=== PATIENT | female | born 1940 | race Caucasian/White ===

== ENCOUNTER 2017-12-05 19:12 | Inpatient (IN) | payer OTHER, BC ==
--- NOTE | 2017-12-05 19:47 | CPEKG ---
Heart Rate: 80 RR Interval: 750 P-R Interval: 220 QRSD Interval: 86 QT Interval: 344 QTC Interval: 397 P [place]: 31 QRS [place]: 1 T Wave [place]: 20 EKG Severity - ABNORMAL ECG - EKG Impression: SINUS RHYTHM EKG Impression: FIRST DEGREE AV BLOCK EKG Impression: BORDERLINE T ABNORMALITIES, ANTERIOR LEADS Electronically Signed By: Tim Tucker 05-Dec-2017 21:10:25
[2017-12-05 19:51] LABS: PLATELET COUNT 242 10^3/uL (150-400)
--- NOTE | 2017-12-05 19:52 | EDPHY ---
H & P Time Seen by Provider: 12/05/17 19:17 HPI/ROS: HPI Shortness of breath, not feeling well. 77-year-old female by private vehicle with her daughter. This patient is from [place]. She has been visiting her daughter looking at housing out here for relocation. She reports that yesterday with their out about looking at apartment she started feeling more fatigued than usual and had some mild shortness of breath. She was supposed to fly home this morning to [place] but did not feel up for this and her daughter changed her flight. She slept most of the day and woke at about 3:24 p.m.. She then started complaining of feeling more short of breath this evening. This is worse when she is laying flat. She reports having an intermittent dry hacky cough and had a temperature of 101 degrees at home this evening. No urinary complaints. Denies myalgias and arthralgias. No chest pain. ROS: Constitutional: As above. Eyes: No discharge. No changes in vision. ENT: No sore throat. No nasal congestion or rhinorrhea. Respiratory: No cough. As above. Cardiac: No chest pain, no palpitations. Gastrointestinal: No abdominal pain, no vomiting, no diarrhea. Genitourinary: No hematuria. No dysuria or increased frequency with urination. Musculoskeletal: No back pain. No neck pain. No myalgias or arthralgias. Skin: No rashes. Neurological: No headache. No focal weakness or altered sensation. Past medical history: Rheumatoid arthritis. She is on Remicade for this. Atrial fibrillation, type 2 diabetes, hypertension, hyperlipidemia, diverticulitis. Social history: As above. Nonsmoker. No alcohol. Physical Exam: General Appearance: Alert, no distress. This patient is responding to questions appropriately and in full sentences. This patient appears well- hydrated and well-nourished. Eyes: Pupils equal and round no pallor or injection. No lid edema, erythema or injection. Respiratory: There are no retractions, lungs are clear to auscultation with good air movement bilaterally. Cardiovascular: Regular rate and rhythm. No murmur. Gastrointestinal: Abdomen is soft and nontender, no masses, bowel sounds normal. No focal tenderness at McBurney's point. No Yañez sign. Neurological: Motor sensory function is grossly intact. Cranial nerves are normal. Gait is normal. Skin: Warm and dry, no rashes. Musculoskeletal: Neck is supple and nontender. Extremities are symmetrical. All joints range without pain or impingement. Psychiatric: No agitation. No depression. Database: EKG: EKG time is 7:45 p.m.; EKG shows a narrow complex normal sinus rhythm with a ventricular rate of 80. Intermittent PACs. 1st degree AV block. The QRS, QT intervals are within normal limits. There are no ST-T wave changes indicative of ischemic or injury pattern. No evidence of right heart strain. Interpreted by me. Imaging: Chest x-ray AP portable; the cardiac mediastinal silhouette is unremarkable. Cardiomegaly. No evidence of infiltrate or pneumothorax. No acute cardiopulmonary disease process noted. Interpreted by me. CT angiogram of chest; no pulmonary embolism. Please see radiologists report for further details. Procedures: Emergency department course: IV placed. Patient was placed on a die caster. Vital signs reviewed. Moderately hypertensive. Room air oxygen 89%. EKG obtained and reviewed by myself. 8:30 p.m., discussed emergency department workup results with patient and daughter. She is on 2 L of oxygen currently with a pulse oximetry of 91-92%. She states that she feels better as long as she is not exerting herself. I discussed an elevated D-dimer. She and her daughter consent to CT imaging to evaluate for pulmonary embolus. 9:00 p.m., we got the patient up and walked around the emergency department briefly. On room air pulse oximetry, drops to 83-84%. I discussed admission. The daughter would feel much more comfortable if she stayed in the hospital tonight. Hospitalist paged. 9:05 p.m., discussed case in detail with hospitalist. Patient accepted for admission Dr. Stone. Her remaining emergency department course under my care has been uneventful she was admitted in stable condition. Differential Diagnosis: The differential diagnosis on this patient includes but is not limited to viral syndrome/influenza, pneumonia, CHF, acute mountain sickness, acute coronary syndrome. This represents a partial list of diagnoses considered. These considerations are based on history, physical exam, past history, reassessment and diagnostic testing. Smoking Status: Former smoker Constitutional: Initial Vital Signs Temperature (C) 37.2 C 12/05/17 19:21 Heart Rate 84 12/05/17 19:21 Respiratory Rate 18 12/05/17 19:21 Blood Pressure 160/69 H 12/05/17 19:21 O2 Sat (%) 89 L 12/05/17 19:21 O2 Delivery Mode Nasal Cannula O2 (L/minute) 2 Allergies/Adverse Reactions: cephalexin [From Keflex] Allergy (Verified 12/05/17 19:30) ciprofloxacin Allergy (Verified 12/05/17 19:30) Home Medications: Medication Instructions Recorded Apixaban [Eliquis] 5 mg PO BID 12/05/17 Cetirizine [ZyrTEC 10 mg (*)] 10 mg PO HS 12/05/17 Cholecalciferol Vit D3 [Vitamin D3 2,000 units PO HS 12/05/17 2000 units tab (OTC)] DULoxetine [Cymbalta 60 MG (*)] 60 mg PO HS 12/05/17 Fluticasone Nasal [Flonase Nasal 2 sprays NASAL DAILY PRN 12/05/17 [place] (RX)] Losartan Potassium [Cozaar 50 mg 50 mg PO HS 12/05/17 (*)] Ranitidine HCl [Zantac] 150 mg PO BID 12/05/17 Remicade Infusion 0 mg IV .Q8WK 12/05/17 Simvastatin [Zocor] 20 mg PO HS 12/05/17 Verapamil ER [[place] SR/ER 240MG 240 mg PO HS 12/05/17 (*)] Mesalamine [Delzicol] 1,200 mg PO BID 12/06/17 metFORMIN HCL [Glucophage 500 mg 500 mg PO BIDMEAL 12/06/17 (*)] Medical Decision Making - Data Points Laboratory Results: Laboratory Results 12/05/17 19:45 12/05/17 19:45 Microbiology Results: MICROBIOLOGY 12/05/17 20:06 Nasal, Sinus - [place] Viral Transport Respiratory Panel ( PCR) - Final No Organism Detected Medications Given: Acetaminophen (Tylenol) 650 mg PO Q4HRS PRN PRN Reason: Pain, Mild/Fever, Can Take PO Stop: 06/03/18 21:11 Last Admin: 12/06/17 09:05 Dose: 650 mg Famotidine (Pepcid) 20 mg PO BID MITESH Stop: 06/03/18 21:59 Last Admin: 12/06/17 09:05 Dose: 20 mg Mesalamine (Delzicol) 1,200 mg PO BID MITESH Stop: 06/04/18 10:44 Last Admin: 12/06/17 12:29 Dose: 1,200 mg Throat Lozenges (Cepacol Lozenge) 1 ea PO PRN PRN PRN Reason: Sore Throat Stop: 06/04/18 08:33 Last Admin: 12/06/17 09:05 Dose: 1 ea Trazodone HCl (Trazodone) 50 mg PO HS [facility] Stop: 06/03/18 21:59 Last Admin: 12/05/17 23:29 Dose: 50 mg Discontinued Medications Apixaban (Eliquis) 5 mg PO BID MITESH Stop: 06/03/18 21:59 Last Admin: 12/06/17 09:05 Dose: 5 mg Departure - Departure Disposition: [facility] Acute Clinical Impression: Dyspnea, Hypoxia, Leukocytosis
[2017-12-05 20:01] LABS: CREATINE KINASE 26 IU/L (0-156)
[2017-12-05 20:08] LABS: INR 1.33 (0.83-1.16); PROTIME(PATIENT) 16.7 SEC (12.0-15.0)
[2017-12-05] MEDS ORDERED: IOPAMIDOL (ISOVUE 370) 100 ML BTL IV ONE (20:36)
[2017-12-05] MEDS ORDERED: ONDANSETRON DISINTEGRATING 4 MG TAB PO PRN (21:12)
[2017-12-05] MEDS ORDERED: ONDANSETRON 4 MG/2 ML VIAL IVP PRN (21:12)
[2017-12-05] MEDS ORDERED: NS 1,000 ML IV SCH (21:15)
[2017-12-05] MEDS ORDERED: guaiFENesin 600 MG TAB.ER PO PRN (21:50)
[2017-12-05] MEDS ORDERED: BENZONATATE 100 MG CAP PO PRN (21:50)
[2017-12-05] MEDS ORDERED: guaiFENesin/CODEINE PHOS 10 ML UDCUP PO PRN (21:50)
--- NOTE | 2017-12-05 21:58 | PDGENHP ---
History and Physical - Chief Complaint Acute shortness of breath - History of Present Illness Primary care provider: In [place] HPI: 77-year-old female presenting with acute shortness of breath characterized as dyspnea on exertion with associated generalized fatigue, nonproductive cough, sore throat and sinus congestion, and increased thirst. She reports that onset of symptoms were on the day prior to presentation and duration has been persistent worsening thereafter. She reports that overnight, she awakened numerous times feeling short of breath, or the symptom was not particularly alleviated by sitting upright or by changing position. She reports that she has chronic nocturia, but denies any overt dysuria, diarrhea, vomiting, chest pain. She reports that the shortness of breath is exacerbated by exertion, and somewhat alleviated by rest. She has been sleeping more than she normally would over the past 2 days, and between 5-6:00 p.m. On the date of arrival, she reports that the shortness of breath became quite severe and was associated with a fever to 101 degrees F. She is originally from [place] and prior to traveling to [facility], she had not been experiencing any exertional shortness of breath. Upon arrival to [place] 3 weeks ago, she did note some increased thirst and shortness of breath , but it would be alleviated by taking deep breaths and by resting. She has since traveled to visit her son in [place], and she reports no pulmonary or infectious symptoms during that time. Over the past several days she has had increased physical activity with her daughter, as she is looking for places to potentially move here in the [place] area. With the increase physical activity came increased shortness of breath symptoms. History Information - Allergies/Home Medication List Allergies/Adverse Reactions: cephalexin [From Keflex] Allergy (Verified 12/05/17 19:30) ciprofloxacin Allergy (Verified 12/05/17 19:30) Home Medications: Apixaban [Eliquis] 5 mg PO BID 12/05/17 [Last Taken 12/05/17 09:00] Cetirizine [ZyrTEC 10 mg (*)] 10 mg PO HS 12/05/17 [Last Taken 12/04/17] Cholecalciferol Vit D3 [Vitamin D3 2000 units tab (OTC)] 2,000 units PO HS 12/05 [Last Taken 12/04/17] Cymbalta Unk Dose mg PO HS 12/05/17 [Last Taken 12/04/17] Fluticasone Nasal [Flonase Nasal [place] (RX)] 2 sprays NASAL DAILY PRN 12/05/17 [ Last Taken Unknown] Losartan Unk Dose mg PO HS 12/05/17 [Last Taken 12/04/17] Remicade Infusion 0 mg IV .Q8WK 12/05/17 [Last Taken 09/27/17] Simvastatin Unk Dose mg PO HS 12/05/17 [Last Taken 12/04/17] Verapamil Unk Dose mg PO HS 12/05/17 [Last Taken 12/04/17] Zantac Unk Dose mg PO BID 12/05/17 [Last Taken 12/05/17 09:00] I have personally reviewed and updated: family history, medical history, social history, surgical history - Past Medical History atrial fibrillation (Diagnosis several years ago, had a stress test at that time ) Additional medical history: Rheumatoid arthritis, last dose of Remicade 2017, currently well controlled. Chronic nocturia. Chronic sinus congestion. Hypertension. Hyperlipidemia. Diabetes mellitus type 2 - Surgical History Additional surgical history: Knee surgery, shoulder surgery - Family History Additional family history: Second-degree relative with colon cancer, sibling with testicular cancer - Social History Smoking Status: Former smoker Alcohol Use: Occasionally (Most recent alcohol consumption was 3 alcoholic beverages 2 days ago) Drug Use: None Additional social history: Resides in [place], does not have a formal exercise routine at baseline Review of Systems Review of Systems: ROS: 10pt was reviewed & negative except for what was stated in HPI & below Constitutional: Reports: fever, weakness EENMT: Reports: nose congestion, sore throat Respiratory: Reports: cough, shortness of breath Physical Exam Physical Exam: Temp Pulse Resp BP Pulse Ox 37.2 C 81 16 159/78 H 94 12/05/17 19:21 12/05/17 20:31 12/05/17 20:31 12/05/17 20:31 12/05/17 21:15 O2 (L/minute) 2 Constitutional: no apparent distress, appears nourished, not in pain, uncomfortable Eyes: PERRL, anicteric sclera, EOMI Ears, Nose, Mouth, Throat: moist mucous membranes, hearing normal, ears appear normal, no oral mucosal ulcers, other (No tonsillar lesions) Cardiovascular: other (Regularly irregular), No systolic murmur, No tachycardia , No edema Respiratory: inspiratory crackles (Bilateral bases), No reduced air movement, No expiratory wheeze, No bronchial breath sounds, No respiratory distress Gastrointestinal: normoactive bowel sounds, soft, non-tender abdomen, other ( Unclear whether she has a soft tissue mass in the left abdomen), No distension Genitourinary: no bladder fullness, no bladder tenderness Skin: No abrasion, No rash Musculoskeletal: other (No effusions over the bilateral knees) Neurologic: AAOx3, sensation intact bilaterally, No weakness (Motor strength 5/ 5 bilateral lower extremity), No facial droop Psychiatric: interacting appropriately, not anxious, not encephalopathic, thought process linear Lymph, Heme, Immunologic: other (Mildly tender 2 cm bilateral submandibular lymph nodes without any anterior posterior cervical lymphadenopathy) Lab Data & Imaging Review 12/05/17 19:45 12/05/17 19:45 WBC 19.52 10^3/uL (3.80-9.50) H 12/05/17 19:45 RBC 4.63 10^6/uL (4.18-5.33) 12/05/17 19:45 Hgb 13.6 g/dL (12.6-16.3) 12/05/17 19:45 Hct 40.4 % (38.0-47.0) 12/05/17 19:45 MCV 87.3 fL (81.5-99.8) 12/05/17 19:45 MCH 29.4 pg (27.9-34.1) 12/05/17 19:45 MCHC 33.7 g/dL (32.4-36.7) 12/05/17 19:45 RDW 14.6 % (11.5-15.2) 12/05/17 19:45 Plt Count 242 10^3/uL (150-400) 12/05/17 19:45 MPV 9.8 fL (8.7-11.7) 12/05/17 19:45 Neut % (Auto) 74.2 % (39.3-74.2) 12/05/17 19:45 Lymph % (Auto) 13.6 % (15.0-45.0) L 12/05/17 19:45 Alfalfa % (Auto) 11.2 % (4.5-13.0) 12/05/17 19:45 Eos % (Auto) 0.1 % (0.6-7.6) L 12/05/17 19:45 Baso % (Auto) 0.3 % (0.3-1.7) 12/05/17 19:45 Nucleat RBC Rel Count 0.0 % (0.0-0.2) 12/05/17 19:45 Absolute Neuts (auto) 14.52 10^3/uL (1.70-6.50) H 12/05/17 19:45 Absolute Lymphs (auto) 2.65 10^3/uL (1.00-3.00) 12/05/17:45 Absolute Monos (auto) 2.18 10^3/uL (0.30-0.80) H 12/05/17 19:45 Absolute Eos (auto) 0.01 10^3/uL (0.03-0.40) L 12/05/17 19:45 Absolute Basos (auto) 0.05 10^3/uL (0.02-0.10) 12/05/17 19:45 Absolute Nucleated RBC 0.00 10^3/uL (0-0.01) 12/05/17 19:45 Immature Gran % 0.6 % (0.0-1.1) 12/05/17:45 Immature Gran # 0.11 10^3/uL (0.00-0.10) H 12/05/17 19:45 PT 16.7 SEC (12.0-15.0) H 12/05/17 19:45 INR 1.33 (0.83-1.16) H 12/05/17 19:45 APTT 44.8 SEC (23.0-38.0) H 12/05/17 19:45 D-Dimer 0.95 ug/mLFEU (0.00-0.50) H 12/05/17 19:45 VBG Lactic Acid 1.1 mmol/L (0.7-2.1) 12/05/17 19:45 Sodium 133 mEq/L (135-145) L 12/05/17 19:45 Potassium 4.1 mEq/L (3.5-5.2) 12/05/17 19:45 Chloride 101 mEq/L (97-110) 12/05/17 19:45 Carbon Dioxide 21 mEq/l (22-31) L 12/05/17 19:45 Anion Gap 11 mEq/L (8-16) 12/05/17 19:45 BUN 16 mg/dL (7-23) 12/05/17 19:45 Creatinine 0.7 mg/dL (0.6-1.0) 12/05/17 19:45 Estimated GFR > 60 12/05/17 19:45 Glucose 137 mg/dL (70-100) H 12/05/17 19:45 Calcium 10.2 mg/dL (8.5-10.4) 12/05/17 19:45 Creatine Kinase 26 IU/L (0-156) 12/05/17 19:45 CK-MB (CK-2) Fraction 0.43 ng/mL (0.00-3.19) 12/05/17 19:45 Troponin I 0.015 ng/mL (0.000-0.034) 12/05/17 19:45 NT-Pro-B Natriuret Pep 1530 pg/mL (0-450) H 12/05/17 19:45 Visualized and Interpreted imaging results: Yes Interpretation: Chest CT with atelectasis, no focal consolidation Visualized and Interpreted EKG results: Yes EKG Interpretation: Positive for: other (Sinus arrhythmia, Pac, Q-wave in lead 3 , 1st degree AV block, T-wave flattening in lead 3) Assessment & Plan Assessment: 77-year-old female presents with acute shortness of breath and fatigue Plan: 1. Shortness of breath. Acute, new problem this provider, further workup indicated. Unclear whether this is secondary to a viral or infectious precipitant, verses cardiopulmonary etiology, but patient has significant leukocytosis is suggestive that there will be a clearly identifiable cause -I suspect that her hypoxia is contributing to her symptomatic shortness of breath, and I have discussed this with Dr. Tim Tucker, and he has reported that the patient's initial O2 saturation was 88% on room air at rest and dropped to 83% on room air with exertion, indicating that there is hypoxic cause of her symptom -D-dimer positive, CT angiogram without focal airspace disease, awaiting read regarding whether there is any pulmonary embolism -respiratory viral panel sent, currently pending, will also check procalcitonin level, sed rate, blood cultures -if no infectious etiology is identified, will pursue further cardiac cause and get echocardiogram in a.m., Lexiscan stress test -supportive cough medication 2. Acute hyponatremia. Most likely secondary to either increased free water consumption or hypovolemia in the setting of infection, will give normal saline at 100 cc/hour overnight and repeat serum sodium level in a.m., checking urine sodium level with urinalysis 3. Rheumatoid arthritis. Chronic, patient chronically on Remicade, it is unlikely that this is the cause of patient's acute symptomology 4. Paroxysmal atrial fibrillation. Currently in a sinus mechanism on EKG, she is at risk for dove all the into paroxysmal atrial fibrillation in the setting of acute illness, will monitor on telemetry in the PCU -continue Eliquis 5. Hypertension. Continue home medications once reconciled 6. Leukocytosis. Significantly elevated, patient reports that she may have a history of mildly elevated white blood cell count but not nearly to this degree , will order outside records from her primary care provider office in a.m. Diet. Regular Prophylaxis. High risk patient, Eliquis Code. Full per patient, son and daughter are joint MD POA Disposition. Anticipated discharge is 12/06, pending further workup and stabilization of condition as outlined above.
[2017-12-05] MEDS: FAMOTIDINE 20 MG TAB PO SCH (23:29)
[2017-12-05] MEDS: APIXABAN 5 MG TAB PO SCH (23:29)
[2017-12-05] MEDS: traZODone 50 MG TAB PO SCH (23:29)
[2017-12-06 04:43] LABS: PLATELET COUNT 213 10^3/uL (150-400)
[2017-12-06] MEDS ORDERED: GADOBUTROL 10 ML VIAL IVP ONE (08:46)
[2017-12-06] MEDS: APIXABAN 5 MG TAB PO SCH (09:05)
[2017-12-06] MEDS: ACETAMINOPHEN 325 MG TAB PO PRN ×2 (09:05→21:47)
[2017-12-06] MEDS: FAMOTIDINE 20 MG TAB PO SCH ×2 (09:05→21:54)
[2017-12-06] MEDS: CEPACOL LOZENGE PO PRN ×2 (09:05→21:48)
--- NOTE | 2017-12-06 09:09 | PDMN ---
Medical Necessity Medical necessity: est los>2mn for hyponatremia, hypoxia likely r/t large liver masses, concerning for malignancy; admit for additional urgent w/u with MRI, US thyroid, possible colonoscopy, and surgical and oncology consults; comorbid afib, and RA; per order and H&P 12/05/17
[2017-12-06] MEDS ORDERED: FLUTICASONE NASAL 120 SPRAYS/16 GM MDI EACHNARE PRN (10:35)
[2017-12-06] MEDS ORDERED: MESALAMINE 400 MG CAP.DR PO SCH (10:45)
--- NOTE | 2017-12-06 12:01 | ASMTCMCOM ---
CM Note CM Note Notes: 12/06/2017 Case Management Note Reviewed chart. Discussed with PT and RN. PT eval indicates pt will d/c independent. Pt admitted for hypoxia and leukocytosis. There is a possiblity of malignancy that is requiring further work up. Case Management d/c poc: to be determined pending outcome of workup and pt needs at time of d/c. Case Management to follow. Date Signed: 12/06/2017 12:01 PM Electronically Signed By:Karina Cuadra RN
--- NOTE | 2017-12-06 14:50 | ECHO ---
[email or web address] [address] Main: [phone] Fax: Transthoracic Echocardiogram Name: JOSIE ROSSI MR#: [id number] Study Date: 12/06/2017 Study Time: 10:29 AM Date of : 1940 Age: 77 year(s) Height: 162.6 cm (64 in.) Weight: 81.65 kg (180 lb.) BSA: 1.87 m2 Gender: Female Examination: Echo Indication: Image Quality: Adequate Contrast: Requested by: Chinmay Stone BP: / Heart Rate: Rhythm: Indication: Procedure Staff [employer]: Vicki Ramirez [facility] Reading Physician: Devang Lucia MD Requesting Provider: Measurements: Chambers Valvular Assessment AV/MV Valvular Assessment TV/PV Normal Normal Normal Name Value Range Name Value Range Name Value Range Ao Katarzyna (2D): 2.9 cm (1.4 cm-2.6 AV meanP mmHg ( - ) TR Vmax: 2.80 mm/s ( - ) cm) JANINE (VTI): 1.8 cm ( - ) TR PGmax: 31 mmHg ( - ) IVSd (2D): 1.1 cm (0.6 cm-1.1 MV E Vmax: 0.82 m/s ( - ) syst. PAP: 36 mmHg ( - ) cm) MV A Vmax: 0.98 m/s ( - ) PV Vmax: 1.07 m/s (0.6 m/s-0.9 LVDd (2D): 4.7 cm (3.9 cm-5.3 MV E/A: 0.84 ( - ) m/s) cm) MV PHT: 0.070 s ( - ) PV PGmax: 5 mmHg ( - ) LVDs (2D): 2.6 cm (2.1 cm-4 cm) MVA (PHT): 3.1 s ( - ) LVPWd (2D): 1.0 cm ( - ) LVOTd 1.8 cm 1.8 cm mm LVEF (BP): 62 % (>=55 %) RVDd(2D): 3.2 cm (1.9 cm-3.8 cmmm) Continued Measurements: Chambers Valvular Assessment AV/MV Valvular Assessment TV/PV Name Value Name Value Name Value LADs: 4.5 cm MV DecTime: 229 m/s CVP (est.): 5 mmHg LADs Lon.8 cm MV E' Septal: 0.05 m/s LA Area: 20.4 cm2 MV E/E' Septal: 17.60 LA Volume: 59 ml MV E/E' Lateral: 10.40 LA Volume Index: 31.6 ml/m2 RA Area: 13.0 cm2 Additional Vessels Patient: JOSIE ROSSI Study Date: 12/06/2017 Page 1 of 2 10:29 AM Name Value Ao Ascendin.9 cm Inferior Vena Cava: 1.4 cm Findings: Left Ventricle: Normal size left ventricle. No LV hypertrophy. Normal global systolic LV function. EF is 62 %. No regional wall motion abnormality. Normal diastolic LV function. Right Ventricle: Normal size right ventricle. Left Atrium: The left atrium is normal in size. Right Atrium: The right atrium is normal in size. Mitral Valve: The mitral valve is normal in appearance and function. Mild mitral valve leaflet calcification is present. Mild mitral valve regurgitation is present. No mitral stenosis is present. Aortic Valve: The aortic valve is normal in appearance and function. Aortic sclerosis is present. There is no aortic valve regurgitation. No aortic valve stenosis is present. Tricuspid Valve: The tricuspid valve is normal in appearance and function. Mild tricuspid regurgitation is present. The pulmonary artery pressure is normal. Right ventricular systolic pressure measures 36mmHg. Pulmonic Valve: The pulmonic valve is normal in appearance and function. There is no pulmonic regurgitation seen. Aorta: The aorta is normal. Normal size aortic root measuring 2.9 cm. Normal size ascending aorta measuring 2.9 cm. IVC: The IVC is normal sized. Pericardium: No pericardial effusion. No pleural effusion. (No Signature Object) Patient: JOSIE ROSSI Study Date: 12/06/2017 Page 2 of 2 10:29 AM [id number]
--- NOTE | 2017-12-06 15:00 | GHP ---
[f rep st] HISTORY AND PHYSICAL DATE OF ADMISSION: 12/05/2017 REASON FOR CONSULTATION: Liver mass with left renal mass. HISTORY OF PRESENT ILLNESS: The patient is a pleasant 77-year-old female who currently lives in [place], [place]. Her children live locally. She was visiting her children in the process of moving permanently to [place] when she noted acute onset of shortness of breath, fatigue, nonproductive coug h, and fever. She presented to the emergency department at [facility] on December 05. The patient had a CT of the chest performed (CT angiogram). This revealed no evidence of pulmonary embolism. The patient was found to have a large mass in the liver. There was some nonspecific asym metry in the thyroid gland. The patient had a subsequent MRI of the abdomen performed this morning, which demonstrates a large bi lobed mass involving the caudal area of the right lobe of the liver. It measures 9 x 7.5 x 7 cm. It appears to invade the right kidney. It is inseparable from the 2nd portion of the duodenum. There is a small indeterminant lesion in the dome of the right liver. There is an exophytic 3 cm left dora l mass noted. The patient has been otherwise asymptomatic and actually feels better today. She specifically denies abdominal pain or bloating. She denies nausea or vomiting. Denies diarrhea or blood in the stool. Denies black stools. Denies hematuria. Denies flank pain. Denies weight loss. She reports having an unremarkable colonoscopy approximately 2 years ago. When seen this afternoon, she is accompanied by her daughter, Adelina. PAST MEDICAL HISTORY: 1. Longstanding diagnosis of rheumatoid arthritis. The patient has been on Remicade for approximate ly 10 years (last dose September 13, 2017). 2. Hypertension. 3. Hyperlipidemia. 4. Type 2 diabetes. PAST SURGICAL HISTORY: 1. Knee surgery. 2. Shoulder surgery. FAMILY MEDICAL HISTORY: Patient's brother of metastatic testicular cancer at the age of 20. Letty ballard reports a second-degree relative with colorectal cancer. She denies any other known family history of malignancy. SOCIAL HISTORY: The patient is . She lives currently in [place], [place], but is in the process of moving to [place], [place]. Given her new diagnosis, she plans to live locally with her daughter, Adelina. She has a son who lives in [place]. She is retired. 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 She smoked int ermittently during her youth, but quit approximately 40 years ago. She drinks alcohol occasionally. REVIEW OF SYSTEMS: As outlined above. The remainder of a 12-point review of systems otherwise negat janie. PHYSICAL EXAMINATION: GENERAL: Patient is lying comfortably in bed. She is in no acute distress. There is no evidence of scleral icterus. HEART: Regular without murmur. ABDOMEN: Soft, nontender, nondistended. There is specifically no right upper quadrant tenderness, guarding, or rebound. No h epatomegaly. No mass. No abdominal distention. There is no flank tenderness bilaterally. No extre mity swelling or edema. NEUROLOGIC: Patient is alert, oriented, and appropriate. IMAGING STUDIES: As per HPI. LABORATORY STUDIES: Sodium 134, potassium 4.2, chloride 103, bicarb 22, BUN 15, creatinine 0.5, calc ium is 9.9. AFP is 98. CEA is 3.5. CA-125 is 21.2. TSH is 0.751. CBC: White count 19.9, hemoglobin 13.5, hematocrit 42.2; platelet count is 213,000. The patient has a neutrophilia. IMPRESSION: 1. Large bilobed hepatic mass with invasion into right kidney. 2. Left renal mass. 3. Longstanding history of rheumatoid arthritis with recent Remicade use. Zeina is a pleasant 77-year-old female who presents with some nonspecific symptoms and is found to h ave a large right hepatic mass with evidence of invasion of the right kidney and a separate left dora l mass. The picture is concerning for malignancy, though the picture is somewhat nonspecific. I hav e discussed her case with Dr. Stone of the hospitalist service. I agree with the plan for a CT-guid ed biopsy, which is scheduled to be done tomorrow morning. Further recommendations regarding treatme nt options will be made once the biopsy results are known. PLANS: The patient plans to stay locally with her daughter and would like to seek treatment in our o ice. She could potentially be discharged after her biopsy with outpatient followup to review the r esults. The patient and her daughter had multiple questions which were answered. Total time for today's visit was approximately 40 minutes of which greater than 50% was spent in coun seling and care coordination. /[id number]/MODL
[2017-12-06] MEDS ORDERED: metFORMIN HCL 500 MG TAB PO SCH (18:00)
--- NOTE | 2017-12-06 18:53 | HOSPPROG ---
Hospitalist Progress Note Assessment/Plan: Assessment: 77-year-old female presents with acute shortness of breath and fatigue c/b new diagnosis intra-abdominal malignancy Plan: 1. Shortness of breath. Suspect this is 2/2 fatigue from malignancy and hypoxia 2/2 subsequent atelectasis from poor mobility/energy -encouraged IS -cont ongoing o2, wean as lizbeth 2. Acute hyponatremia. Improving w/ IVF NS 3. Rheumatoid arthritis. Chronic, patient chronically on Remicade, will d/w Rheum tomorrow whether she needs to stay off remicade in setting of malignancy 4. Paroxysmal atrial fibrillation. Currently in a sinus mechanism on EKG ( personally interpreted), OK to transfer to off tele, monitor VS -hold eliquis to get liver biopsy 5. Hypertension. Continue home medications 6. Suspected Renal Cell Carcinoma. Acutely identified, new problem, further w/u indicated. MRI abd demonstrating large R lobe of liver mass (9x7.5cm) immediately adjacent to R kidney and portion of duodenum w/ 3x3cm L kidney solid mass, likely RCC -getting tumor markers (AFP, CEA, CA 19-9, CA-125, LDH), thyroid US given abnl on CT, and Echo given possible LA appendage mass (at risk w/ RCC) -d/w Dr. Hernandez, he recommends liver biopsy, will arrange for 48hrs from last eliquis dose (12/06 9 a.m.) Diet. Regular Prophylaxis. High risk patient, SCDs Code. Full per patient, son and daughter are joint MD POA Disposition. Anticipated discharge is 12/08, following liver biopsy. Subjective: patient w/ ongoing fatigue, sleeping during day Objective: Vital Signs Temp Pulse Resp BP Pulse Ox 37.0 C 84 17 166/76 H 94 12/06/17 17:44 12/06/17 17:44 12/06/17 17:44 12/06/17 17:44 12/06/17 17:44 Laboratory Results 12/06/17 03:22 12/06/17 03:22 12/05/17 12/06/17 12/07/17 05:59 05:59 05:59 Intake Total 440 350 Output Total 650 1000 Balance -210 -650 PT 16.7 SEC (12.0-15.0) H 12/05/17 19:45 INR 1.33 (0.83-1.16) H 12/05/17 19:45 - Physical Exam Constitutional: no apparent distress, not in pain, obese, No uncomfortable Cardiovascular: regular rate and rhythym, no murmur, rub, or gallop, No edema Respiratory: no respiratory distress, no rales or rhonchi, inspiratory crackles (bilat) Gastrointestinal: normoactive bowel sounds, soft, non-tender abdomen, other ( hepatomegally, non-tender), No no palpable masses Skin: warm, No rash Neurologic: AAOx3, sensation intact bilaterally, No weakness (motor 5/5 bilat LE ) Psychiatric: not anxious, not encephalopathic, flat affect, No agitated ICD10 Worksheet Patient Problems: Problems Problem Status Onset Dyspnea Acute Hypoxia Acute Leukocytosis Acute
[2017-12-06] MEDS ORDERED: NON-FORMULARY NEW DRUG (Simvastatin [Zocor] 20 MG) PO SCH (21:00)
[2017-12-06] MEDS: ATORVASTATIN CALCIUM 10 MG TAB PO SCH (21:52)
[2017-12-06] MEDS: CHOLECALCIFEROL VIT D3 2,000 UNITS TAB/CAP PO SCH (21:52)
[2017-12-06] MEDS: LOSARTAN POTASSIUM 50 MG TAB PO SCH (21:53)
[2017-12-06] MEDS: CETIRIZINE 10 MG TAB PO SCH (21:53)
[2017-12-06] MEDS: DULoxetine 60 MG CAP PO SCH (21:54)
[2017-12-06] MEDS: VERAPAMIL ER 240 MG TAB PO SCH (21:54)
[2017-12-06] MEDS: traZODone 50 MG TAB PO SCH (21:55)
[2017-12-07] MEDS: FAMOTIDINE 20 MG TAB PO SCH ×2 (09:22→21:10)
[2017-12-07] MEDS: ACETAMINOPHEN 325 MG TAB PO PRN (09:28)
--- NOTE | 2017-12-07 15:54 | HOSPPROG ---
Hospitalist Progress Note Assessment/Plan: Assessment: 77-year-old female presents with acute shortness of breath and fatigue c/b new diagnosis intra-abdominal malignancy Plan: 1. Shortness of breath. Suspect this is 2/2 fatigue from malignancy and hypoxia 2/2 subsequent atelectasis from poor mobility/energy -encouraged IS -counseled patient and daughter that I suspect she will benefit from home o2, particularly with exertion, and we will cont room air challenges at rest and w/ ambulation to confirm, likely 2/2 atelectasis 2/2 immobility 2/2 malignancy 2. Acute hyponatremia. Improved w/ IVF NS 3. Rheumatoid arthritis. Chronic, patient chronically on Remicade, will d/w her Rheum tomorrow whether she needs to stay off remicade in setting of malignancy 4. Paroxysmal atrial fibrillation. Currently in a sinus mechanism on EKG ( personally interpreted), OK to transfer to off tele, monitor VS -hold eliquis x 48hrs to get liver biopsy safely 5. Hypertension. Continue home medications 6. Suspected Renal Cell Carcinoma.MRI abd demonstrating large R lobe of liver mass (9x7.5cm) immediately adjacent to R kidney and portion of duodenum w/ 3x3cm L kidney solid mass, likely RCC -d/w Dr. Hernandez, will arrange outpt f/u once biopsy performed Diet. Regular Prophylaxis. High risk patient, SCDs Code. Full per patient, son and daughter are joint MD POA Disposition. Anticipated discharge is 12/08, following liver biopsy. Subjective: fatigue, attempting to engage w/ therapies Objective: Vital Signs Temp Pulse Resp BP Pulse Ox 36.7 C 57 L 14 125/65 H 95 12/07/17 15:07 12/07/17 15:07 12/07/17 15:07 12/07/17 15:07 12/07/17 15:07 Laboratory Results 12/06/17 03:22 12/06/17 03:22 12/06/17 12/07/17 12/08/17 05:59 05:59 05:59 Intake Total 440 1100 Output Total 650 2600 300 Balance -210 -1500 -300 PT 16.7 SEC (12.0-15.0) H 12/05/17 19:45 INR 1.33 (0.83-1.16) H 12/05/17 19:45 - Time Spent With Patient Time Spent with Patient: greater than 35 minutes Time Spent with Patient: Greater than 35 minutes spent on this patients care, greater than 50% of time spent counseling, educating, and coordinating care regarding the above mentioned plan. - Physical Exam Constitutional: no apparent distress, not in pain, No uncomfortable Cardiovascular: regular rate and rhythym, no murmur, rub, or gallop, No edema Respiratory: inspiratory crackles, No reduced air movement, No expiratory wheeze , No bronchial breath sounds Gastrointestinal: normoactive bowel sounds, soft, non-tender abdomen, no palpable masses Neurologic: AAOx3 Psychiatric: interacting appropriately, not anxious, not encephalopathic, thought process linear ICD10 Worksheet Patient Problems: Problems Problem Status Onset Dyspnea Acute Hypoxia Acute Leukocytosis Acute
[2017-12-07] MEDS: VERAPAMIL ER 240 MG TAB PO SCH (21:10)
[2017-12-07] MEDS: traZODone 50 MG TAB PO SCH (21:10)
[2017-12-07] MEDS: CETIRIZINE 10 MG TAB PO SCH (21:10)
[2017-12-07] MEDS: CHOLECALCIFEROL VIT D3 2,000 UNITS TAB/CAP PO SCH (21:11)
[2017-12-07] MEDS: DULoxetine 60 MG CAP PO SCH (21:11)
[2017-12-07] MEDS: ATORVASTATIN CALCIUM 10 MG TAB PO SCH (21:11)
[2017-12-07] MEDS: LOSARTAN POTASSIUM 50 MG TAB PO SCH (21:11)
[2017-12-08] MEDS: CEPACOL LOZENGE PO PRN (00:39)
--- NOTE | 2017-12-08 09:15 | PDHOMEO2F ---
Home Oxygen Face to Face Home Orders: I certify that a physician or a nurse practitioner or physician's microbiology lab assistant has had a [id number] encounter with this patient on the date of this order due to the diagnosis listed, which relates to the primary reason the patient requires home oxygen. Alternative treatments have been tried, or considered, and deemed ineffective. It is anticipated that supplemental oxygen will result in improvement with treatment. Home oxygen qualifying diagnosis: Metastatic Renal Cell Carcinoma SpO2 on room air (%): 86 Frequency of home oxygen needed: continuous Home oxygen liters per minute: 2 Home oxygen delivery device: nasal cannula Concentrator: Yes E-tanks for mobility and back up: Yes If ordering portable O2, is the patient mobile in the home?: Yes I certify that, based on these findings, the home oxygen is medically necessary for this patient for the following length of time. Length of time home oxygen needed: 99 years
[2017-12-08] MEDS: FAMOTIDINE 20 MG TAB PO SCH (10:05)
--- NOTE | 2017-12-08 10:08 | ASMTCMCOM ---
CM Note CM Note Notes: 12/08/2017 Case Management Note Met w/pt to discuss d/c needs. Pt agreeable to home child care provider and PT. Pt plans to stay with daughter at [address] [address]. Daughter Adelina is best contact for appointments in the home at [phone]. Pt cell is [phone]. Faxed referral to [facility]. Contacted on phone, able to accept pt. Anticipating d/c later today. Case Management d/c poc: [facility] RN PT Date Signed: 12/08/2017 10:07 AM Electronically Signed By:Karina Cuadra RN
--- NOTE | 2017-12-08 12:13 | SOAPPROG ---
MARY ELLEN Progress Note Assessment/Plan: Assessment: 1) Probable metastatic kidney cancer (liver mass / kidney mass) Plan: Case d/w Dr. Bertha Pastrana will get a biopsy of her liver mass today. She will be discharged later today after her biopsy. Our office will arrange for her to follow up with one of our doctors in [place] next week to review the biospy result, and formulate a treatment plan. I have given Zeina the contact information for our office. She is comfortable with the plan. Her questions were answered. 12/08/17 12:10 Subjective: Feels well overall. Denies pain. Biopsy planned for later today. Objective: Vital Signs Temp Pulse Resp BP Pulse Ox 36.7 C 77 16 144/73 H 86 L 12/08/17 10:50 12/08/17 11:14 12/08/17 10:50 12/08/17 10:50 12/08/17 11:14 Laboratory Results 12/06/17 03:22 12/06/17 03:22 12/07/17 12/08/17 12/09/17 05:59 05:59 05:59 Intake Total 1100 1400 Output Total 2600 700 200 Balance -1500 700 -200 PT 16.7 SEC (12.0-15.0) H 12/05/17 19:45 INR 1.33 (0.83-1.16) H 12/05/17 19:45 - Time Spent With Patient Time Spent With Patient: 15 minutes Physical Exam - Physical Exam General Appearance: alert, no apparent distress EENT: PERRL/EOMI Abdomen: non-tender, soft Neuro/Psych: alert, normal mood/affect ICD10 Worksheet Patient Problems: Problems Problem Status Onset Dyspnea Acute Hypoxia Acute Leukocytosis Acute
[2017-12-08] MEDS ORDERED: fentaNYL 100 MCG/2 ML INJ IVP PRN (13:19)
[2017-12-08] MEDS ORDERED: FLUMAZENIL 0.5 MG/5 ML MDV IVP PRN (13:19)
[2017-12-08] MEDS ORDERED: MIDAZOLAM 2 MG/2 ML VIAL IVP PRN (13:19)
[2017-12-08] MEDS ORDERED: MEPERIDINE 25 MG/ML SYR IVP PRN (13:19)
[2017-12-08] MEDS ORDERED: NALOXONE HCL 0.4 MG/ML INJ IVP PRN (13:19)
[2017-12-08] MEDS ORDERED: NS 1,000 ML IV SCH (13:30)
[2017-12-08] MEDS ORDERED: LIDOCAINE 1% 300 MG/30 ML SDV ONE (14:14)
[2017-12-08] MEDS ORDERED: oxyCODONE IR 5 MG TAB PO PRN (17:07)
[2017-12-08] MEDS ORDERED: oxyCODONE IR 5 MG TAB PO ONE (17:07)
--- NOTE | 2017-12-08 17:09 | PDIAF ---
- Diagnosis Diagnosis: New diagnosis metastatic cancer, likely renal cell Code Status: Full Code - Medication Management Discharge Medications: Medications to Continue on Transfer Cetirizine [ZyrTEC 10 mg (*)] 10 mg PO HS 12/05/17 [Last Taken 12/04/17] Cholecalciferol Vit D3 [Vitamin D3 2000 units tab (OTC)] 2,000 units PO HS 12/05 [Last Taken 12/04/17] DULoxetine [Cymbalta 60 MG (*)] 60 mg PO HS 12/05/17 [Last Taken 12/04/17] Fluticasone Nasal [Flonase Nasal [place]] 2 sprays NASAL DAILY PRN 12/05/17 [Last Taken Unknown] Losartan Potassium [Cozaar 50 mg (*)] 50 mg PO HS 12/05/17 [Last Taken 12/04/17] Ranitidine HCl [Zantac] 150 mg PO BID 12/05/17 [Last Taken 12/05/17 09:00] Simvastatin [Zocor] 20 mg PO HS 12/05/17 [Last Taken 12/04/17] Verapamil ER [Calan SR/ER 240MG (*)] 240 mg PO HS 12/05/17 [Last Taken 12/04/17] Acetaminophen [Tylenol 325mg (*)] 650 mg PO Q4HRS PRN tab 12/08/17 [Last Taken Unknown] Apixaban [Eliquis] 5 mg PO BID #0 12/08/17 [Last Taken 12/05/17 09:00] Benzocaine/Menthol 15/4 [Cepacol Lozenge] 1 ea PO PRN PRN lozenge 12/08/17 [ Last Taken Unknown] Benzonatate [Tessalon Pearles] 100 mg PO TID PRN #30 cap 12/08/17 [Last Taken Unknown] oxyCODONE IR [Oxycodone Ir (*)] 5 mg PO Q4 PRN #20 tab 12/08/17 [Last Taken Unknown] Discharge Medications: Refer to the Discharge Home Medication list for PRN reason. PICC Care - Routine: N/A - Orders Services needed: Home Care, Registered Nurse, Physical Therapy Home Care Face to Face: I certify that this patient was under my care and that I had the required [id number] encounter meeting the encounter requirements on the discharge day. My findings support the fact that the patient is homebound as defined in Home Care Face to Face Continued: CMS Chapter 7 Medicare Benefits Manual 30.1.1 , The condition of the patient is such that there exists a normal inability to leave home and consequently, leaving home would require a considerable and taxing effort. Isolation Type: None Oxygen: 2 LPM continuous Diet Recommendation: no restrictions on diet Sutures/[place] Site: keep liver biopsy site clean and dry, bandaged Additional Instructions: 1. Please follow-up with [facility] as scheduled next Wednesday 2. Please restart your Eliquis tomorrow AM 3. Please establish outpatient rheumatology care with Dr. Karl Ferguson at your convenience - Follow Up Care Current Providers and Referrals: CARLA TRIMBLE [Other] - As per Instructions Kailash Munguia MD [Medical Doctor] - Karl Ferguson MD [[facility] Primary Care Provider] -
--- NOTE | 2017-12-08 17:09 | PDRADPN ---
Radiology Procedure Note Date of Procedure: 12/08/17 Radiologist: Sylvain Garcia Preparation Supervisor(s): Sudha De Oliveira US Tech Anesthesia: IV Sedation (Fentanyl only) Pre-op Diagnosis: Liver mass - RT lobe Post-op Diagnosis: Liver mass Indication: Liver mass Procedure: US guided liver biopsy - 18 ga cores x 6 Finding(s): No bleeding Inf/Abcess present in the surg proc area at time of surgery?: No Depth: Organ Space (Liver) EBL: Minimal Complications: None Drains: Other (None)
--- NOTE | 2017-12-08 17:27 | PDDCSUM ---
Discharge Summary Discharge Summary: DISCHARGE SUMMARY FOLLOW-UP ITEMS: Liver biopsy results pending at time of discharge to be followed up by [facility] DATE OF ADMISSION: 12/05/2017 DATE OF DISCHARGE: 12/08/2017 DISCHARGE DIAGNOSES: 1. New diagnosis of metastatic suspected renal cell carcinoma 2. Acute hyponatremia 3. Acute atelectasis 4. Chronic rheumatoid arthritis 5. Paroxysmal atrial fibrillation 6. Chronic hypertension CONSULTATIONS: Oncology PROCEDURES / IMAGING: Liver biopsy on 12/08 CT angiogram of the chest demonstrating no pulmonary embolism MRI of the abdomen demonstrating 7.5 cm x 9 cm mass in the right lobe of the liver as well as 3 cm x 3 cm mass in the left kidney CHIEF COMPLAINT: Acute shortness of breath, fatigue SUBJECTIVE: Patient is feeling well at time discharge, she is having some right sided abdominal pain that this is managed PHYSICAL EXAM ON DISCHARGE: Systolic blood pressure 130-160, heart rate 67, afebrile overnight, SpO2 of 86% on room air, inspiratory crackles in the bilateral bases, alert awake oriented x3, in no apparent distress LABS ON DISCHARGE: White blood cell count 44533, hemoglobin 13.5, platelet count [id number] serum sodium 134, creatinine 0.8, LDH 607, AFP 98.1, CA 19-9 49, CA 125 21.2, CEA 3.55 HOSPITAL COURSE BY PROBLEM: The patient presented with acute shortness of breath and fatigue most likely secondary to a combination of hypoxia from atelectasis and generalized fatigue from metastatic malignancy. CT angiogram ruled out pulmonary embolism but identified a large liver mass, and an MRI of the abdomen demonstrated large liver mass adjacent to right kidney and duodenum with solid tumor mass in the left kidney, suggesting metastatic renal cell carcinoma. She underwent liver biopsy after her Eliquis was held for 48 hr. She underwent physical therapy and respiratory therapy evaluations, and was deemed appropriate for home care services as well as home supplemental oxygen, likely required because of atelectasis from generalized fatigue and hypoventilation from her underlying malignancy. She also received IV fluids for her hyponatremia and she was otherwise continued on all of her home medications, with the exception of holding Eliquis during her hospitalization recommending resumption the day after discharge. Goals of care conversations took place between myself and the patient and her daughter, to help identify where the patient would like to receive ongoing care. The patient is from [place] and she is considering relocating to the [place] area where she has 1 daughter and a son living nearby in [place]. The patient would like to engage in goals of care conversations with our [facility] Oncology after pathology results demonstrate the type of malignancy and further prognostic information is available thereafter. The patient may be open to aggressive treatment modalities, depending on the prognosis presented to her. She will follow up at [facility] next Wednesday. The patient has chronic rheumatoid arthritis and has chronically been on Remicade with the last dosage in August of 2017. She is currently asymptomatic , and I have asked 1 of our rheumatology colleagues whether the patient should temporarily hold her Remicade until malignancy treatment is established, and they have concur that this seems like the most reasonable approach, given that the patient is currently asymptomatic. I attempted to contact the patient's regular paranormal investigator in [place], but was unable to reach that paranormal investigator on the number that was provided to me by the patient and her family. Consequently, I have recommended the patient follow up with Dr. Karl Ferguson here in [place] following her care decisions made at [facility]. DISCHARGE MEDICATIONS: Please see official discharge medication reconciliation sheet in chart , continue home medications with the addition of oxycodone immediate release for any post biopsy pain, resume Eliquis beginning tomorrow morning. DISCHARGE INSTRUCTIONS: Please follow up with [facility] next Wednesday as scheduled, schedule follow-up with outpatient Rheumatology thereafter. TIME SPENT: Greater than 30 minutes were spent on direct patient care, as well as discharge planning and preparation.
[2017-12-08 19:47] VITALS: BP 126/58
--- NOTE | 2017-12-09 12:21 | ASDISCHSUM ---
Discharge Information Plan Status:Home with Home Health Medically Cleared to Leave:12/08/2017 Discharge Date:12/08/2017 07:31 PM CM D/C Disposition:Home Health Service ADT D/C Disposition:Home Health Service Projected Discharge Date:12/08/2017 11:00 AM Transportation at D/C: Discharge Delay Reason: Follow-Up Date:12/08/2017 11:00 AM Discharge Slot: Final Diagnosis: Placement Information Referral Type:*Home Health Care Services Referral ID:[id number] Provider Name:[facility] Address 1:[address] [facility] [address] Address 2: City:[place] Selection Factors: State:[place] Patient Contact Information Contact Name:YORDY Relationship:Daughter Address:[address] Work Phone: City:[place] Alternate Phone: State/Zip Code:[place] [address] Email: Financial Information Financial Class:Medicare Primary Plan Desc:MEDICARE INPATIENT Primary Plan Number:[id number] Secondary Plan Desc: [facility] Secondary Plan Number:[id number] Assessment Information [facility] CM Progress Note CM Note CM Note Notes: 12/06/2017 Case Management Note Reviewed chart. Discussed with PT and RN. PT eval indicates pt will d/c independent. Pt admitted for hypoxia and leukocytosis. There is a possiblity of malignancy that is requiring further work up. Case Management d/c poc: to be determined pending outcome of workup and pt needs at time of d/c. Case Management to follow. Date Signed: 12/06/2017 12:01 PM Electronically Signed By:Karina Cuadra RN [facility] CM Progress Note CM Note CM Note Notes: 12/08/2017 Case Management Note Met w/pt to discuss d/c needs. Pt agreeable to home visitor and PT. Pt plans to stay with daughter at [address] [address]. Daughter Adelina is best contact for appointments in the home at [phone]. Pt cell is [phone]. Faxed referral to [facility]. Contacted on phone, able to accept pt. Anticipating d/c later today. Case Management d/c poc: [facility] RN PT Date Signed: 12/08/2017 10:07 AM Electronically Signed By:Karina Cuadra RN Intervention Information
== END 2017-12-08 19:31 | disposition home health service (06) | DRG 436 ==
LOC: OBSVTOIN 21:12 → F2W 22:16
PROVIDERS: ADMIT Internal Medicine; ATTEND Internal Medicine
PROC: 0FB13ZX Excision of Right Lobe Liver, Percutaneous Approach, Diagnostic (ICD-10-PCS; principal; 2017-12-08)
DX: C22.8 Malignant neoplasm of liver, primary, unspecified as to type (principal); E87.1 Hypo-osmolality and hyponatremia; J98.11 Atelectasis; M06.9 Rheumatoid arthritis, unspecified; I48.0 Paroxysmal atrial fibrillation; E11.9 Type 2 diabetes mellitus without complications; I10 Essential (primary) hypertension; E78.5 Hyperlipidemia, unspecified; Z87.891 Personal history of nicotine dependence
CPT/HCPCS: 86301-90; 86304-90; 97116-GP; 97161-GP; 97165-GO; 97530-GP; A9585; G8978-GP-CI; G8979-GP-CI; G8987-GO-CJ; G8988-GO-CI; G8989-GO-CI; J2250; J2310; J3010; Q9967

== ENCOUNTER → 2017-12-13 | Outpatient (CLI) | payer OTHER, BC | LOC: FIMAGING 14:34 | PROVIDERS: ATTEND Internal Medicine Hematology & Oncology | DX: R07.9 Chest pain, unspecified (principal); C22.9 Malignant neoplasm of liver, not specified as primary or secondary | CPT/HCPCS: 86705-90 ==

== ENCOUNTER 2017-12-20 08:13 | Inpatient (IN) | payer OTHER, BC ==
[2017-12-20] MEDS ORDERED: NS 1,000 ML IV ONE (08:21)
--- NOTE | 2017-12-20 08:21 | EDPHY ---
H & P Time Seen by Provider: 12/20/17 08:21 HPI/ROS: CHIEF COMPLAINT: Abdominal pain and dyspnea HISTORY OF PRESENT ILLNESS: The patient presents to the ED with complaints of abdominal pain and dyspnea. The patient's symptoms reportedly have been increasing over the past several days. The patient was hospitalized at the end of November and diagnosed with metastatic cancer presumably from a renal cell source. The patient had been anticoagulated with Eliquis for chronic atrial fibrillation. The patient was discharged and has followed up as an outpatient with Dr. Munguia from [facility]. The patient has been having issues with acute pain over the past week and a half. She was started on a fentanyl patch also given a nonnarcotic prescription which had improved her pain. The patient has been sleeping on her daughter's couch. The patient reportedly developed acute pain in the er tech hours and was unable to walk. She did have a mild fall without significant trauma. This morning the patient continued to have pain and dyspnea and inability to ambulate which prompted her visit to the ED. The patient is currently anticoagulated with Eliquis. She was scheduled to be seen for chemotherapy intake at [facility]. REVIEW OF SYSTEMS: A comprehensive 10 point review of systems is otherwise negative aside from elements mentioned in the history of present illness. Source: Patient Exam Limitations: No limitations - Medical/Surgical History Hx Asthma: No Hx Chronic Respiratory Disease: No Hx Diabetes: No Hx Cardiac Disease: Yes Hx Renal Disease: No Hx Cirrhosis: No Hx Alcoholism: No Hx HIV/AIDS: No Hx Splenectomy or Spleen Trauma: No Other PMH: rheumatoid arth, afib, dm - poss resolved, hypertension, hyperlipidemia, surg - ruptured intest abcess, colostomy - reversed, hysterectomy, L rotator cuff surg, L knee replace, cataract surg bilat eyes, deg disc disease - Social History Smoking Status: Former smoker - Physical Exam Exam: General Appearance: Elderly female, mild tachypnea Eyes: Pupils equal and round no pallor or injection ENT, Mouth: Mucous membranes moist Respiratory: There are no retractions, lungs are clear to auscultation Cardiovascular: Regular rate and rhythm Gastrointestinal: Epigastric tenderness to palpation Neurological: 5/5 strength all 4 extremities Skin: Warm and dry, no rashes Musculoskeletal: Neck is supple nontender Extremities: symmetrical, full range of motion Constitutional: Initial Vital Signs Temperature (C) 36.8 C 12/20/17 08:23 Heart Rate 74 12/20/17 08:23 Respiratory Rate 16 12/20/17 08:23 Blood Pressure 111/49 L 12/20/17 08:23 O2 Sat (%) 97 12/20/17 08:23 O2 Delivery Mode Nasal Cannula O2 (L/minute) 2 Allergies/Adverse Reactions: cephalexin Allergy (Unknown, Unverified 12/08/17 11:52) ciprofloxacin Allergy (Verified 12/05/17 19:30) Home Medications: Medication Instructions Recorded Cetirizine [ZyrTEC 10 mg (*)] 10 mg PO HS 12/05/17 Cholecalciferol Vit D3 [Vitamin D3 2,000 units PO HS 12/05/17 2000 units tab (OTC)] DULoxetine [Cymbalta 60 MG (*)] 60 mg PO HS 12/05/17 Fluticasone Nasal [Flonase Nasal 2 sprays NASAL DAILY PRN 12/05/17 [place]] Losartan Potassium [Cozaar 50 mg 50 mg PO HS 12/05/17 (*)] Ranitidine HCl [Zantac] 150 mg PO BID 12/05/17 Simvastatin [Zocor] 20 mg PO HS 12/05/17 Verapamil ER [Calan SR/ER 240MG 240 mg PO HS 12/05/17 (*)] Acetaminophen [Tylenol 325mg (*)] 650 mg PO Q4HRS PRN tab 12/08/17 Apixaban [Eliquis] 5 mg PO BID #0 12/08/17 Benzocaine/Menthol 15/4 [Cepacol 1 ea PO PRN PRN lozenge 12/08/17 Lozenge] Benzonatate [Tessalon Pearles] 100 mg PO TID PRN #30 cap 12/08/17 oxyCODONE IR [Oxycodone Ir (*)] 5 mg PO Q4 PRN #20 tab 12/08/17 Medical Decision Making - Diagnostics Imaging Results: Imaging Impressions Abdomen CT 12/20/17 09:26 Impression: 1. Bilobed right hepatic lobe mass, consistent with recently-diagnosed hepatocellular carcinoma. There appears to have been development of inferior right hepatic lobe capsular rupture with foci of acute intraparenchymal hepatic hemorrhage, and some blood caudal to the right hepatic lobe and also in the pelvis. Consultation with IR for embolization is suggested. 2. There is a 2.5 x 2.7 x 2.8 cm exophytic mass highly suspicious for a renal cell carcinoma involving the inferolateral left kidney. Findings were discussed with Meir Summers MD at 10:27, on 12/20/2017. ED Course/Re-evaluation: The patient presents to the ED with an acute exacerbation of chronic abdominal pain in the setting of recently diagnosed hepatocellular carcinoma. The patient was noted to be anemic with a hematocrit of 25. The patient is anticoagulated with Eliquis for paroxysmal atrial fibrillation. The patient was taken for CT scan of the abdomen pelvis. The patient has hemorrhagic lesions in her liver. There is some evidence of capsular rupture. Patient has been typed and crossed for 2 units of blood. I discussed the case with the primary oncologist Dr. Munguia. The patient will be admitted to the intensive care unit. Dr. Peterson from interventional Radiology has been notified. Dr. Hinkle is also notified of the patient's admission to the hospital. He will consult. Differential Diagnosis: Differential diagnosis considered includes intra-abdominal hemorrhage, pulmonary embolism, bowel obstruction, perforation Critical Care Time: Critical care time exclusive of procedures and exclusive of the PA's time was 55 minutes, performed by myself, Meir Summers MD. The patient presents to the ED with intra-abdominal hemorrhage from a bleeding hepatocellular carcinoma. The patient has been typed and crossed for 2 units of blood. She will be admitted to the intensive care unit. She will require an intervention from interventional Radiology. - Data Points Laboratory Results: Laboratory Results 12/20/17 08:54 12/20/17 08:54 12/20/17 12/20/17 08:54 08:54 WBC 27.28 10^3/uL H 10^3/uL (3.80-9.50) RBC 2.75 10^6/uL L 10^6/uL (4.18-5.33) Hgb 8.0 g/dL L g/dL (12.6-16.3) Hct 25.0 % L % (38.0-47.0) MCV 90.9 fL fL (81.5-99.8) MCH 29.1 pg pg (27.9-34.1) MCHC 32.0 g/dL L g/dL (32.4-36.7) RDW 14.5 % % (11.5-15.2) Plt Count 473 10^3/uL H 10^3/uL (150-400) MPV 10.1 fL fL (8.7-11.7) Neut % (Auto) Not Reported Lymph % (Auto) Not Reported [place] % (Auto) Not Reported Eos % (Auto) Not Reported Baso % (Auto) Not Reported Nucleat RBC Rel Count Not Reported Absolute Neuts (auto) Not Reported Absolute Lymphs (auto) Not Reported Absolute Monos (auto) Not Reported Absolute Eos (auto) Not Reported Absolute Basos (auto) Not Reported Absolute Nucleated RBC Not Reported Immature Gran % Not Reported Seg Neutrophils % 87.0 % % Band Neutrophils % 0 % % Lymphocytes % 7.0 % % Monocytes % 6.0 % % Eosinophils % 0 % % Basophils % 0 % % Metamyelocytes % 0 % % Myelocytes % 0 % % Promyelocytes % 0 % % Blast Cells % 0 % % Immature Gran # Not Reported Absolute Seg Neuts 23.73 10^/uL H 10^/uL (1.70-6.50) Absolute Band Neuts 0.00 10^3/uL 10^3/uL (0.00-0.70) Absolute Lymphocytes 1.91 10^3/uL 10^3/uL (1.00-3.00) Absolute Monocytes 1.64 10^3/uL H 10^3/uL (0.30-0.80) Absolute Eosinophils 0.00 10^3/uL L 10^3/uL (0.03-0.40) Absolute Basophils 0.00 10^3/uL L 10^3/uL (0.02-0.10) Absolute Metamyelocyte 0.00 10^3/mL 10^3/mL (0.00-0.00) Absolute Myelocytes 0.00 10^3/mL 10^3/mL (0.00-0.00) Absolute Promyelocytes 0.00 10^3/uL 10^3/uL (0.00-0.00) Absolute Plasma Cells 0.00 10^3/uL 10^3/uL (0.00-0.00) Absolute Blast Cells 0.00 10^3/uL 10^3/uL (0.00-0.00) Plasma Cells % 0 % % Platelet Estimate INCREASED H (ADEQ) Polychromasia 1+ H Hypochromasia 2+ H Microcytic Cells 1+ H Oval Macrocytes 1+ H Sodium 131 mEq/L L mEq/L (135-145) Potassium 5.0 mEq/L mEq/L (3.5-5.2) Chloride 97 mEq/L mEq/L (97-110) Carbon Dioxide 24 mEq/l mEq/l (22-31) Anion Gap 10 mEq/L mEq/L (8-16) BUN 34 mg/dL H mg/dL (7-23) Creatinine 1.2 mg/dL H mg/dL (0.6-1.0) Estimated GFR 43 Glucose 211 mg/dL H mg/dL (70-100) Calcium 9.1 mg/dL mg/dL (8.5-10.4) Total Bilirubin 0.7 mg/dL mg/dL (0.1-1.4) Conjugated Bilirubin 0.5 mg/dL mg/dL (0.0-0.5) Unconjugated Bilirubin 0.2 mg/dL mg/dL (0.0-1.1) AST 119 IU/L H IU/L (14-46) ALT 89 IU/L H IU/L (9-52) Alkaline Phosphatase 67 IU/L IU/L (38-126) Total Protein 6.1 g/dL L g/dL (6.3-8.2) Albumin 2.7 g/dL L g/dL (3.5-5.0) Lipase 51 IU/L IU/L (23-300) Medications Given: Discontinued Medications Sodium Chloride (Ns) 1,000 mls @ 0 mls/hr IV EDNOW ONE; Wide Open PRN Reason: Protocol Stop: 12/20/17 08:22 Last Admin: 12/20/17 08:25 Dose: 1,000 mls Departure - Departure Disposition: [facility] Acute Clinical Impression: Hepatocellular carcinoma, Subcapsular hemorrhage of liver Condition: Good
[2017-12-20] MEDS ORDERED: IOPAMIDOL (ISOVUE-300) 100 ML BTL ONE (09:39)
[2017-12-20 09:42] LABS: PLATELET COUNT 473 10^3/uL (150-400)
[2017-12-20] MEDS ORDERED: METOCLOPRAMIDE 10 MG TAB PO PRN (11:55)
[2017-12-20] MEDS ORDERED: HYDROmorphONE/DILAUDID 1 MG/ML INJ IVP PRN (11:55)
[2017-12-20] MEDS ORDERED: ONDANSETRON 4 MG/2 ML VIAL IVP PRN (11:55)
[2017-12-20] MEDS ORDERED: ONDANSETRON DISINTEGRATING 4 MG TAB PO PRN (11:55)
[2017-12-20] MEDS ORDERED: METOCLOPRAMIDE 10 MG/2 ML VIAL IVP PRN (11:55)
[2017-12-20] MEDS ORDERED: POLYETHYLENE GLYCOL 3350 17 GM PKT PO PRN (11:58)
[2017-12-20] MEDS ORDERED: BENZONATATE 100 MG CAP PO PRN (11:58)
[2017-12-20] MEDS ORDERED: BISACODYL 10 MG SUPP PR PRN (11:58)
[2017-12-20] MEDS ORDERED: LACTULOSE 20 GM/30 ML UDCUP PO PRN (11:58)
[2017-12-20] MEDS ORDERED: ACETAMINOPHEN 325 MG TAB PO PRN (11:58)
[2017-12-20] MEDS ORDERED: MAGNESIUM HYDROXIDE 30 ML UDCUP PO PRN (11:58)
[2017-12-20] MEDS ORDERED: FLUTICASONE NASAL 120 SPRAYS/16 GM MDI EACHNARE PRN (11:58)
--- NOTE | 2017-12-20 12:28 | ASMTCMCOM ---
CM Note CM Note Notes: Pt presented to the ED with increased abdominal pain, dyspnea, and difficulty ambulating r/t a recent fall (possibly related to increased pain medications, weakness). Pt was admitted 12/05-12/08/17 and during that visit was diagnosed with hepatocellular carcinoma; pt was discharged home with [facility] RN/PT/OT; this CM spoke with Michaela at [facility] and confirmed pt has been receiving visits;see HC assessments notes. Pt followed up with Dr Munguia at [facility] and was supposed to start chemo today. Pt living w/her dtr, Adelina, right now and reportedly sleeping on her couch. Pt is from [place] and was out visiting when she was admitted in November. Pt had been visiting to look at housing options and planning to relocate to [place]. Pt's son lives in [facility]. Exact DC needs unknown, CM to follow. Date Signed: 12/20/2017 12:27 PM Electronically Signed By:Monisha Kasper RN
--- NOTE | 2017-12-20 13:01 | PDGENHP ---
History and Physical - Chief Complaint Acute abdominal pain - History of Present Illness Primary oncologist: Dr. Kailash Munguia HPI: 77-year-old female presents with acute abdominal pain characterized as severe, located in the right upper quadrant and mid epigastric area with associated dyspnea, radiating into the right shoulder. The patient has been experiencing intermittent waves of the pain for the last 1 and half weeks, and she had initially been alleviating symptoms with as needed oral oxycodone. She was seen at [facility] on 12/13, and a fentanyl patch was prescribed, which and alleviated the discomfort. She also had labs at that time which demonstrated stable hemoglobin level, marginal elevation in her creatinine level. Since that time, she has continued to experience intermittent waves of pain, and on the morning of this presentation, at approximately 4:00 a.m., the patient was attempting to ambulate into her kitchen when she experienced sudden onset of severe pain, rendering her unable to ambulate, resulting in weakness in her knees, and this mechanical fall on her face. Her daughter responded to the scene, administered oral oxycodone, and then got her back to the couch where she fell asleep. At approximately 7: 00 a.m., the patient's pain began increasing, she was feeling increasingly weak , and she is brought to the emergency department. Of note, the patient is supposed to be wearing supplemental oxygen with activity, and when she was in leading into the kitchen on the morning of this presentation, she was not wearing oxygen at that time. She has been taking all of her other home medications which include Eliquis and a recent prescription for dexamethasone. She was scheduled to initiate outpatient oral chemotherapy on the day of this presentation, as well as be seen by Interventional Radiology for possible hepatic embolization for her recent diagnosis of hepatocellular carcinoma. History Information - Allergies/Home Medication List Allergies/Adverse Reactions: cephalexin Allergy (Intermediate, Unverified 12/20/17 11:01) Diarrhea ciprofloxacin Allergy (Intermediate, Verified 12/20/17 11:01) Diarrhea Home Medications: Cetirizine [ZyrTEC 10 mg (*)] 10 mg PO HS 12/05/17 [Last Taken 12/19/17] Cholecalciferol Vit D3 [Vitamin D3 2000 units tab (OTC)] 2,000 units PO HS 12/05 [Last Taken 12/19/17] DULoxetine [Cymbalta 60 MG (*)] 60 mg PO HS 12/05/17 [Last Taken 12/19/17] Fluticasone Nasal [Flonase Nasal [place]] 2 sprays NASAL DAILY PRN 12/05/17 [Last Taken Unknown] Losartan Potassium [Cozaar 50 mg (*)] 50 mg PO HS 12/05/17 [Last Taken 12/19/17] Ranitidine HCl [Zantac] 150 mg PO BID 12/05/17 [Last Taken 12/19/17] Simvastatin [Zocor] 20 mg PO HS 12/05/17 [Last Taken 12/19/17] Verapamil ER [Calan SR/ER 240MG (*)] 240 mg PO HS 12/05/17 [Last Taken 12/19/17] Dexamethasone [Decadron 4 MG (*)] 4 mg PO BID 12/20/17 [Last Taken 12/19/17 21: 00] fentaNYL [Duragesic 25 MCG Patch (*)] 25 mcg TD Q72H 12/20/17 [Last Taken ] inFLIXimab [Remicade Inj 100 mg (*)] 400 mg IV .[id number] 12/20/17 [Last Taken Unknown] traZODone [traZODONE 50MG (*)] 50 mg PO HS 12/20/17 [Last Taken 12/19/17] I have personally reviewed and updated: family history, medical history, social history, surgical history - Past Medical History atrial fibrillation (Diagnosis several years ago, had a stress test at that time ) Additional medical history: Rheumatoid arthritis, last dose of Remicade 2017, currently well controlled. Chronic nocturia. Chronic sinus congestion. Hypertension. Hyperlipidemia. Diabetes mellitus type 2. Hepatocellular carcinoma, possible renal cell carcinoma - Surgical History Additional surgical history: Knee surgery, shoulder surgery, recent liver biopsy - Family History Additional family history: Second-degree relative with colon cancer, sibling with testicular cancer - Social History Smoking Status: Former smoker Alcohol Use: None Additional social history: Resides in [place], does not have a formal exercise routine at baseline, currently residing with her daughter locally Review of Systems Review of Systems: ROS: 10pt was reviewed & negative except for what was stated in HPI & below Constitutional: Reports: weakness Respiratory: Reports: shortness of breath Gastrointestinal: Reports: abdominal pain Muscolosketal: Reports: other (Right shoulder pain) Physical Exam Physical Exam: Temp Pulse Resp BP Pulse Ox 36.8 C 73 18 140/56 H 94 12/20/17 08:23 12/20/17 12:23 12/20/17 12:23 12/20/17 12:23 12/20/17 12:23 O2 (L/minute) 2 Constitutional: no apparent distress, obese, uncomfortable, No not in pain ( Moderate) Eyes: PERRL, anicteric sclera, EOMI Ears, Nose, Mouth, Throat: hearing normal, other (Tacky mucous membranes) Cardiovascular: systolic murmur (1/6 at the sternum and apex), irregularly irregular, No tachycardia, No edema Respiratory: reduced air movement (Poor inspiratory air movement comma elicits pain in abdomen), No expiratory wheeze, No inspiratory crackles, No bronchial breath sounds, No respiratory distress Gastrointestinal: normoactive bowel sounds, tenderness (Midepigastric and right upper quadrant), distension (Mild), No guarding Skin: No erythema, No rash Musculoskeletal: other (Crepitus over the right shoulder with extension up to 90 degrees, some tenderness was sedated at the lateral capsule as well as pain with extension greater than 90 degrees) Neurologic: AAOx3, sensation intact bilaterally, No weakness Psychiatric: interacting appropriately, not anxious, not encephalopathic, flat affect, No agitated Lab Data & Imaging Review 12/20/17 08:54 12/20/17 08:54 WBC 27.28 10^3/uL (3.80-9.50) H 12/20/17 08:54 RBC 2.75 10^6/uL (4.18-5.33) L 12/20/17 08:54 Hgb 8.0 g/dL (12.6-16.3) L 12/20/17 08:54 Hct 25.0 % (38.0-47.0) L 12/20/17 08:54 MCV 90.9 fL (81.5-99.8) 12/20/17 08:54 MCH 29.1 pg (27.9-34.1) 12/20/17 08:54 MCHC 32.0 g/dL (32.4-36.7) L 12/20/17 08:54 RDW 14.5 % (11.5-15.2) 12/20/17 08:54 Plt Count 473 10^3/uL (150-400) H 12/20/17 08:54 MPV 10.1 fL (8.7-11.7) 12/20/17 08:54 Neut % (Auto) Not Reported 12/20/17 08:54 Lymph % (Auto) Not Reported 12/20/17 08:54 [place] % (Auto) Not Reported 12/20/17 08:54 Eos % (Auto) Not Reported 12/20/17 08:54 Baso % (Auto) Not Reported 12/20/17 08:54 Nucleat RBC Rel Count Not Reported 12/20/17 08:54 Absolute Neuts (auto) Not Reported 12/20/17 08:54 Absolute Lymphs (auto) Not Reported 12/20/17 08:54 Absolute Monos (auto) Not Reported 12/20/17 08:54 Absolute Eos (auto) Not Reported 12/20/17 08:54 Absolute Basos (auto) Not Reported 12/20/17 08:54 Absolute Nucleated RBC Not Reported 12/20/17 08:54 Immature Gran % Not Reported 12/20/17 08:54 Seg Neutrophils % 87.0 % 12/20/17 08:54 Band Neutrophils % 0 % 12/20/17 08:54 Lymphocytes % 7.0 % 12/20/17 08:54 Monocytes % 6.0 % 12/20/17 08:54 Eosinophils % 0 % 12/20/17 08:54 Basophils % 0 % 12/20/17 08:54 Metamyelocytes % 0 % 12/20/17 08:54 Myelocytes % 0 % 12/20/17 08:54 Promyelocytes % 0 % 12/20/17 08:54 Blast Cells % 0 % 12/20/17 08:54 Immature Gran # Not Reported 12/20/17 08:54 Absolute Seg Neuts 23.73 10^/uL (1.70-6.50) H 12/20/17 08:54 Absolute Band Neuts 0.00 10^3/uL (0.00-0.70) 12/20/17 08:54 Absolute Lymphocytes 1.91 10^3/uL (1.00-3.00) 12/20/17 08:54 Absolute Monocytes 1.64 10^3/uL (0.30-0.80) H 12/20/17 08:54 Absolute Eosinophils 0.00 10^3/uL (0.03-0.40) L 12/20/17 08:54 Absolute Basophils 0.00 10^3/uL (0.02-0.10) L 12/20/17 08:54 Absolute Metamyelocyte 0.00 10^3/mL (0.00-0.00) 12/20/17 08:54 Absolute Myelocytes 0.00 10^3/mL (0.00-0.00) 12/20/17 08:54 Absolute Promyelocytes 0.00 10^3/uL (0.00-0.00) 12/20/17 08:54 Absolute Plasma Cells 0.00 10^3/uL (0.00-0.00) 12/20/17 08:54 Absolute Blast Cells 0.00 10^3/uL (0.00-0.00) 12/20/17 08:54 Plasma Cells % 0 % 12/20/17 08:54 Platelet Estimate INCREASED (ADEQ) H 12/20/17 08:54 Polychromasia 1+ H 12/20/17 08:54 Hypochromasia 2+ H 12/20/17 08:54 Microcytic Cells 1+ H 12/20/17 08:54 Oval Macrocytes 1+ H 12/20/17 08:54 Sodium 131 mEq/L (135-145) L 12/20/17 08:54 Potassium 5.0 mEq/L (3.5-5.2) 12/20/17 08:54 Chloride 97 mEq/L (97-110) 12/20/17 08:54 Carbon Dioxide 24 mEq/l (22-31) 12/20/17 08:54 Anion Gap 10 mEq/L (8-16) 12/20/17 08:54 BUN 34 mg/dL (7-23) H 12/20/17 08:54 Creatinine 1.2 mg/dL (0.6-1.0) H 12/20/17 08:54 Estimated GFR 43 12/20/17 08:54 Glucose 211 mg/dL (70-100) H 12/20/17 08:54 Calcium 9.1 mg/dL (8.5-10.4) 12/20/17 08:54 Total Bilirubin 0.7 mg/dL (0.1-1.4) 12/20/17 08:54 Conjugated Bilirubin 0.5 mg/dL (0.0-0.5) 12/20/17 08:54 Unconjugated Bilirubin 0.2 mg/dL (0.0-1.1) 12/20/17 08:54 AST 119 IU/L (14-46) H 12/20/17 08:54 ALT 89 IU/L (9-52) H 12/20/17 08:54 Alkaline Phosphatase 67 IU/L (38-126) 12/20/17 08:54 Total Protein 6.1 g/dL (6.3-8.2) L 12/20/17 08:54 Albumin 2.7 g/dL (3.5-5.0) L 12/20/17 08:54 Lipase 51 IU/L (23-300) 12/20/17 08:54 Patient ABO/Rh O POSITIVE 12/20/17 12:08 Antibody Screen NEGATIVE 12/20/17 12:08 Crossmatch IS Only See Detail 12/20/17 12:08 Visualized and Interpreted imaging results: Yes Interpretation: Abdominal CT demonstrating right liver lobe mass with capsular rupture and bleed as well as stable left kidney 3 x 3 cm mass Assessment & Plan Assessment: 77-year-old female presents with acute abdominal pain secondary to acute intra hepatic bleeding Plan: 1. Acute abdominal pain. Secondary to capsular rupture and intrahepatic bleeding, most likely contributing to some of her pain radiating into her right chest -supportive care with IV and oral Dilaudid, continue fentanyl patch -placed on bowel regiment to reduce any additional discomfort from constipation -incentive spirometer to reduce atelectasis 2. Acute intra hepatic bleeding. CT scan demonstrating capsular rupture with bleeding, likely contributing to pain, likely causing worsened anemia, likely secondary to the coagulopathy from circulating affects of Eliquis as well as recent liver biopsy and liver mass predisposed bleeding -cause and placed to interventional radiology, Dr. Florina Peterson, to consult for possible arterial embolization -treat bleeding supportively as outlined below -hold on chemotherapy -last dosage of Eliquis was 5/6 p.m. 3. Hepatocellular carcinoma. Reviewed outside records including recent pathology results, confirming HCC -plan had been to initiate chemotherapy today as well as mass embolization, both of which will be on hold given the above bleeding -oncology has been notified by the emergency department 4. Acute blood loss anemia. Reviewed outside records including 12/13/2017 hemoglobin level of 12.7 with today's hemoglobin level of 8.0, secondary to intrahepatic bleeding as outlined above -stat type and screen -transfuse 2 units packed red blood cells given suspicion of ongoing blood loss -monitor closely in step-down unit 5. Acute hyponatremia. Most likely secondary to hypovolemia in the setting of above, continue to monitor and give high solid containing fluid including blood and normal saline up until transfusion 6. Acute kidney injury. Evidenced by a creatinine of 1.2, baseline creatinine less than 1, appeared been developing over the past week despite good oral intake of solids and liquids, suspect this may have something to do with her kidney mass as well as blood loss resulting in hypovolemia -give normal saline, then blood product, then recheck creatinine level in a.m. And monitor urine output 7. Transaminitis. Secondary to HCC, continue monitor 8. Atelectasis. Acute, continue incentive spirometer 9. Permanent atrial fibrillation. Currently holding Eliquis, will need to be discontinued in the short term, if there is consideration for resumption, would recommend lower dosage at 2.5 twice daily, given possible ongoing kidney impairment anticipated in the setting of renal cell carcinoma Diet. NPO while we determine next procedure Prophylaxis. High risk patient, currently off of Eliquis, SCDs Code. Full Disposition. Anticipated discharge uncertain, anticipated length stay is greater than 48 hr for reasonable medical necessity including acute intrahepatic bleeding with resultant blood loss anemia requiring surgical intervention with comorbid conditions including hepatocellular carcinoma, hyponatremia, acute kidney injury, placing patient at high risk for worsening morbidity and/or mortality, rendering her critically ill, spent 40 min of critical care time with this patient, daughter, coordinating care with Dr. Summers, Dr. Peterson, Dr. Blanco, specifically addressing her blood loss anemia intrahepatic bleeding.
[2017-12-20] MEDS: fentaNYL 25 MCG PATCH TD SCH (13:24)
[2017-12-20] MEDS: NS 1,000 ML IV SCH (13:26)
[2017-12-20] MEDS: HYDROmorphone HCL/NS 0.5 MG/ML SYR IVP PRN (13:53)
--- NOTE | 2017-12-20 13:59 | GCON ---
[f rep st] CONSULTATION COMMUNITY SERVICE OFFICER COORDINATOR CONSULTATION REASON FOR ADMISSION: Abdominal pain, acute intrahepatic bleeding. HISTORY OF PRESENT ILLNESS: The patient is a very pleasant 77-year-old white female with a past medi andre history including a recently diagnosed hepatocellular carcinoma. She also has rheumatoid arthrit is, hypertension, hyperlipidemia, diabetes, and possible renal cell carcinoma. She was recently disc harged from the hospital, returned with severe abdominal pain. In discussion with the patient, she s tates with the exception of her pain, she is doing quite well. She admits to some breathlessness but this is improved with oxygen. She has had no fever or night sweats. PAST MEDICAL HISTORY: Again, significant for rheumatoid arthritis, hypertension, hyperlipidemia, hep atocellular carcinoma, possible renal cell carcinoma. PAST SURGERIES: A knee surgery. Recent liver biopsy. FAMILY HISTORY: Significant for colon cancer. SOCIAL HISTORY: Previous tobacco use, none for 40 years. Infrequent alcohol use. 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 She is , has 3 children. She is currently transitioning to moving [facility] to [place]. CURRENT MEDICATIONS: Include trazodone, Remicade, Duragesic, Decadron, calan SR, Zocor, Zantac, Coza ar, Flonase, Cymbalta, vitamin D3, Zyrtec, Eliquis, dexamethasone. ALLERGIES: Include Keflex and ciprofloxacin. PHYSICAL EXAM: VITAL SIGNS: Blood pressure 122/55, pulse 71, respirations 16, temperature 36.7, oxy gen saturation 98% on 2 L nasal cannula. GENERAL: She is a mildly overweight but very pleasant, eld erly white female who is resting comfortably, in mild distress. HEENT: Eyes PERRL, EOMI. Throat sh ows no erythema or tonsillar hypertrophy. NECK: Supple. There is no cervical adenopathy. HEART: Regular rate and rhythm with a 2/6 systolic murmur, left sternal border without radiation. LUNGS: D iminished breath sounds. No wheeze. ABDOMEN: Distended, tender. Bowel sounds are diminished. EXT REMITIES: No clubbing, cyanosis, or edema. LABORATORIES: White count 27.2, hemoglobin of 8, hematocrit 25, platelet count is 473. Sodium 131, potassium 5.0, chloride 97, CO2 24, BUN 34, creatinine 1.2, glucose is 211. AST is mildly elevated a t 119, ALT 89, total protein 6.1. CT scan of the abdomen reveals bilobed right hepatic mass. There is an inferior right hepatic lobe capsular rupture with focus of intraparenchymal hepatic hemorrhage. There is a mass in the inferolateral left kidney. IMPRESSION: 1. Abdominal pain, likely secondary to capsular stretch. 2. Hepatocellular carcinoma. This is a recent diagnosis. 3. Acute intrahepatic bleeding, hemoglobin and hematocrit have dropped precipitously since discharge . She is currently on Eliquis and had a recent liver biopsy. 4. Acute blood loss anemia. 5. Hyponatremia. 6. Kidney mass. 7. Elevated liver function tests. 8. History of atrial fibrillation. RECOMMENDATIONS: 1. Agree with n.p.o. 2. Agree with current transfusion. 3. Agree with consultation of Interventional Radiology as well as General Surgery. 4. Adequate pain control. 5. DVT and PE prophylaxis, holding anticoagulation for now. 6. Stress ulcer prophylaxis. 7. Close cardiovascular monitoring. 8. Case discussed with the hospitalist. /[id number]/MODL
--- NOTE | 2017-12-20 16:20 | PDMN ---
Medical Necessity Medical necessity: est los>2mn for acute intrahepatic bleeding with acute blood loss anemia, abd pain, RADHA; admit for surgical intervention, monitor in ICU/SDU , transfuse prn, IVF, IV pain meds; comorbid hepatocellular carcinoma, permanent afib; per order and H&P
[2017-12-20] MEDS: HYDROmorphONE/DILAUDID 2 MG TAB PO PRN ×2 (16:40→21:24)
[2017-12-20] MEDS: LIDOCAINE 4%/MENTHOL 1% PATCH TD SCH (18:22)
--- NOTE | 2017-12-20 18:30 | SOAPPROG ---
MARY ELLEN Progress Note Assessment/Plan: Assessment: Large RT subcapsular HCC with spontaneous bleed. Discussed options with patient and her daughter today extensively. Even off of Eliquis, I'm concerned that the rebleeding risk is moderate, given size and location of tumor. However, would like to offer some kind of cancer treatment to this patient. Partial bland embolization may offer some hemostasis, but leave Y90 option open. Plan: 1. [place]wey embo tomorrow. This will help with any shunting (often seen in HCC) anyways. 2. Will do mapping angiogram and MAA shunt calculation at same time. 3. Likely will have more pain with embolization. There is also moderate risk of capsular rupture given size and location of tumor. That's why Y90 is a better option for this patient. 4. Once recovered from this event, will bring back, in 2-4 weeks, for Y90 embolization. 12/20/17 18:26 Subjective: Patient very sleepy from pain meds. Objective: Vital Signs Temp Pulse Resp BP Pulse Ox 36.5 C 80 15 133/61 H 98 12/20/17 17:08 12/20/17 17:08 12/20/17 17:08 12/20/17 17:08 12/20/17 17:08 12/19/17 12/20/17 12/21/17 05:59 05:59 05:59 Intake Total 1805 Output Total 350 Balance 1455 ICD10 Worksheet Patient Problems: Problems Problem Status Onset Hepatocellular carcinoma Acute Subcapsular hemorrhage of liver Acute Dyspnea Acute Hypoxia Acute Leukocytosis Acute
[2017-12-20] MEDS: FAMOTIDINE 20 MG TAB PO SCH (20:20)
[2017-12-20] MEDS: DULoxetine 60 MG CAP PO SCH (20:20)
[2017-12-20] MEDS: CHOLECALCIFEROL VIT D3 2,000 UNITS TAB/CAP PO SCH (20:20)
[2017-12-20] MEDS: SENNOSIDES/DOCUSATE SODIUM TAB PO SCH (20:20)
[2017-12-20] MEDS: DEXAMETHASONE 4 MG TAB PO SCH (20:20)
[2017-12-20] MEDS: CETIRIZINE 10 MG TAB PO SCH (20:20)
[2017-12-20] MEDS: traZODone 50 MG TAB PO SCH (20:20)
[2017-12-20 20:48] LABS: INR 1.37 (0.83-1.16)
[2017-12-20] MEDS: PATCH REMOVAL 1 EA PATCH TD SCH (22:21)
[2017-12-21] MEDS: NS 1,000 ML IV SCH ×2 (01:06→09:53)
[2017-12-21] MEDS: HYDROmorphone HCL/NS 0.5 MG/ML SYR IVP PRN ×4 (01:18→23:32)
[2017-12-21 06:51] LABS: PLATELET COUNT 329 10^3/uL (150-400)
--- NOTE | 2017-12-21 08:39 | PDINTPN ---
Pool Lifeguard Progress Note Assessment/Plan: Assessment/plan: * Hepatocellular carcinoma * Acute intrahepatic hemorrhage-going to IR today. * Acute blood-loss anemia-currently stable -follow H and H closely and transfuse appropriately * Kidney mass-likely renal cell carcinoma * Atrial fibrillation-heart rate stable * Chronic anticoagulation with Eliquis * PT/OT * NPO for now Subjective: Resting comfortably. Pain is well controlled. Objective: Vital Signs Temp Pulse Resp BP Pulse Ox 36.6 C 75 19 159/65 H 98 12/21/17 08:00 12/21/17 08:00 12/21/17 08:00 12/21/17 08:00 12/21/17 08:00 Laboratory Results 12/21/17 05:45 12/21/17 05:45 12/20/17 12/21/17 12/22/17 05:59 05:59 05:59 Intake Total 3155 Output Total 350 175 Balance 2805 -175 PT 17.0 SEC (12.0-15.0) H 12/20/17 20:30 INR 1.37 (0.83-1.16) H 12/20/17 20:30 - Time Spent With Patient Time Spent With Patient: 25 min of time spent with patient, over 1/2 involved with coordination of care counseling Physical Exam - Physical Exam General Appearance: alert, no apparent distress EENT: PERRL/EOMI, normal ENT inspection Neck: non-tender, full range of motion, supple, normal inspection Respiratory: chest non-tender, lungs clear Cardiac/Chest: normal peripheral pulses, regular rate, rhythm, systolic murmur Abdomen: soft, No non-tender Pelvic Exam: deferred Rectal: deferred Skin: normal color, warm/dry Extremities: normal range of motion, non-tender, normal inspection, normal capillary refill Neuro/Psych: no motor/sensory deficits, alert, normal mood/affect, oriented x 3 ICD10 Worksheet Patient Problems: Problems Problem Status Onset Hepatocellular carcinoma Acute Subcapsular hemorrhage of liver Acute Dyspnea Acute Hypoxia Acute Leukocytosis Acute
[2017-12-21] MEDS ORDERED: MIDAZOLAM 2 MG/2 ML VIAL ONE (09:17)
[2017-12-21] MEDS ORDERED: fentaNYL 100 MCG/2 ML INJ ONE (09:17)
[2017-12-21] MEDS ORDERED: MEPERIDINE 25 MG/ML SYR IVP PRN (09:19)
[2017-12-21] MEDS ORDERED: MIDAZOLAM 2 MG/2 ML VIAL IVP PRN (09:19)
[2017-12-21] MEDS ORDERED: FLUMAZENIL 0.5 MG/5 ML MDV IVP PRN (09:19)
[2017-12-21] MEDS ORDERED: fentaNYL 100 MCG/2 ML INJ IVP PRN (09:19)
[2017-12-21] MEDS ORDERED: HEPARIN 10,000 UNIT/10 ML MDV (1,000 UNIT/ML) IVP PRN (09:19)
[2017-12-21] MEDS ORDERED: NALOXONE HCL 0.4 MG/ML INJ IVP PRN (09:19)
[2017-12-21] MEDS ORDERED: PROTAMINE SULFATE 50 MG/5 ML VIAL IVP PRN (09:19)
[2017-12-21] MEDS ORDERED: GLUCAGON HCL 1 MG VIAL IVP PRN (09:19)
[2017-12-21] MEDS ORDERED: ALTEPLASE 2 MG VIAL IVP PRN (09:19)
[2017-12-21] MEDS ORDERED: NS 1,000 ML IV SCH (09:30)
--- NOTE | 2017-12-21 09:41 | PDPROPOC ---
Sedation Plan of Care Sedation Plan of Care: vital signs stable, mental status noted, patient educated of risks, benefits, alternatives, patient can tolerate sedation ASA Classification: ASA 3 Planned drugs: fentanyl, midazolam Mallampati Score: Class 2 Mallampati Reference Image: Patient passed 3-3-2 rule?: Yes
[2017-12-21] MEDS ORDERED: IOPAMIDOL (ISOVUE-370) 150 ML BTL IV ONE (10:13)
[2017-12-21] MEDS ORDERED: oxyCODONE IR 5 MG TAB PO PRN (11:29)
--- NOTE | 2017-12-21 11:33 | PDRADPN ---
Radiology Procedure Note Date of Procedure: 12/21/17 Radiologist: Florina Peterson Anesthesia: IV Sedation Pre-op Diagnosis: HCC Post-op Diagnosis: SAME Indication: SPONTANEOUS BLEED Procedure: HCC EMBOLIZATION; Y90 MAPPING Finding(s): BLAND EMBOLIZATION DONE TO RT LIVER HCC. MAA INJECTED FOR SHUNT CALCULATION. NO A-V SHUNT. SINGLE TUMOR WITH INTERNAL BLUSH, BUT NO ACTIVE EXTRAVESATION. Inf/Abcess present in the surg proc area at time of surgery?: No Total fluids administered: 200CC CONTRAST Complications: NONE IMMEDIATELY.
[2017-12-21] MEDS ORDERED: LIDOCAINE 1% 300 MG/30 ML SDV ONE (11:39)
[2017-12-21] MEDS ORDERED: IOPAMIDOL (ISOVUE-300) 100 ML BTL ONE (11:39)
[2017-12-21] MEDS: FAMOTIDINE 20 MG TAB PO SCH ×2 (12:05→20:18)
[2017-12-21] MEDS: DEXAMETHASONE 4 MG TAB PO SCH ×2 (12:05→20:18)
[2017-12-21] MEDS: SENNOSIDES/DOCUSATE SODIUM TAB PO SCH ×2 (12:05→20:18)
[2017-12-21] MEDS: LIDOCAINE 4%/MENTHOL 1% PATCH TD SCH (12:05)
--- NOTE | 2017-12-21 13:31 | SOAPPROG ---
MARY ELLEN Progress Note Assessment/Plan: Assessment: Large RT subcapsular HCC with spontaneous bleed. Discussed options with patient and her daughter today extensively. Even off of Eliquis, I'm concerned that the rebleeding risk is moderate, given size and location of tumor. However, would like to offer some kind of cancer treatment to this patient. Partial bland embolization may offer some hemostasis, but leave Y90 option open. Plan: 1. Parker embo tomorrow. This will help with any shunting (often seen in HCC) anyways. 2. Will do mapping angiogram and MAA shunt calculation at same time. 3. Likely will have more pain with embolization. There is also moderate risk of capsular rupture given size and location of tumor. That's why Y90 is a better option for this patient. 4. Once recovered from this event, will bring back, in 2-4 weeks, for Y90 embolization. 12/20/17 18:26 12/21/17 13:29 No pain post procedure at this time. Will monitor Cr and LFT. Discussed procedure with patient and daughter at length. Likely can't do bone scan until Thurs due to cross reaction with today's MAA, however, can do as outpatient if needed. IR will call patient about Y90 treatment apt. Subjective: NO PAIN. Objective: Vital Signs Temp Pulse Resp BP Pulse Ox 36.6 C 68 11 L 171/74 H 94 12/21/17 08:00 12/21/17 12:21 12/21/17 12:21 12/21/17 12:21 12/21/17 12:21 Laboratory Results 12/21/17 05:45 12/21/17 05:45 12/20/17 12/21/17 12/22/17 05:59 05:59 05:59 Intake Total 3155 Output Total 350 175 Balance 2805 -175 PT 17.0 SEC (12.0-15.0) H 12/20/17 20:30 INR 1.37 (0.83-1.16) H 12/20/17 20:30 RT GROIN WITHOUT HEMATOMA. MENTATION MUCH MORE CLEAR NOW THAT SHE HASN'T HAD PAIN MEDS FOR AWHILE ICD10 Worksheet Patient Problems: Problems Problem Status Onset Hepatocellular carcinoma Acute Subcapsular hemorrhage of liver Acute Dyspnea Acute Hypoxia Acute Leukocytosis Acute
[2017-12-21] MEDS: HYDROmorphONE/DILAUDID 2 MG TAB PO PRN (14:47)
[2017-12-21] MEDS: ENALAPRILAT DIHYDRATE 1.25 MG/ML VIAL IV PRN (16:53)
--- NOTE | 2017-12-21 17:02 | SOAPPROG ---
SOAP Progress Note Assessment/Plan: Assessment: 77 FEMALE WITH SPONTANEOUS BLEED FROM RT HEPATIC LOBE TUMOR/ HCT STABLE/ PT ON ELIQUIS VS STABLE ABD SOFT BUT TENDER RUQ CHEST CLEAR COR RR IMP: HCC WITH SPONTANEOUS BLEED, STABLE Plan:STOP ANTICOAGULATION/ CONSIDER EMBOLIZATION/ TUMOR IS SURGICALLY RESECTABLE 12/21/17 16:59 Objective: Vital Signs Temp Pulse Resp BP Pulse Ox 36.7 C 79 20 186/73 H 96 12/21/17 16:00 12/21/17 16:00 12/21/17 16:00 12/21/17 16:53 12/21/17 16:00 Laboratory Results 12/21/17 05:45 12/21/17 05:45 12/20/17 12/21/17 12/22/17 05:59 05:59 05:59 Intake Total 3155 345 Output Total 350 700 Balance 2805 -355 PT 17.0 SEC (12.0-15.0) H 12/20/17 20:30 INR 1.37 (0.83-1.16) H 12/20/17 20:30 ICD10 Worksheet Patient Problems: Problems Problem Status Onset Hepatocellular carcinoma Acute Subcapsular hemorrhage of liver Acute Dyspnea Acute Hypoxia Acute Leukocytosis Acute
--- NOTE | 2017-12-21 18:42 | HOSPPROG ---
Hospitalist Progress Note Assessment/Plan: Assessment: 77-year-old female presents with acute abdominal pain secondary to acute intra- hepatic bleeding resulting in acute blood loss anemia 2/2 spontaneous HCC bleed in setting of eliquis Plan: 1. Acute abdominal pain. Secondary to capsular rupture and intrahepatic bleeding, pain currently well managed -d/w Dr. Peterson, she advises that after embolization pain usually increases, recommend getting ahead of pain w/ PRN dilaudid PO and IV for breakthrough 2. Acute intra-hepatic bleeding. Spontaneous 2/2 HCC w/ eliquis, patient did not have e/o bleed following her liver biopsy, but suspect she developed it spontaneously on the date of presentation -POD#0 partial bland embolization by Dr. Peterson -monitor o/n for worsening pain -she will be at risk for recurrent, spontaneous bleeding, so patient's pain symptoms should be closely monitored as outpatient and low threshold for repeat CBC/imaging 3. Hepatocellular carcinoma. D/w Dr. Arredondo, plan is for Nexavar (which is PO, covers both HCC and RCC) to be delivered to patient's home via specialty mail pharmacy, and she should start later this week -plan for concomitant XRT, to be arranged by primary oncologist Dr. Munguia -recommended that patient reschedule her 01/06 appt for an earlier one, since recurrent bleeding is an immediate concern and the sooner she is initiated on her therapies, the better; Dr. Arredondo or Gagandeep will see patient/family tomorrow AM to assist coordinate outpt f/u -Dr. Peterson's office will contact patient to schedule Y90, which cannot occur for 2 -3 weeks, since she just received partial bland embolization -since patient received IR procedure today, she cannot get nuc med bone scan tomorrow, so it should be rescheduled as outpatient for Th or Wed this week 4. Acute blood loss anemia. Stabilized s/p 2u PRBC, Hgb 9.2 today, repeat level in AM 5. Acute hyponatremia. Most likely secondary to hypovolemia in the setting of above, resolved s/p IVF/blood 6. Acute kidney injury. Evidenced by a creatinine of 1.2, resolved s/p IVF/ blood 7. Transaminitis. Secondary to HCC, continue monitor 8. Atelectasis. Acute, continue incentive spirometer 9. Permanent atrial fibrillation. Currently holding Eliquis, will need to be discontinued in the short term, if there is consideration for resumption, would recommend lower dosage at 2.5 twice daily, but would recommend she remain off of anticoagulation/anti-platelet for a couple weeks to demonstrate stability Diet. Regular Prophylaxis. High risk patient, currently off of Eliquis, SCDs Code. Full Disposition. Anticipated discharge 12/22, pending stabilization of above. High-level of medical complexity, high risk patient for worsening morbidity secondary to the issues as outlined above. Subjective: patient reports mild pain in mid-epigastric area developing Objective: Vital Signs Temp Pulse Resp BP Pulse Ox 36.7 C 79 20 186/73 H 96 12/21/17 16:00 12/21/17 16:00 12/21/17 16:00 12/21/17 16:53 12/21/17 16:00 Laboratory Results 12/21/17 05:45 12/21/17 05:45 12/20/17 12/21/17 12/22/17 05:59 05:59 05:59 Intake Total 3155 695 Output Total 350 700 Balance 2805 -5 PT 17.0 SEC (12.0-15.0) H 12/20/17 20:30 INR 1.37 (0.83-1.16) H 12/20/17 20:30 - Pending Discharge Pending Discharge Within 24 Hours: Yes Pending Discharge Date: 12/22/17 Pending Discharge Time: 11:00 - Physical Exam Constitutional: no apparent distress, uncomfortable, No not in pain (mild), No chronically ill appearing Cardiovascular: regular rate and rhythym, systolic murmur (I/ at sternum and apex), No tachycardia, No edema Respiratory: no respiratory distress, no rales or rhonchi, clear to auscultation Gastrointestinal: normoactive bowel sounds, tenderness (mid-epigastric and RUQ) , No guarding, No distension Neurologic: AAOx3, sensation intact bilaterally, No facial droop Psychiatric: interacting appropriately, not anxious, not encephalopathic, thought process linear ICD10 Worksheet Patient Problems: Problems Problem Status Onset Dyspnea Acute Hypoxia Acute Leukocytosis Acute Hepatocellular carcinoma Acute Subcapsular hemorrhage of liver Acute
[2017-12-21] MEDS: CETIRIZINE 10 MG TAB PO SCH (20:18)
[2017-12-21] MEDS: traZODone 50 MG TAB PO SCH (20:18)
[2017-12-21] MEDS: DULoxetine 60 MG CAP PO SCH (20:18)
[2017-12-21] MEDS: VERAPAMIL ER 240 MG TAB PO SCH (20:18)
[2017-12-21] MEDS: CHOLECALCIFEROL VIT D3 2,000 UNITS TAB/CAP PO SCH (20:18)
[2017-12-21] MEDS ORDERED: LOSARTAN POTASSIUM 50 MG TAB PO SCH (21:00)
[2017-12-21] MEDS: PATCH REMOVAL 1 EA PATCH TD SCH (21:25)
[2017-12-22] MEDS: hydrALAZINE 20 MG/ML VIAL IVP PRN (03:26)
[2017-12-22] MEDS: HYDROmorphone HCL/NS 0.5 MG/ML SYR IVP PRN ×2 (03:29→05:55)
[2017-12-22 07:12] LABS: PLATELET COUNT 385 10^3/uL (150-400)
[2017-12-22] MEDS: DEXAMETHASONE 4 MG TAB PO SCH ×2 (08:32→20:07)
[2017-12-22] MEDS: SENNOSIDES/DOCUSATE SODIUM TAB PO SCH ×2 (08:32→20:06)
[2017-12-22] MEDS: HYDROmorphONE/DILAUDID 2 MG TAB PO PRN ×2 (08:33→14:06)
[2017-12-22] MEDS: LIDOCAINE 4%/MENTHOL 1% PATCH TD SCH (08:33)
[2017-12-22] MEDS: FAMOTIDINE 20 MG TAB PO SCH ×2 (08:33→20:07)
--- NOTE | 2017-12-22 08:54 | PDINTPN ---
Dairy Chemist Progress Note Assessment/Plan: Assessment/plan: * Hepatocellular carcinoma * Acute intrahepatic hemorrhage-status post embolization per IR yesterday. * Acute blood-loss anemia-currently stable -follow H and H closely and transfuse appropriately * Pain-reasonably well controlled * Kidney mass-likely renal cell carcinoma * Atrial fibrillation-heart rate stable * Chronic anticoagulation with Eliquis * PT/OT * Disposition-may be ready for transfer to floor 12/22/17 08:53 Subjective: Resting comfortably in bed. Pain is described at a 01/23. Objective: Vital Signs Temp Pulse Resp BP Pulse Ox 36.6 C 83 17 179/61 H 97 12/22/17 03:12 12/22/17 04:00 12/22/17 04:00 12/22/17 04:00 12/22/17 04:00 Laboratory Results 12/22/17 05:45 12/22/17 05:45 12/21/17 12/22/17 12/23/17 05:59 05:59 05:59 Intake Total 3155 1195 Output Total 350 700 Balance 2805 495 PT 17.0 SEC (12.0-15.0) H 12/20/17 20:30 INR 1.37 (0.83-1.16) H 12/20/17 20:30 Laboratory Results 12/22/17 05:45 12/22/17 05:45 12/22/17 05:45 Calcium 9.5 mg/dL D mg/dL (8.5 - 10.4) Total Bilirubin 0.9 mg/dL mg/dL (0.1 - 1.4) AST 148 IU/L H IU/L (14 - 46) ALT 118 IU/L H IU/L (9 - 52) Alkaline Phosphatase 81 IU/L IU/L (38 - 126) Total Protein 6.6 g/dL g/dL (6.3 - 8.2) Albumin 2.9 g/dL L g/dL (3.5 - 5.0) - Time Spent With Patient Time Spent With Patient: 25 min of time spent with patient, over 1/2 involved with coordination of care or counseling. Case discussed with nursing Physical Exam - Physical Exam General Appearance: alert, no apparent distress EENT: PERRL/EOMI, normal ENT inspection Neck: non-tender, full range of motion Respiratory: chest non-tender, lungs clear, normal breath sounds Cardiac/Chest: normal peripheral pulses, regular rate, rhythm Abdomen: normal bowel sounds, non-tender, soft Pelvic Exam: deferred Rectal: deferred Skin: normal color, warm/dry Extremities: normal range of motion, non-tender, normal inspection, normal capillary refill Neuro/Psych: alert, oriented x 3 ICD10 Worksheet Patient Problems: Problems Problem Status Onset Hepatocellular carcinoma Acute Subcapsular hemorrhage of liver Acute Dyspnea Acute Hypoxia Acute Leukocytosis Acute
[2017-12-22] MEDS ORDERED: LOSARTAN POTASSIUM 50 MG TAB PO ONE (09:43)
--- NOTE | 2017-12-22 09:43 | HOSPPROG ---
Hospitalist Progress Note Assessment/Plan: Hospitalist Progress Note Assessment/Plan: 77-year-old female presents with acute abdominal pain secondary to acute intra- hepatic bleeding resulting in acute blood loss anemia 2/2 spontaneous HCC bleed in setting of eliquis Acute abdominal pain. Secondary to capsular rupture and intrahepatic bleeding, s/p embolizatoin -PRN dilaudid PO and IV for breakthrough Acute intra-hepatic bleeding. Spontaneous 2/2 HCC w/ eliquis -POD #1 partial bland embolization by Dr. Peterson -at risk for recurrent, spontaneous bleeding, monitor closely, low threshold for repeat CBC/imaging Hepatocellular carcinoma. Per onc, plan is for Nexavar (which is PO, covers both HCC and RCC) to be delivered to patient's home via specialty mail pharmacy , and she should start later this week -plan for concomitant XRT, to be arranged by primary oncologist Dr. Munguia -recommended that patient reschedule her 01/06 appt for an earlier one, since recurrent bleeding is an immediate concern and the sooner she is initiated on her therapies, the better; Dr. Arredondo or Gagandeep to assist with coordination of outpt f/u -Dr. Peterson's office will contact patient to schedule Y90, which cannot occur for 2 -3 weeks, since she just received partial bland embolization -reschedule bone scan for later this week Acute blood loss anemia. Stabilized s/p 2u PRBC, Hgb 9.2 today, repeat level in AM HTN. Held home Rx 5/7 PM given blood loss, now w/ rising BP and risk for inducing bleed if > 180 -increase Losartan to 100 mg daily -PRN hydralazine and enalapril IV Leukocytosis. WBC's up and down, up today to 27K. Unclear if stress response. No obvious signs of infection and afebrile. -monitor closely, consider rpt CT abd Acute hyponatremia. Most likely secondary to hypovolemia in the setting of above, resolved s/p IVF/blood Acute kidney injury. Evidenced by a creatinine of 1.2, resolved s/p IVF/blood Transaminitis. Secondary to HCC, continue monitor Atelectasis. Acute, continue incentive spirometer Gale intertrigo - start nystatin cream Sacral pressure injury - wound care to eval / treat Permanent atrial fibrillation. Currently holding Eliquis and cont to hold for minimum of 2 weeks. Consider resuming at lower dose with RADHA when deemed stable. Diet. Regular Prophylaxis. High risk patient, currently off of Eliquis, SCDs Code. Full Disposition. ADD uncertain, cont inpt, transfer to med/surg 1N High-level of medical complexity, high risk patient for worsening morbidity secondary to the issues as outlined above. Subjective: Pt doing ok. Pain controlled, no fevers overnight. C/O rash under breasts and on bed sore on sacrum. Eating ok. On baseline O2. Objective: Vital Signs Temp Pulse Resp BP Pulse Ox 36.6 C 79 14 172/72 H 97 12/22/17 03:12 12/22/17 08:00 12/22/17 08:00 12/22/17 08:00 12/22/17 08:00 Laboratory Results 12/22/17 05:45 12/22/17 05:45 12/21/17 12/22/17 12/23/17 05:59 05:59 05:59 Intake Total 3155 1195 Output Total 350 700 Balance 2805 495 PT 17.0 SEC (12.0-15.0) H 12/20/17 20:30 INR 1.37 (0.83-1.16) H 12/20/17 20:30 - Physical Exam Constitutional: no apparent distress Eyes: PERRL Ears, Nose, Mouth, Throat: moist mucous membranes Cardiovascular: regular rate and rhythym Respiratory: no respiratory distress, reduced air movement Gastrointestinal: normoactive bowel sounds, soft, non-tender abdomen Skin: other (erythema c/w gale intertrigo under b/l breasts) Musculoskeletal: full muscle strength Neurologic: AAOx3 Psychiatric: interacting appropriately ICD10 Worksheet Patient Problems: Problems Problem Status Onset Hepatocellular carcinoma Acute Subcapsular hemorrhage of liver Acute Dyspnea Acute Hypoxia Acute Leukocytosis Acute
--- NOTE | 2017-12-22 10:33 | WOCRNPDOC ---
WOCRN Advanced Assessment Note - Skin Integrity Problem, Advanced Assess Bilateral Breast Dressing Type: Open to Air Skin Integrity Problem Comment: Partial thickness tissue loss with intertrigenous dermatitis with active fungal involvment. Recommend interdry sheets Do not use antifungal powder/creams with interdry sheets as they deactivate the silver and reduce the wicking ability of the fabric. If antifungal powder is ordered please use pillowcases to keep skin off skin. Wound care will sign off. Coccyx Dressing Type: Open to Air Faisal Wound Tissue: Blanching, Erythema Skin Integrity Problem Comment: No pressure injury. Perianal Incont Assoc Dermatitis Dressing Type: Open to Air Skin Integrity Problem Comment: Moderate IAD around anus with partial thickness tissue loss. Calazime to area Q cleaning. Clean with faisal wipes. Wound care will sign off. LURDES Castillo in room.
--- NOTE | 2017-12-22 10:52 | SOAPPROG ---
SOAP Progress Note Assessment/Plan: Assessment: 77 FEMALE WITH SPONTANEOUS BLEED FROM RT HEPATIC LOBE TUMOR/ HCT STABLE/ PT ON ELIQUIS VS STABLE ABD SOFT BUT TENDER RUQ CHEST CLEAR COR RR IMP: HCC WITH SPONTANEOUS BLEED, STABLE Plan:STOP ANTICOAGULATION/ CONSIDER EMBOLIZATION/ TUMOR IS SURGICALLY RESECTABLE 12/21/17 16:59 12/22/17 10:51 stable after IR embolization/ still some pain/ hct stable/ plan per oncology Objective: Vital Signs Temp Pulse Resp BP Pulse Ox 36.6 C 79 14 172/72 H 97 12/22/17 03:12 12/22/17 08:00 12/22/17 08:00 12/22/17 08:00 12/22/17 08:00 Laboratory Results 12/22/17 05:45 12/22/17 05:45 12/21/17 12/22/17 12/23/17 05:59 05:59 05:59 Intake Total 3155 1195 Output Total 350 700 Balance 2805 495 PT 17.0 SEC (12.0-15.0) H 12/20/17 20:30 INR 1.37 (0.83-1.16) H 12/20/17 20:30 ICD10 Worksheet Patient Problems: Problems Problem Status Onset Hepatocellular carcinoma Acute Subcapsular hemorrhage of liver Acute Dyspnea Acute Hypoxia Acute Leukocytosis Acute
--- NOTE | 2017-12-22 10:53 | SOAPPROG ---
SOAP Progress Note Assessment/Plan: Assessment: 77 FEMALE WITH SPONTANEOUS BLEED FROM RT HEPATIC LOBE TUMOR/ HCT STABLE/ PT ON ELIQUIS VS STABLE ABD SOFT BUT TENDER RUQ CHEST CLEAR COR RR IMP: HCC WITH SPONTANEOUS BLEED, STABLE Plan:STOP ANTICOAGULATION/ CONSIDER EMBOLIZATION/ TUMOR IS SURGICALLY RESECTABLE 12/21/17 16:59 12/22/17 10:51 stable after IR embolization/ still some pain/ hct stable/ plan per oncology 12/22/17 10:52 afebrile, reasonably comfortable/ hct 33/ abd soft with some ruq tenderness Objective: Vital Signs Temp Pulse Resp BP Pulse Ox 36.6 C 79 14 172/72 H 97 12/22/17 03:12 12/22/17 08:00 12/22/17 08:00 12/22/17 08:00 12/22/17 08:00 Laboratory Results 12/22/17 05:45 12/22/17 05:45 12/21/17 12/22/17 12/23/17 05:59 05:59 05:59 Intake Total 3155 1195 Output Total 350 700 Balance 2805 495 PT 17.0 SEC (12.0-15.0) H 12/20/17 20:30 INR 1.37 (0.83-1.16) H 12/20/17 20:30 ICD10 Worksheet Patient Problems: Problems Problem Status Onset Hepatocellular carcinoma Acute Subcapsular hemorrhage of liver Acute Dyspnea Acute Hypoxia Acute Leukocytosis Acute
[2017-12-22] MEDS: NYSTATIN 15 GM CR TUBE TP SCH ×2 (11:10→20:10)
--- NOTE | 2017-12-22 16:03 | GCON ---
[f rep st] CONSULTATION ONCOLOGY CONSULTATION REASON FOR CONSULTATION: Hepatocellular carcinoma. HISTORY OF PRESENT ILLNESS: The patient is a 77-year-old woman, recently diagnosed with hepatocellular carcinoma. CT angiogram incidentally showed a large tumor in the liver during evaluation for dyspnea. MRI demonstrated a 9 x 7.5 x 7 cm dominant mass in the right lobe of the liver. The inferior portion contacted the right kidney. A 3 cm exophytic left renal lesion was also present , suspicious for renal cell carcinoma. Biopsy demonstrated moderately differentiated hepatocellular carcinoma. AST elevated at 98. She saw Dr. Munguia for an oncology consultation, with a plan for TACE and systemic therapy with Sorafenib. She presented to the emergency room 12/20/2017, with right upper quadrant pain, and was found to have intraparenchymal hemorrhage and concern for capsular rupture. She was on Eliquis on admission. Dr. Peterson performed a particle embolization in segments 5 and 6, and coil embolization in segments 7 and 8, yesterday. She has not yet received Sorafenib from the specialty pharmacy. She has a followup appoint with Dr. Munguia in a couple of weeks. She reports pain is adequately controlled and that she feels a little "woozy" on pain medications. PAST MEDICAL HISTORY: 1. Diabetes. 2. Rheumatoid arthritis on Remicade. 3. Hypertension. SOCIAL HISTORY: She is relocating from [place] to [place], and is currently living with her daughter. Nonsmoker, no alcohol use. FAMILY HISTORY: Her brother had testicular cancer. Paternal aunt had colon cancer. REVIEW OF SYSTEMS: HEMATOLOGIC: No other bleeding. GI: As above. RESPIRATORY: No dyspnea, pleurisy. CARDIOVASCULAR: No lower extremity edema. PHYSICAL EXAM: VITAL SIGNS: Blood pressure 188/74, heart rate 75, 97% on 2 L, afebrile. GENERAL: Elderly woman, in no acute distress. She is mildly sleepy , but arousable and appropriate. HEENT: No scleral icterus. LUNGS: Clear to auscultation. ABDOMEN: Soft, nontender. LABORATORY DATA: On admission, hemoglobin 8.0, 11.1 today. She has received 2 units of PRBCs during this hospital stay. (12/13/2017), hemoglobin 12.7. White count today 26,000 (81% neutrophils), hemoglobin 11.1, platelets 385,000. Creatinine 0.8, total bilirubin 0.9, AST 148, ALT 118, alkaline phosphatase 81. RADIOLOGIC DATA: Per HPI. IMPRESSION: 1. 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 2. Intraparenchymal hepatic bleed, status post bland embolization. TREATMENT PLAN: She will begin Sorafenib 200 mg b.i.d., when it is available to her. She will follow up with Dr. Munguia. Depending on response, she may be a candidate for Y90 therapy. The left renal lesion is likely renal cell carcinoma, which will be followed for now. Sorafenib will potentially also treat that. Depending how the hepatocellular cancer responds, nonoperative therapy of the renal lesion, such as radiofrequency ablation, could be considered. We will follow peripherally. Please call with any questions. /[id number]/MODL MTDD
[2017-12-22] MEDS: ENALAPRILAT DIHYDRATE 1.25 MG/ML VIAL IV PRN (20:04)
[2017-12-22] MEDS: CHOLECALCIFEROL VIT D3 2,000 UNITS TAB/CAP PO SCH (20:06)
[2017-12-22] MEDS: VERAPAMIL ER 240 MG TAB PO SCH (20:06)
[2017-12-22] MEDS: traZODone 50 MG TAB PO SCH (20:06)
[2017-12-22] MEDS: CETIRIZINE 10 MG TAB PO SCH (20:07)
[2017-12-22] MEDS: LOSARTAN POTASSIUM 50 MG TAB PO SCH (20:07)
[2017-12-22] MEDS: DULoxetine 60 MG CAP PO SCH (20:07)
[2017-12-22] MEDS: PATCH REMOVAL 1 EA PATCH TD SCH (20:10)
[2017-12-22] MEDS ORDERED: FUROSEMIDE 20 MG/2 ML VIAL IVP ONE (22:15)
[2017-12-23 07:29] LABS: PLATELET COUNT 350 10^3/uL (150-400)
[2017-12-23] MEDS: LIDOCAINE 4%/MENTHOL 1% PATCH TD SCH (08:21)
[2017-12-23] MEDS: DEXAMETHASONE 4 MG TAB PO SCH ×2 (08:22→20:11)
[2017-12-23] MEDS: FAMOTIDINE 20 MG TAB PO SCH ×2 (08:22→20:13)
[2017-12-23] MEDS: SENNOSIDES/DOCUSATE SODIUM TAB PO SCH ×2 (08:58→20:13)
[2017-12-23] MEDS: NYSTATIN 15 GM CR TUBE TP SCH ×2 (08:58→21:43)
--- NOTE | 2017-12-23 08:59 | PDINTPN ---
Merchandising Coordinator Progress Note Assessment/Plan: Assessment/plan: * Hepatocellular carcinoma * Acute intrahepatic hemorrhage-status post embolization per IR yesterday. * Acute blood-loss anemia-currently stable -follow H and H closely and transfuse appropriately * Pain-minimal * Kidney mass-likely renal cell carcinoma * Atrial fibrillation-heart rate stable * Chronic anticoagulation with Eliquis-on hold * PT/OT * Disposition-likely transfer to floor or to home today Subjective: Sitting up in chair eating breakfast. Pain is well tolerated. She slept well last night Objective: Vital Signs Temp Pulse Resp BP Pulse Ox 36.7 C 64 13 139/58 H 96 12/23/17 04:00 12/23/17 08:00 12/23/17 04:00 12/23/17 08:00 12/23/17 04:24 Laboratory Results 12/23/17 05:45 12/23/17 05:45 12/22/17 12/23/17 12/24/17 05:59 05:59 05:59 Intake Total 1195 1000 Output Total 700 3500 Balance 495 -2500 PT 17.0 SEC (12.0-15.0) H 12/20/17 20:30 INR 1.37 (0.83-1.16) H 12/20/17 20:30 - Time Spent With Patient Time Spent With Patient: 25 min of time spent with patient, over 1/2 involved with coordination of care or counseling Case discussed with nursing and hospitalist Physical Exam - Physical Exam General Appearance: alert, no apparent distress EENT: PERRL/EOMI, normal ENT inspection Neck: non-tender, full range of motion, supple, normal inspection Respiratory: chest non-tender, lungs clear, normal breath sounds Cardiac/Chest: systolic murmur, irregularly irregular Peripheral Pulses: 2+: carotid (R), carotid (L), femoral (R), femoral (L), dorsalis-pedis (R), dorsalis-pedis (L) Abdomen: normal bowel sounds, non-tender, soft Pelvic Exam: deferred Rectal: deferred Skin: normal color, warm/dry Extremities: normal range of motion, non-tender, normal inspection, normal capillary refill Neuro/Psych: no motor/sensory deficits, alert, normal mood/affect, oriented x 3 ICD10 Worksheet Patient Problems: Problems Problem Status Onset Hepatocellular carcinoma Acute Subcapsular hemorrhage of liver Acute Dyspnea Acute Hypoxia Acute Leukocytosis Acute
--- NOTE | 2017-12-23 09:48 | HOSPPROG ---
Hospitalist Progress Note Assessment/Plan: Hospitalist Progress Note Assessment/Plan: 77-year-old female presents with acute abdominal pain secondary to acute intra- hepatic bleeding resulting in acute blood loss anemia 2/2 spontaneous HCC bleed in setting of eliquis Abdominal pain 2/2 acute intra-hepatic bleeding. Spontaneous, 2/2 HCC w/ eliquis -POD #2 partial bland embolization by Dr. Peterson -at risk for recurrent, spontaneous bleeding, monitor closely, low threshold for repeat CBC/imaging -PRN dilaudid PO and IV for breakthrough Hepatocellular carcinoma. Per onc, plan is for Nexavar (which is PO, covers both HCC and RCC) to be delivered to patient's home via specialty mail pharmacy , and she should start later this week -plan for concomitant XRT, to be arranged by primary oncologist Dr. Munguia -Dr. Peterson's office will contact patient to schedule Y90, which cannot occur for 2 -3 weeks after receiving partial bland embolization -bone scan in am Acute blood loss anemia. Stabilized s/p 2u PRBC, Hgb stable at 11 -follow for signs/symptoms of bleeding HTN. Held home Rx 5/7 PM given blood loss, now w/ rising BP and risk for inducing bleed if > 180, increased Losartan to 100 mg daily and BP improved -PRN hydralazine and enalapril IV Leukocytosis. WBC's remain elevated, but trending down. Unclear if stress response. No obvious signs of infection and afebrile. -monitor closely, consider rpt CT abd Acute hyponatremia. Most likely secondary to hypovolemia in the setting of above -cont NS -add salt tabs, likely needs solute Acute kidney injury. Resolved s/p IVF/blood Transaminitis. Secondary to HCC, LFT's on the rise today -continue to trend Gale intertrigo - cont nystatin cream Sacral pressure injury - wound care to eval / treat Permanent atrial fibrillation. Currently holding Eliquis and cont to hold for minimum of 2 weeks given severity of bleed. -consider resuming at lower dose with RADHA when deemed stable. Diet. Regular Prophylaxis. High risk patient, currently off of Eliquis, SCDs Code. Full Disposition. ADD uncertain, cont inpt, transfer to med/surg 1N High-level of medical complexity, high risk patient for worsening morbidity secondary to the issues as outlined above. Subjective: Pt feels very tired after walking a little this am. No fevers. No significant abdominal pain. No e/o ongoing bleeding. She is weak. Objective: Vital Signs Temp Pulse Resp BP Pulse Ox 36.7 C 64 13 139/58 H 96 12/23/17 04:00 12/23/17 08:00 12/23/17 04:00 12/23/17 08:00 12/23/17 04:24 Laboratory Results 12/23/17 05:45 12/23/17 05:45 12/22/17 12/23/17 12/24/17 05:59 05:59 05:59 Intake Total 1195 1000 Output Total 700 3500 Balance 495 -2500 PT 17.0 SEC (12.0-15.0) H 12/20/17 20:30 INR 1.37 (0.83-1.16) H 12/20/17 20:30 - Physical Exam Constitutional: no apparent distress Eyes: PERRL Ears, Nose, Mouth, Throat: moist mucous membranes Cardiovascular: regular rate and rhythym Respiratory: no respiratory distress, reduced air movement Gastrointestinal: normoactive bowel sounds, soft, non-tender abdomen Skin: warm Musculoskeletal: generalized weakness Neurologic: AAOx3 Psychiatric: interacting appropriately ICD10 Worksheet Patient Problems: Problems Problem Status Onset Hepatocellular carcinoma Acute Subcapsular hemorrhage of liver Acute Dyspnea Acute Hypoxia Acute Leukocytosis Acute
[2017-12-23] MEDS: fentaNYL 25 MCG PATCH TD SCH (12:15)
--- NOTE | 2017-12-23 13:12 | ASMTCMCOM ---
CM Note CM Note Notes: PT has recommended home care or home. Patient is current with [facility]. Michaela is patient's home health nurse. Notified [facility] and they will continue patient's care at d/c. No further needs. CM is available if new needs arise. Date Signed: 12/23/2017 01:10 PM Electronically Signed By:Shauna Jeffries LCSW
[2017-12-23] MEDS: ENALAPRILAT DIHYDRATE 1.25 MG/ML VIAL IV PRN (16:29)
[2017-12-23] MEDS: HYDROmorphONE/DILAUDID 2 MG TAB PO PRN ×2 (16:29→21:44)
[2017-12-23] MEDS: SODIUM CHLORIDE 1,000 MG TAB PO SCH (17:06)
[2017-12-23] MEDS: hydrALAZINE 20 MG/ML VIAL IVP PRN (17:38)
[2017-12-23] MEDS: VERAPAMIL ER 240 MG TAB PO SCH (20:11)
[2017-12-23] MEDS: DULoxetine 60 MG CAP PO SCH (20:11)
[2017-12-23] MEDS: traZODone 50 MG TAB PO SCH (20:11)
[2017-12-23] MEDS: LOSARTAN POTASSIUM 50 MG TAB PO SCH (20:13)
[2017-12-23] MEDS: CHOLECALCIFEROL VIT D3 2,000 UNITS TAB/CAP PO SCH (20:13)
[2017-12-23] MEDS: CETIRIZINE 10 MG TAB PO SCH (20:13)
[2017-12-23] MEDS: PATCH REMOVAL 1 EA PATCH TD SCH (21:46)
[2017-12-24] MEDS: HYDROmorphONE/DILAUDID 2 MG TAB PO PRN ×2 (01:54→21:05)
[2017-12-24 05:34] LABS: PLATELET COUNT 335 10^3/uL (150-400)
[2017-12-24] MEDS: LIDOCAINE 4%/MENTHOL 1% PATCH TD SCH (08:05)
[2017-12-24] MEDS: SODIUM CHLORIDE 1,000 MG TAB PO SCH ×3 (08:06→21:04)
[2017-12-24] MEDS: SENNOSIDES/DOCUSATE SODIUM TAB PO SCH ×3 (08:06→21:07)
[2017-12-24] MEDS: DEXAMETHASONE 4 MG TAB PO SCH (08:06)
[2017-12-24] MEDS: FAMOTIDINE 20 MG TAB PO SCH ×2 (08:07→21:04)
[2017-12-24] MEDS: NYSTATIN 15 GM CR TUBE TP SCH ×2 (08:14→21:08)
[2017-12-24] MEDS: hydrALAZINE 20 MG/ML VIAL IVP PRN ×2 (08:22→16:25)
[2017-12-24] MEDS ORDERED: D50W 25 GM/50 ML SYR IVP PRN (12:07)
--- NOTE | 2017-12-24 12:17 | HOSPPROG ---
Hospitalist Progress Note Assessment/Plan: Hospitalist Progress Note Assessment/Plan: 77-year-old female presents with acute abdominal pain secondary to acute intra- hepatic bleeding resulting in acute blood loss anemia 2/2 spontaneous HCC bleed in setting of eliquis Abdominal pain 2/2 acute intra-hepatic bleeding. Spontaneous, 2/2 HCC w/ eliquis -POD #3 partial bland embolization by Dr. Peterson -at risk for recurrent, spontaneous bleeding, monitor closely, low threshold for repeat CBC/imaging -PRN dilaudid PO and IV for breakthrough Hepatocellular carcinoma. Per onc, plan is for Nexavar (which is PO, covers both HCC and RCC) to be delivered to patient's home via specialty mail pharmacy , and she should start later this week -plan for concomitant XRT, to be arranged by primary oncologist Dr. Munguia -Dr. Peterson's office will contact patient to schedule Y90, which cannot occur for 2 -3 weeks after receiving partial bland embolization -bone scan today -discussed case with Dr. Munguia, will d/c dexamethasone as she was only taking this for pain control and currently pain free Transaminitis. Likely secondary to HCC. -continue to trend Acute blood loss anemia. Stabilized s/p 2u PRBC, Hgb stable at 11 -follow for signs/symptoms of bleeding HTN. Held home Rx 5/7 PM given blood loss, now w/ rising BP and risk for inducing bleed if > 180, increased Losartan to 100 mg daily and BP improved -PRN hydralazine and enalapril IV Leukocytosis. WBC's remain elevated. Suspect steroid induced (On Dex). No obvious signs of infection and afebrile. -cont to monitor, hopefully will start to trend down off steroids. Acute hyponatremia. Na dropping on NS, ?SIADH -d/c NS -fluid restrict, increase salt tabs Hyperglycemia - likely 2/2 Dexamethasone. -add SSI -check a1c (pt has h/o pre-diabetes, was previously on MTF, did not tolerate) -d/c dexamethasone Acute kidney injury. Resolved s/p IVF/blood Gale intertrigo - cont nystatin cream Sacral pressure injury - wound care to eval / treat Permanent atrial fibrillation. Currently holding Eliquis given severity of bleed. -likely resume at lower dose at d/c. Discussed with Dr. Peterson, who feels anti- coagulation is safe after definitive management of her intrahepatic bleed) Diet. Regular Prophylaxis. High risk patient, currently off of Eliquis, SCDs Code. Full Disposition. ADD uncertain, cont inpt, possible d/c 1-2 days High-level of medical complexity, high risk patient for worsening morbidity secondary to the issues as outlined above. Subjective: Pt doing much better today, no pain. Notes she is weak and a little unbalanced on her feet. Has bain. Taking po fairly well. Objective: Vital Signs Temp Pulse Resp BP Pulse Ox 36.4 C 67 18 141/65 H 92 12/24/17 08:08 12/24/17 09:28 12/24/17 09:28 12/24/17 09:28 12/24/17 09:28 Laboratory Results 12/24/17 04:28 12/24/17 04:28 12/23/17 12/24/17 12/25/17 05:59 05:59 05:59 Intake Total 1000 800 Output Total 3500 1675 Balance -2500 -875 PT 17.0 SEC (12.0-15.0) H 12/20/17 20:30 INR 1.37 (0.83-1.16) H 12/20/17 20:30 - Physical Exam Constitutional: no apparent distress Eyes: PERRL Ears, Nose, Mouth, Throat: moist mucous membranes Cardiovascular: regular rate and rhythym Respiratory: no respiratory distress Gastrointestinal: normoactive bowel sounds, soft, non-tender abdomen Skin: warm Musculoskeletal: full muscle strength Neurologic: AAOx3 Psychiatric: interacting appropriately ICD10 Worksheet Patient Problems: Problems Problem Status Onset Hepatocellular carcinoma Acute Subcapsular hemorrhage of liver Acute Dyspnea Acute Hypoxia Acute Leukocytosis Acute
[2017-12-24] MEDS: INSULIN LISPRO 100 UNIT/ML SC SCH ×2 (18:43→21:06)
[2017-12-24] MEDS: LOSARTAN POTASSIUM 50 MG TAB PO SCH (21:04)
[2017-12-24] MEDS: VERAPAMIL ER 240 MG TAB PO SCH (21:04)
[2017-12-24] MEDS: DULoxetine 60 MG CAP PO SCH (21:04)
[2017-12-24] MEDS: CHOLECALCIFEROL VIT D3 2,000 UNITS TAB/CAP PO SCH (21:04)
[2017-12-24] MEDS: CETIRIZINE 10 MG TAB PO SCH (21:04)
[2017-12-24] MEDS: traZODone 50 MG TAB PO SCH (21:04)
[2017-12-24] MEDS: PATCH REMOVAL 1 EA PATCH TD SCH (21:07)
[2017-12-25 05:49] LABS: PLATELET COUNT 327 10^3/uL (150-400)
[2017-12-25] MEDS: INSULIN LISPRO 100 UNIT/ML SC SCH ×2 (08:36→13:17)
[2017-12-25] MEDS: LIDOCAINE 4%/MENTHOL 1% PATCH TD SCH (08:37)
[2017-12-25] MEDS: SODIUM CHLORIDE 1,000 MG TAB PO SCH (08:37)
[2017-12-25] MEDS: FAMOTIDINE 20 MG TAB PO SCH (08:38)
[2017-12-25] MEDS: SENNOSIDES/DOCUSATE SODIUM TAB PO SCH (08:38)
[2017-12-25] MEDS: NYSTATIN 15 GM CR TUBE TP SCH (08:38)
[2017-12-25 08:53] VITALS: BP 158/71
--- NOTE | 2017-12-25 10:38 | SOAPPROG ---
SORITA Progress Note Assessment/Plan: Assessment: 1. Hepatocellular carcinoma, locally advanced 2. Likely L renal cell carcinoma, stage I 3. Hemorrhage into liver tumor s/p bland embolization 4. History of A fib - currently NSR bone scan did not show metastatic disease. Plan: - d/c to home when able - probably today from my perspective - pt to start taking sorafenib 200 mg BID on discharge (she has this at home) - f/u with me in clinic on 01/06. - plan for Y90 radioembolization to liver tumor in next few weeks, if anatomically feasible (will d/w Dr. Peterson) - do not restart eliquis - risks outweigh benefits right now. 30 min spent w/ pt and in coordination of care. 12/25/17 10:32 Subjective: tired but not having pain. Objective: exam: NAD Lungs CTAB CV RRR no MGR Abd: +BS NT ND Ext: 1+ edema Neuro: a+ox3 Vital Signs Temp Pulse Resp BP Pulse Ox 36.5 C 69 18 158/71 H 97 12/25/17 08:52 12/25/17 08:52 12/25/17 08:52 12/25/17 08:52 12/25/17 08:52 Laboratory Results 12/25/17 04:36 12/25/17 04:36 12/24/17 12/25/17 12/26/17 05:59 05:59 05:59 Intake Total 800 490 Output Total 1675 1350 Balance -875 -860 PT 17.0 SEC (12.0-15.0) H 12/20/17 20:30 INR 1.37 (0.83-1.16) H 12/20/17 20:30 ICD10 Worksheet Patient Problems: Problems Problem Status Onset Hepatocellular carcinoma Acute Subcapsular hemorrhage of liver Acute Dyspnea Acute Hypoxia Acute Leukocytosis Acute
--- NOTE | 2017-12-25 11:19 | PDIAF ---
- Diagnosis Diagnosis: Hepatocellular carcinoma Code Status: Full Code - Medication Management Discharge Medications: Medications to Continue on Transfer Cetirizine [ZyrTEC 10 mg (*)] 10 mg PO HS 12/05/17 [Last Taken 12/19/17] Cholecalciferol Vit D3 [Vitamin D3 2000 units tab (OTC)] 2,000 units PO HS 12/05 [Last Taken 12/19/17] DULoxetine [Cymbalta 60 MG (*)] 60 mg PO HS 12/05/17 [Last Taken 12/19/17] Fluticasone Nasal [Flonase Nasal Jenkins] 2 sprays NASAL DAILY PRN 12/05/17 [Last Taken Unknown] Ranitidine HCl [Zantac] 150 mg PO BID 12/05/17 [Last Taken 12/19/17] Verapamil ER [Calan SR/ER 240MG (*)] 240 mg PO HS 12/05/17 [Last Taken 12/19/17] Acetaminophen [Tylenol 325mg (*)] 650 mg PO Q4HRS PRN tab 12/08/17 [Last Taken Unknown] Benzonatate [Tessalon Pearles] 100 mg PO TID PRN #30 cap 12/08/17 [Last Taken Unknown] oxyCODONE IR [Oxycodone Ir (*)] 5 mg PO Q4 PRN #20 tab 12/08/17 [Last Taken 03/02 04:30 10mg] fentaNYL [Duragesic 25 MCG Patch (*)] 25 mcg TD Q72H 12/20/17 [Last Taken ] inFLIXimab [Remicade Inj 100 mg (*)] 400 mg IV .[id number] 12/20/17 [Last Taken Unknown] traZODone [traZODONE 50MG (*)] 50 mg PO HS 12/20/17 [Last Taken 12/19/17] HYDROmorphone HCL [Dilaudid 2 mg (*)] 2 mg PO Q6H #30 tab 12/25/17 [Last Taken Unknown] Losartan Potassium [Cozaar 50 mg (*)] 100 mg PO HS #30 tab 12/25/17 [Last Taken Unknown] Nystatin [Mycostatin Cream (RX)] 1 karina TOP BID #30 crtube 12/25/17 [Last Taken Unknown] Ondansetron Odt [Zofran Odt 4 mg (*)] 4 mg PO Q6H PRN #30 tab 12/25/17 [Last Taken Unknown] Sennosides/Docusate Sodium [Senokot-S] 1 - 2 tab PO BID tab 12/25/17 [Last Taken Unknown] Discharge Medications: Refer to the Discharge Home Medication list for PRN reason. - Orders Services needed: Home Care, Registered Nurse, Physical Therapy Home Care Face to Face: I certify that this patient was under my care and that I had the required [id number] encounter meeting the encounter requirements on the discharge day. My findings support the fact that the patient is homebound as defined in Home Care Face to Face Continued: CMS Chapter 7 Medicare Benefits Manual 30.1.1 , The condition of the patient is such that there exists a normal inability to leave home and consequently, leaving home would require a considerable and taxing effort. Isolation Type: None Diet Recommendation: no restrictions on diet Additional Instructions: Follow up with Dr. Munguia (or one of the TISSUE TECHNOLOGIST's) next week. Call their office to move your appointment up from 01/06. Stop the Dexamethasone and Simvastatin (due to elevated liver enzymes). Continue to hold the Eliquis, until directed by Dr. Munguia to restart it. Start the Sorafenib as directed by Dr. Munguia. I increased the Losartan to 100 mg daily for better blood pressure control, new Rx sent to your pharmacy. - Follow Up Care Current Providers and Referrals: Kailash Munguia MD [Medical Doctor] - Patient,NotPresent [Unknown] - As per Instructions
[2017-12-25] MEDS: HYDROmorphONE/DILAUDID 2 MG TAB PO PRN (13:46)
--- NOTE | 2017-12-25 16:26 | ASMTLACE ---
LACE Length of stay for Answers: 4-6 days current admission Acuity / Level of Answers: Yes Care: Did the patient have an inpatient admission? Comorbidities - select Answers: Any tumor (including all that apply lymphoma or leukemia) Diabetes (uncontrolled or controlled) # of Emergency department Answers: 1-2 visits in the last 6 months Score: 11 Date Signed: 12/25/2017 01:24 PM Electronically Signed By:Vernell King LCSW
--- NOTE | 2017-12-25 16:26 | ASMTCMCOM ---
CM Note CM Note Notes: Pt ready for DC today. She will resume care with [facility]. they were alerted. Date Signed: 12/25/2017 01:23 PM Electronically Signed By:Vernell King LCSW
--- NOTE | 2017-12-26 03:57 | GDS ---
[f rep st] DISCHARGE SUMMARY DISCHARGE DIAGNOSES: 1. Abdominal pain secondary to acute intrahepatic spontaneous bleeding. 2. Hepatocellular carcinoma. 3. Transaminitis secondary to above. 4. Acute blood loss anemia, hemoglobin stable. 5. Hypertension. 6. Chronic leukocytosis. 7. Hyponatremia. 8. Hyperglycemia, likely steroid induced. 9. Acute kidney injury. 10. Gale intertrigo. 11. Sacral pressure injury. 12. Chronic atrial fibrillation, anticoagulation is held at the time of discharge. CONSULTANTS: 1. Moreno Blanco DO, Pulmonary Critical Care. 2. Florina Peterson MD, Interventional Radiology. 3. Carli Donis MD, Oncology. HISTORY: For details, please the history and physical dated December 20, 2017. In brief, the patient is a 77-year-old female with recent diagnosis of hepatocellular carcinoma who has been chronically antico agulated for atrial fibrillation, presented to the emergency department after a fall and was found to have an acute subcapsular hepatic bleeding event. She was admitted to the hospital for further annette gement. HOSPITAL COURSE: The patient was admitted to the intensive care unit. She received pain control. I nterventional Radiology was consulted regarding her hepatic capsular rupture and intrahepatic bleedin g. She underwent planned arterial embolization with good outcome. Her anticoagulation was obviously held and continued to be held at the time of discharge as it seems the risk outweighs the benefit at this time. She is followed by Dr. Munguia for her hepatocellular carcinoma, and she will resume he r chemotherapy at the time of discharge. She did receive 2 units of packed red blood cells for acute blood loss anemia. Her hemoglobins remained stable at 11 at the time of discharge. She has chronic transaminitis secondary to her hepatocellular carcinoma. Regarding her atrial fibrillation, she has been rate controlled and is in sinus rhythm at the time of discharge. We will continue to hold her Eliquis for a minimum of 2 weeks and would resume at the discretion of Dr. Munguia as it seems her r isk of bleeding outweighs her stroke risk, especially given that she is maintaining normal sinus rhyt hm. She did require dexamethasone which was started for pain control. At the time of discharge, thi s was discontinued in the setting of persistent leukocytosis and hyperglycemia. Her pain has remaine d well controlled off the dexamethasone. She is instructed to start her sorafenib chemotherapy presc ription which she has at home, and she will follow up with Dr. Munguia at the [facility] this week. In addition, I have increased her losartan to 100 mg daily for better blood pressu re control as she is at risk for spontaneous bleeding. Her blood pressure at the time of discharge is 150/59. DISPOSITION: Patient is discharged home in stable condition with home health services. FOLLOWUP: 1. Dr. Kailash Munguia at [facility] in [address] Florina Peterson, Interventional Radiology, in 2 weeks for Y90 treatment which cannot be given until 2 to 3 weeks after receiving partial .. MEDICATIONS: DISCHARGE MEDICATIONS: Please see [facility] for completed outpatient medication list. NEW MEDICATIONS ON DISCHARGE: Include Zofran 4 mg p.o. q.4 hours p.r.n., #30, no refills; Senokot 1 to 2 tabs p.o. b.i.d.; nystatin cream for Gale intertrigo b.i.d.; Dilaudid 2 mg p.o. q.6 hours p.r .n., #30, no refills. CHANGED MEDICATIONS: Losartan is increased from 50 to 100 mg p.o. q.h.s. DISCONTINUED MEDICATIONS: Simvastatin was discontinued in the setting of elevated LFTs, Eliquis was discontinued in the setting of an intrahepatic bleeding. Dexamethasone was also discontinued. /[id number]/MODL
== END 2017-12-25 14:45 | disposition home or self-care (01) | DRG 988 ==
LOC: EDUNIT# → F2N 12:30 → F1N 12-23 20:37
PROVIDERS: ADMIT Internal Medicine; ATTEND Internal Medicine
PROC: 04L33DZ Occlusion of Hepatic Artery with Intraluminal Device, Percutaneous Approach (ICD-10-PCS; principal; 2017-12-19)
DX: K76.89 Other specified diseases of liver (principal); D62 Acute posthemorrhagic anemia; D68.32 Hemorrhagic disorder due to extrinsic circulating anticoagulants; C22.8 Malignant neoplasm of liver, primary, unspecified as to type; N17.9 Acute kidney failure, unspecified; E87.1 Hypo-osmolality and hyponatremia; J98.11 Atelectasis; B37.2 Candidiasis of skin and nail; R74.0 Nonspecific elevation of levels of transaminase and lactic acid dehydrogenase [LDH]; R73.9 Hyperglycemia, unspecified; T38.0X5A Adverse effect of glucocorticoids and synthetic analogues, initial encounter; D72.829 Elevated white blood cell count, unspecified; M06.9 Rheumatoid arthritis, unspecified; E78.5 Hyperlipidemia, unspecified; I10 Essential (primary) hypertension; I48.2 Chronic atrial fibrillation; Z79.01 Long term (current) use of anticoagulants; Z96.652 Presence of left artificial knee joint
CPT/HCPCS: 97110-GP; 97116-GP; 97161-GP; 97165-GO; A9503; A9540; C1760; C1769; C1894; G8978-GP-CJ; G8979-GP-CI; G8987-GO-CJ; G8988-GO-CI; J0360; J1170; J1644; J1815; J1940; J2250; J3010; P9016; P9021; Q9967

== ENCOUNTER 2018-01-06 22:12 | Inpatient (IN) | payer OTHER, BC ==
[2018-01-06] MEDS ORDERED: NS 1,000 ML IV ONE ×2 (22:17→23:01)
[2018-01-06] MEDS ORDERED: LORazepam 2 MG/ML INJ IVP ONE ×2 (22:18→22:49)
[2018-01-06] MEDS ORDERED: LORazepam 2 MG/ML INJ ONE (22:18)
--- NOTE | 2018-01-06 22:24 | EDPHY ---
H & P Time Seen by Provider: 01/06/18 22:19 HPI/ROS: HPI CHIEF COMPLAINT: Altered mental status, agitation, confusion HISTORY OF PRESENT ILLNESS: Patient is a 77-year-old female she presents emergency room by EMS for altered mental status and confusion and agitation. EMS reports that the family called 911 because around 9 o'clock she became altered and confused and somewhat agitated. EMS reports they were unable to get any history from her and she was pulling at lines and removing medical equipment including her IV, oxygen and cardiac leads. She presents to the emergency room and ER room 3 where I greeted her, she appears acutely agitated and altered, she is removing everything and pulling at medical devices. She does not follow commands, she is very restless, moving all 4 extremities, and mumbling. She was just recently here in the hospital for intrahepatic bleeding from a fall with a subcapsular hematoma. Her Eliquis was held she has a longstanding history of AFib. Past Medical History: Metastatic RCC, Hepatocellular carcinoma, transaminitis, acute blood loss anemia from a fall with a hepatic hematoma s/p Blood transfusion, IR intervention, hypertension, hyponatremia, hyperglycemia, AFib and used to be on anticoagulation but is off, Past Surgical History: No recent surgery. Social History: Lives locally denies drugs alcohol tobacco. Family History: Noncontributory ROS REVIEW OF SYSTEMS: Limited due to patient's clinical state and mental state. No family at bedside yet. Exam Constitutional agitated, altered, confused triage nursing summary reviewed, vital signs reviewed patient noted be hypertensive upon arrival. Eyes normal conjunctivae and sclera, EOMI, PERRLA. HENT normal inspection, atraumatic, moist mucus membranes, no epistaxis, neck supple/ no meningismus, no raccoon eyes. Respiratory clear to auscultation bilaterally, normal breath sounds, no respiratory distress, no wheezing. Cardiovascular rate normal, regular rhythm, no murmur, no edema, distal pulses normal. Gastrointestinal soft, non-tender, no rebound, no guarding, normal bowel sounds, no distension, no pulsatile mass. Genitourinary no CVA tenderness. Musculoskeletal no midline vertebral tenderness, full range of motion, no calf swelling, no tenderness of extremities, no meningismus, good pulses, neurovascularly intact. Skin pink, warm, & dry, no rash, skin atraumatic. Neurologic moves all her extremities but is agitated and confused, pulls at medical devices, confused, agitated. Does not follow commands. Differential Diagnosis: Includes but is not limited to in a particular order acute agitation, altered mental status, electrolyte disturbance, infection, intracranial bleed, CVA, hypertensive emergency hypertensive urgency Medical Decision Making: Plan for this patient IV establishment blood draw, check urinalysis, CT scan head without contrast, EKG and troponin, blood cultures, lactic acid, acute evaluation for altered mental status and acute agitation. Re-evaluation: 2249: Daughter just arrived explains that she went to go use the bathroom and she went to her bathroom in her daughter's bedroom she called out for help and her daughter found her urinating not in the bathroom but on a chair on the ground. She appeared acutely confused and altered and agitated. This went on for another half an hour to hour called 911 due to increasing agitation confusion. She apparently was going back and forth from a chair to the couch multiple times. She could not follow commands according to her daughter. EKG interpretation by me on record in [employer] system. Impression time of EKG 2244: This is sinus rhythm , with a sinus arrhythmia, rate of 98 pr interval 216, no ST elevation no significant ST depression shows sinus arrhythmia. 2304: Patient is acutely agitated still pulling and at her medical equipment and not resting comfortably. She initially received 1 mg IV Ativan upon arrival. She will receive a 2nd mg IV Ativan to see if we can get her more calm to get an urgent CT scan of her head to rule out bleed/cva. If she does not calmed down after 2nd dose of Ativan I will give her a larger dose of Versed to obtain CT imaging. 2316: Patient re-evaluated her blood pressure is noted to be 226/117. Given her agitation and aggressiveness I am concerned about hypertensive emergency. She will be started on nicardipine drip. Additionally I have ordered 5 mg IV Versed will get 2.5 mg here to see if she can get more sleepy and comfortable and then 2.[address] 2342: Patient back from CT and ER room 2. Hemodynamically stable. Her blood pressure is noted to be 200/100s. She is being started on nicardipine drip at [address] scan head without contrast reviewed by myself. I do not visualize any acute bleed. Waiting on radiology's interpretation. Updated daughter at bedside. 2343: Patient is in ER room 2. Sedated. However moving her extremities. ED x-ray chest one view: Negative for focal pneumonia. CT scan head without contrast called to me by Dr. Rayshawn Sainz. Negative for acute bleed. Negative for acute stroke. KUB reviewed by myself. I do not appreciate free air. Plan will be go back to CT scan CT scan chest abdomen pelvis with IV contrast. She is on her nicardipine drip at this time blood pressure 170s much improved will not dropped lower than this. 1241: Patient is back from CT scan chest abdomen pelvis. Results are pending. She is somewhat still very agitated and pulling at things. I have ordered her 50 mcg IV fentanyl to see if this calms her down. It is unclear if she is uncomfortable or in pain. She remains on the nicardipine drip her blood pressure is improving to the 170s to 180s. Will hold there. 1256AM: Spoke with [facility] Dr. Jong Rowley. He agrees with current treatment plan and workup. He did discuss possible MRI with and without contrast once patient is able to sit still for period of time. Recommends this tomorrow. Would recommend are inpatient neurology team seeing and evaluating as well. No further acute recommendations at this time. EKG interpretation by me on record in [employer] system. Impression time of EKG 1:09 a.m., sinus rhythm first-degree AV block NC interval 232 similar to previous EKG earlier this evening. 0115: CT scan chest abdomen pelvis with IV contrast called to me by Dr. Scott Sainz. Please see his full dictation report for details of the scans. There is no central pulmonary embolism. Motion artifact due to heavy breathing. There is some infiltrated the bilateral lower lobes. This is possible concerning for pneumonia. Additionally the esophagus is thickened, additionally duodenal region is thickened. As for CT scan abdomen pelvis with IV contrast is no evidence of acute intra- abdominal bleed. There is changes to her hepatics lesions from recent embolization. Plan will be for admission to the ICU: For altered mental status, acute agitation, elevated lactic acid, there is no evidence of sepsis on exam she is not febrile she does not have an elevated white count her lactic acid improved with fluids. Will cover her brother broad-spectrum antibiotics in case there is an infection She remains on nicardipine drip to slowly improve her blood pressure. I question if she is altered agitated due to hypertensive encephalopathy. Critical Care: Total Critical Care Time Spent Managing this Patient: 85 Minutes. This time was spent Exclusively with this patient. This Care was exclusive of procedures. The Organ System/life at risk was Neurological This Patient was in Critical Condition because hypertensive emergency with altered mental status and acute agitation Source: Patient, EMS Exam Limitations: Clinical condition - Medical/Surgical History Hx Asthma: No Hx Chronic Respiratory Disease: No Hx Diabetes: No Hx Cardiac Disease: Yes Hx Renal Disease: No Hx Cirrhosis: No Hx Alcoholism: No Hx HIV/AIDS: No Hx Splenectomy or Spleen Trauma: No Other PMH: renal carcinoma with mets to liver diagnosed 11/2017,rheumatoid arth , afib, dm - poss resolved, hypertension, hyperlipidemia, surg - ruptured intest abcess, colostomy - reversed, hysterectomy, L rotator cuff surg, L knee replace, cataract surg bilat eyes, deg disc disease - Social History Smoking Status: Former smoker Constitutional: Initial Vital Signs Temperature (C) 37.1 C 01/06/18 22:15 Heart Rate 114 H 01/06/18 22:15 Respiratory Rate 20 01/06/18 22:15 Blood Pressure 199/115 H 01/06/18 22:15 O2 Sat (%) 97 01/06/18 22:15 O2 Delivery Mode Nasal Cannula O2 (L/minute) 4 Allergies/Adverse Reactions: cephalexin Allergy (Intermediate, Verified 01/06/18 22:40) Diarrhea ciprofloxacin Allergy (Intermediate, Verified 12/20/17 11:01) Diarrhea Home Medications: Medication Instructions Recorded Cetirizine [ZyrTEC 10 mg (*)] 10 mg PO HS 12/05/17 Cholecalciferol Vit D3 [Vitamin D3 2,000 units PO HS 12/05/17 2000 units tab (OTC)] DULoxetine [Cymbalta 60 MG (*)] 60 mg PO HS 12/05/17 Fluticasone Nasal [Flonase Nasal 2 sprays NASAL DAILY PRN 12/05/17 Fannin] Ranitidine HCl [Zantac] 150 mg PO BID 12/05/17 Verapamil ER [Calan SR/ER 240MG 240 mg PO HS 12/05/17 (*)] Acetaminophen [Tylenol 325mg (*)] 650 mg PO Q4HRS PRN tab 12/08/17 Benzonatate [Tessalon Pearles] 100 mg PO TID PRN #30 cap 12/08/17 oxyCODONE IR [Oxycodone Ir (*)] 5 mg PO Q4 PRN #20 tab 12/08/17 fentaNYL [Duragesic 25 MCG Patch 25 mcg TD Q72H 12/20/17 (*)] traZODone [traZODONE 50MG (*)] 50 mg PO HS 12/20/17 Losartan Potassium [Cozaar 50 mg 100 mg PO HS #30 tab 12/25/17 (*)] Ondansetron Odt [Zofran Odt 4 mg 4 mg PO Q6H PRN #30 tab 12/25/17 (*)] First Mouth Wash 5 ml PO QID PRN 01/07/18 HYDROmorphone HCL [Dilaudid 2 mg 2 mg PO Q3-4PRN PRN 01/07/18 (*)] Nystatin [Mycostatin Cream (RX)] 1 karina TOP BID PRN 01/07/18 Medical Decision Making - Data Points Laboratory Results: Laboratory Results 01/06/18 22:20 01/06/18 22:20 Microbiology Results: MICROBIOLOGY 01/06/18 22:45 Blood Blood Culture - Preliminary 01/06/18 23:50 Blood Blood Culture - Preliminary Medications Given: Cetirizine HCl (Zyrtec) 10 mg PO HS MITESH Stop: 07/07/18 20:59 Last Admin: 01/08/18 21:33 Dose: 10 mg Cholecalciferol (Vitamin D) 2,000 units PO HS MITESH Stop: 07/07/18 20:59 Last Admin: 01/08/18 21:33 Dose: 2,000 units Duloxetine HCl (Cymbalta) 60 mg PO HS MITESH Stop: 07/07/18 20:59 Last Admin: 01/08/18 21:34 Dose: 60 mg Famotidine (Pepcid) 20 mg PO BID MITESH Stop: 07/07/18 20:59 Last Admin: 01/08/18 21:34 Dose: 20 mg Nicardipine/Sodium Chloride (Cardene 0.1 Mg/Ml (Premix)) 200 mls @ 0 mls/hr IV CONT MITESH; Titrate PRN Reason: Protocol Stop: 07/06/18 02:59 Last Admin: 01/07/18 21:49 Dose: 200 mls Losartan Potassium (Cozaar) 100 mg PO HS MITESH Stop: 07/07/18 20:59 Last Admin: 01/08/18 21:33 Dose: 100 mg Trazodone HCl (Trazodone) 50 mg PO HS MITESH Stop: 07/07/18 20:59 Last Admin: 01/08/18 21:34 Dose: 50 mg Verapamil HCl (Calan Sr) 240 mg PO HS MITESH Stop: 07/07/18 20:59 Last Admin: 01/08/18 21:32 Dose: 240 mg Discontinued Medications Fentanyl (Sublimaze) 50 mcg IVP EDNOW ONE Stop: 01/07/18 00:41 Last Admin: 01/07/18 00:42 Dose: 50 mcg Sodium Chloride (Ns) 1,000 mls @ 0 mls/hr IV EDNOW ONE; Wide Open PRN Reason: Protocol Stop: 01/06/18 22:18 Last Admin: 01/06/18 23:01 Dose: 1,000 mls Sodium Chloride (Ns) 1,000 mls @ 0 mls/hr IV ONCE ONE PRN Reason: Wide Open Stop: 01/06/18 23:02 Last Admin: 01/06/18 23:25 Dose: 1,000 mls Nicardipine/Sodium Chloride (Cardene 0.1 Mg/Ml (Premix)) 200 mls @ 0 mls/hr IV CONT MITESH; Titrate PRN Reason: Protocol Stop: 07/05/18 23:29 Last Admin: 01/06/18 23:54 Dose: 200 mls Vancomycin/Sodium Chloride (Vancomycin 1 Gm (Premix)) 250 mls @ 250 mls/hr IV EDNOW ONE PRN Reason: Protocol Stop: 01/07/18 02:10 Last Admin: 01/07/18 01:21 Dose: 250 mls Piperacillin/Tazobactam/Dextrose (Zosyn (Premix)) 100 mls @ 200 mls/hr IV EDNOW ONE PRN Reason: Protocol Stop: 01/07/18 01:40 Last Admin: 01/07/18 01:39 Dose: 100 mls Piperacillin Sod/Tazobactam (Sod 3.375 gm/ Dextrose) 50 mls @ 100 mls/hr IV Q6 ONE Stop: 01/07/18 06:29 Last Admin: 01/07/18 05:21 Dose: 50 mls Piperacillin/Tazobactam/Dextrose (Zosyn 3.375 Gm (Premix)) 50 mls @ 100 mls/hr IV Q6HRS MITESH PRN Reason: Protocol Stop: 01/07/18 17:59 Last Admin: 01/07/18 12:13 Dose: 50 mls Piperacillin Sod/Tazobactam (Sod 3.375 gm/ Dextrose) 50 mls @ 100 mls/hr IV Q6 MITESH Stop: 02/06/18 17:59 Last Admin: 01/08/18 04:55 Dose: 50 mls Lorazepam (Ativan Injection) 1 mg IVP EDNOW ONE Stop: 01/06/18 22:19 Last Admin: 01/06/18 22:30 Dose: 1 mg Lorazepam (Ativan Injection) 1 mg IVP EDNOW ONE Stop: 01/06/18 22:50 Last Admin: 01/06/18 23:01 Dose: 1 mg Midazolam HCl (Versed) 5 mg IVP EDNOW ONE Stop: 01/06/18 23:17 Last Admin: 01/06/18 23:25 Dose: 5 mg Midazolam HCl (Versed) 3 mg IVP EDNOW ONE Stop: 01/07/18 00:01 Last Admin: 01/07/18 00:00 Dose: 3 mg Departure - Departure Disposition: [facility] Acute Clinical Impression: Hypertensive encephalopathy Altered mental state Qualifiers: Altered mental status type: unspecified Qualified Code(s): R41.82 - Altered mental status, unspecified Condition: Critical
[2018-01-06 22:38] LABS: PLATELET COUNT 218 10^3/uL (150-400)
--- NOTE | 2018-01-06 22:46 | CPEKG ---
Heart Rate: 98 RR Interval: 612 P-R Interval: 216 QRSD Interval: 88 QT Interval: 328 QTC Interval: 419 P [place]: 60 QRS [place]: -6 T Wave [place]: 74 EKG Severity - ABNORMAL ECG - EKG Impression: FAST SINUS ARRHYTHMIA, RATE 82-121 EKG Impression: FIRST DEGREE AV BLOCK Electronically Signed By: Zane Escobar 07-Jan-2018 07:18:27
[2018-01-06 22:54] LABS: INR 1.16 (0.83-1.16)
[2018-01-06] MEDS ORDERED: MIDAZOLAM 2 MG/2 ML VIAL IVP ONE (23:16)
[2018-01-06] MEDS ORDERED: niCARdipine/NACL/200 ML BAG IV ONE (23:16)
[2018-01-06] MEDS ORDERED: MIDAZOLAM 2 MG/2 ML VIAL ONE (23:28)
[2018-01-06] MEDS ORDERED: niCARdipine/NACL 200 ML IV SCH (23:30)
[2018-01-06 23:38] LABS: CREATINE KINASE 23 IU/L (0-156)
[2018-01-07] MEDS ORDERED: MIDAZOLAM 2 MG/2 ML VIAL IVP ONE
[2018-01-07] MEDS ORDERED: IOPAMIDOL (ISOVUE-300) 100 ML BTL ONE (00:02)
[2018-01-07] MEDS ORDERED: fentaNYL 100 MCG/2 ML INJ ONE (00:40)
[2018-01-07] MEDS ORDERED: fentaNYL 100 MCG/2 ML INJ IVP ONE (00:40)
[2018-01-07] MEDS ORDERED: VANCOMYCIN HCL/NORMAL SALINE 250 ML IV ONE (01:11)
[2018-01-07] MEDS ORDERED: PIPERACILLIN/TAZO 4.5 GM/DEX 100 ML IV ONE (01:11)
--- NOTE | 2018-01-07 01:11 | CPEKG ---
Heart Rate: 90 RR Interval: 667 P-R Interval: 232 QRSD Interval: 84 QT Interval: 352 QTC Interval: 431 P [place]: 78 QRS [place]: 9 T Wave [place]: 80 EKG Severity - ABNORMAL ECG - EKG Impression: SINUS RHYTHM EKG Impression: FIRST DEGREE AV BLOCK EKG Impression: BORDERLINE ST ELEVATION, INFERIOR LEADS Electronically Signed By: Zane Escobar 07-Jan-2018 07:18:27
[2018-01-07] MEDS ORDERED: ACETAMINOPHEN 325 MG TAB PO PRN (01:24)
[2018-01-07] MEDS ORDERED: ONDANSETRON 4 MG/2 ML VIAL IVP PRN (01:24)
[2018-01-07] MEDS ORDERED: ONDANSETRON DISINTEGRATING 4 MG TAB PO PRN (01:24)
--- NOTE | 2018-01-07 01:55 | PDGENHP ---
History and Physical - Chief Complaint Agitation - History of Present Illness 77 yo F w/ AF and HCC presents with acute onset agitation. Per daughter, patient was doing well this evening watching a movie, eating dinner, and conversing as usual. Around 9 PM the patient went to the bathroom and then acutely began to exhibit erratic behavior. Her speech became slurred and unintelligible, she urinated on a chair, and her movements became erratic and nonsensical. She was alert throughout, no syncope or LOC noted. EMS was called and she was very difficult to transport to the ED due to agitation. In the ED she required significant sedation to undergo diagnostic testing. At the time of my evaluation she continues to have unintelligible speech and constant, non- purposeful movements. She is not following commands or engaging in conversation. Her daughter is at bedside. History Information - Allergies/Home Medication List Allergies/Adverse Reactions: cephalexin Allergy (Intermediate, Verified 01/06/18 22:40) Diarrhea ciprofloxacin Allergy (Intermediate, Verified 12/20/17 11:01) Diarrhea Home Medications: Cetirizine [ZyrTEC 10 mg (*)] 10 mg PO HS 12/05/17 [Last Taken 12/19/17] Cholecalciferol Vit D3 [Vitamin D3 2000 units tab (OTC)] 2,000 units PO HS 12/05 [Last Taken 12/19/17] DULoxetine [Cymbalta 60 MG (*)] 60 mg PO HS 12/05/17 [Last Taken 12/19/17] Fluticasone Nasal [Flonase Nasal Clifford] 2 sprays NASAL DAILY PRN 12/05/17 [Last Taken Unknown] Ranitidine HCl [Zantac] 150 mg PO BID 12/05/17 [Last Taken 12/19/17] Verapamil ER [Calan SR/ER 240MG (*)] 240 mg PO HS 12/05/17 [Last Taken 12/19/17] fentaNYL [Duragesic 25 MCG Patch (*)] 25 mcg TD Q72H 12/20/17 [Last Taken ] inFLIXimab [Remicade Inj 100 mg (*)] 400 mg IV .H2AMHFP 12/20/17 [Last Taken Unknown] traZODone [traZODONE 50MG (*)] 50 mg PO HS 12/20/17 [Last Taken 12/19/17] I have personally reviewed and updated: family history, medical history - Past Medical History atrial fibrillation (Diagnosis several years ago, had a stress test at that time ) Additional medical history: Rheumatoid arthritis, last dose of Remicade 2017, currently well controlled. Chronic nocturia. Chronic sinus congestion. Hypertension. Hyperlipidemia. Diabetes mellitus type 2. Hepatocellular carcinoma, possible renal cell carcinoma - Surgical History Additional surgical history: Knee surgery, shoulder surgery, recent liver biopsy - Family History Additional family history: Second-degree relative with colon cancer, sibling with testicular cancer - Social History Smoking Status: Former smoker Additional social history: Resides in [place], does not have a formal exercise routine at baseline, currently residing with her daughter locally Review of Systems Review of Systems: ROS: 10pt was reviewed & negative except for what was stated in HPI & below Physical Exam Physical Exam: Temp Pulse Resp BP Pulse Ox 37.3 C 90 19 164/59 H 92 01/06/18 23:55 01/07/18 01:42 01/07/18 01:42 01/07/18 01:42 01/07/18 01:42 O2 (L/minute) 4 Constitutional: uncomfortable, other (Confused, agitated) Eyes: PERRL, anicteric sclera Ears, Nose, Mouth, Throat: moist mucous membranes, no oral mucosal ulcers Cardiovascular: regular rate and rhythym, systolic murmur Respiratory: no respiratory distress, other (Exam limited due to patient cooperation) Gastrointestinal: normoactive bowel sounds, No rebound, No distension Skin: warm, normal color Neurologic: other (Alert but not oriented to self), No facial droop Psychiatric: encephalopathic, agitated Lab Data & Imaging Review 01/06/18 22:20 01/06/18 22:20 WBC 9.52 10^3/uL (3.80-9.50) H 01/06/18 22:20 RBC 4.67 10^6/uL (4.18-5.33) 01/06/18 22:20 Hgb 13.4 g/dL (12.6-16.3) 01/06/18 22:20 Hct 40.3 % (38.0-47.0) 01/06/18 22:20 MCV 86.3 fL (81.5-99.8) 01/06/18 22:20 MCH 28.7 pg (27.9-34.1) 01/06/18 22:20 MCHC 33.3 g/dL (32.4-36.7) 01/06/18 22:20 RDW 14.5 % (11.5-15.2) 01/06/18 22:20 Plt Count 218 10^3/uL (150-400) 01/06/18 22:20 MPV 9.5 fL (8.7-11.7) 01/06/18 22:20 Neut % (Auto) 51.3 % (39.3-74.2) 01/06/18 22:20 Lymph % (Auto) 41.4 % (15.0-45.0) 01/06/18 22:20 [place] % (Auto) 6.2 % (4.5-13.0) 01/06/18 22:20 Eos % (Auto) 0.7 % (0.6-7.6) 01/06/18 22:20 Baso % (Auto) 0.2 % (0.3-1.7) L 01/06/18 22:20 Nucleat RBC Rel Count 0.0 % (0.0-0.2) 01/06/18 22:20 Absolute Neuts (auto) 4.88 10^3/uL (1.70-6.50) 01/06/18 22:20 Absolute Lymphs (auto) 3.94 10^3/uL (1.00-3.00) H 01/06/18 22:20 Absolute Monos (auto) 0.59 10^3/uL (0.30-0.80) 01/06/18 22:20 Absolute Eos (auto) 0.07 10^3/uL (0.03-0.40) 01/06/18 22:20 Absolute Basos (auto) 0.02 10^3/uL (0.02-0.10) 01/06/18 22:20 Absolute Nucleated RBC 0.00 10^3/uL (0-0.01) 01/06/18 22:20 Immature Gran % 0.2 % (0.0-1.1) 01/06/18 22:20 Immature Gran # 0.02 10^3/uL (0.00-0.10) 01/06/18 22:20 PT 15.0 SEC (12.0-15.0) 01/06/18 22:20 INR 1.16 (0.83-1.16) 01/06/18 22:20 APTT 37.1 SEC (23.0-38.0) 01/06/18 22:20 Puncture Site LEFT RADIAL 01/07/18 01:06 Patient Temperature 37.0 DEGREES 01/07/18 01:06 pCO2 48 mmHg (34-38) H 01/07/18 01:06 pO2 76 mmHg (65-75) H 01/07/18 01:06 Total CO2 26 mEq/L (23-27) 01/07/18 01:06 ABG pH 7.34 (7.35-7.45) L 01/07/18 01:06 ABG HCO3 25 mEq/L (22-26) 01/07/18 01:06 ABG O2 Saturation 94 % (92-95) 01/07/18 01:06 ABG Base Excess -1.0 mEq/L (-2.5-2.5) 01/07/18 01:06 VBG Lactic Acid 1.4 mmol/L (0.7-2.1) D 01/07/18 00:35 Total O2 Concentration 4.0 LITERS 01/07/18 01:06 Sodium 134 mEq/L (135-145) L 01/06/18 22:20 Potassium 4.2 mEq/L (3.3-5.0) 01/06/18 22:20 Chloride 102 mEq/L (97-110) 01/06/18 22:20 Carbon Dioxide 18 mEq/l (22-31) L 01/06/18 22:20 Anion Gap 14 mEq/L (8-16) 01/06/18 22:20 BUN 10 mg/dL (7-23) 01/06/18 22:20 Creatinine 0.8 mg/dL (0.6-1.0) 01/06/18 22:20 Estimated GFR > 60 01/06/18 22:20 Glucose 147 mg/dL (70-100) H 01/06/18 22:20 Calcium 9.8 mg/dL (8.5-10.4) 01/06/18 22:20 Magnesium 1.8 mg/dL (1.6-2.3) 01/06/18 22:20 Total Bilirubin 1.2 mg/dL (0.1-1.4) 01/06/18 22:20 Conjugated Bilirubin 0.6 mg/dL (0.0-0.5) H 01/06/18 22:20 Unconjugated Bilirubin 0.6 mg/dL (0.0-1.1) 01/06/18 22:20 AST 71 IU/L (14-46) H 01/06/18 22:20 ALT 54 IU/L (9-52) H 01/06/18 22:20 Alkaline Phosphatase 149 IU/L (38-126) H 01/06/18 22:20 Ammonia 13.0 uMOL/L (9.0-30.0) 01/06/18 22:45 Creatine Kinase 23 IU/L (0-156) 01/06/18 22:20 CK-MB (CK-2) Fraction 1.02 ng/mL (0.00-4.55) 01/06/18 22:20 Troponin I 0.013 ng/mL (0.000-0.034) 01/06/18 22:20 NT-Pro-B Natriuret Pep 1310 pg/mL (0-450) H 01/06/18 22:20 Total Protein 9.3 g/dL (6.3-8.2) H 01/06/18 22:20 Albumin 3.3 g/dL (3.5-5.0) L 01/06/18 22:20 Urine Color YELLOW 01/06/18 22:35 Urine Appearance CLEAR 01/06/18 22:35 Urine pH 6.0 (5.0-7.5) 01/06/18 22:35 Ur Specific [place] 1.010 (1.002-1.030) 01/06/18 22:35 Urine Protein 2+ (NEGATIVE) H 01/06/18 22:35 Urine Ketones NEGATIVE (NEGATIVE) 01/06/18: Urine Blood 3+ (NEGATIVE) H 01/06/18 22:35 Urine Nitrate NEGATIVE (NEGATIVE) 01/06/18 22:35 Urine Bilirubin NEGATIVE (NEGATIVE) 01/06/18 22:35 Urine Urobilinogen 4.0 EU (0.2-1.0) H 01/06/18 22:35 Ur Leukocyte Esterase NEGATIVE (NEGATIVE) 05/24/18 22:35 Urine RBC 50-182 /hpf (0-3) H 01/06/18 22:35 Urine WBC 1-3 /hpf (0-3) 01/06/18 22:35 Ur Epithelial Cells TRACE /lpf (NONE-1+) 01/06/18 22:35 Urine Mucus TRACE /lpf (NONE-1+) 01/06/18 22:35 Urine Glucose NEGATIVE (NEGATIVE) 01/06/18 22:35 Urine Opiates Screen NON-NEGATIVE (NEGATIVE) H 01/06/18 22:35 Urine Barbiturates NEGATIVE (NEGATIVE) 01/06/18 22:35 Ur Phencyclidine Scrn NEGATIVE (NEGATIVE) 01/06/18 22:35 Ur Amphetamine Screen NEGATIVE (NEGATIVE) 01/06/18 22:35 U Benzodiazepines Scrn NEGATIVE (NEGATIVE) 01/06/18 22:35 Urine Cocaine Screen NEGATIVE (NEGATIVE) 01/06/18 22:35 U Marijuana (THC) Screen NEGATIVE (NEGATIVE) 01/06/18 22:35 Ethyl Alcohol < 10 mg/dL (0-10) 01/06/18 22:20 Imaging Review: Imaging Impressions Chest X-Ray 01/06/18 22:17 Impression: Hypoventilatory features with bilateral midlung diskoid subsegmental atelectasis, mild cardiomegaly, and mild pulmonary venous congestion. Head CT 01/06/18 22:17 Impression: Senescent features, with no acute intracranial abnormality identified on this unenhanced CT evaluation. If there is further clinical concern regarding the patient's symptoms, MR imaging is suggested, if not otherwise contraindicated. Findings were discussed with Zane Escobar MD at 23:47, on 01/06/2018. Abdomen X-Ray 01/06/18 23:42 Impression: 1. History of hepatic embolization. 2. Nonspecific bowel gas pattern. Abdomen CT 01/06/18 23:48 Impression: 1. Because of pronounced breathing artifact, there is inadequate evaluation of the peripheral subsegmental pulmonary arteries the presence of thromboemboli. The main pulmonary arteries however appear patent. 2. Interval development of apparent thickening of the [id number] thoracic esophagus, which could represent some retained ingested debris or be related to esophagitis and GERD. Within the context of mild airspace disease seen bilaterally, could the patient have aspirated? 3. Heterogeneous enlarged appearance of the right lobe of the thyroid gland. When clinically feasible, correlation with serum thyroid function tests and sonography is suggested. Contrast Enhanced CT Scan of the Abdomen and Pelvis: Liver: This is enlarged (and seen in association with elevation of the right hemidiaphragm), and since the previous studies there is now beam hardening artifact associated with metallic embolization coils in the upper right hepatic lobe, and there has been development of tumoral necrosis involving the caudal right hepatic lobe with areas of heterogeneous enhancement and retention of some intraparenchymal hemorrhagic and/or seromatous components. On series 6, images 77-81, there appear to be a couple of dots of air in the anterior inferior right hepatic lobe, and it is unclear if this is related to the prior Y 90 particle administration, or could represent early evidence of infection ( the patient reportedly is not febrile, and does not have a significantly elevated white blood cell count according to Dr. Escobar). Since the previous study on 12/20/2017, there has been coagulation of blood along the caudal portion of the right hepatic lobe (compare current Hounsfield unit measurement of 42, with a previous Hounsfield unit measurement of 74). Bile Ducts: Stable. The common bile duct at the level of the pancreatic head measures 7 mm. Gallbladder: The gallbladder is moderately distended, and there are no calcified gallstones. There is trace pericholecystic fluid and some minimal wall thickening however this is seen adjacent to the aforementioned inferior right hepatic lobe chronic hemorrhagic and tumoral necrotic features. Pancreas: Negative. Spleen: Negative. Adrenal Glands: Normal. Kidneys/Ureters/Urinary Bladder: There is a persistent abnormally enhancing cystic renal mass associated with the lateral mid-lower interpolar junction of the left kidney, measuring 2.6 x 2.2 x 2.8 cm, highly concerning for a renal cell carcinoma. There is no evidence of hydronephrosis. There is a small extrarenal pelvis associated with the right kidney. GI Tract: The stomach is distended, with an air-fluid level present, and there is some mild narrowing of the second portion of the duodenum (adjacent to tumoral involvement of the inferior right hepatic lobe). There is a small hiatal hernia present. The jejunum and ileum appear normal. There is mild constipation and mild colonic diverticulosis. Retroperitoneum: There is no new adenopathy along the aortoiliac vascular tree. Mesentery/Omentum/Peritoneum: There is no evidence of pneumoperitoneum. There is some residual though diminishing complex free fluid seen in the lower right hemipelvis on series 6, image 245. There is no omental caking, or peritoneal nodule identified. Vessels: The abdominal aorta is normal in size, and tapers normally. There is some atherosclerotic features and calcification associated with the aorta. The IVC is normal in caliber. The splenic vein, superior mesenteric vein, and the main portal vein are patent. Reproductive Organs: The uterus is absent. There is no adnexal mass. Abdominal Wall: There is an infraumbilical midline incisional scar. Osseous Structures: There are degenerative features throughout the lower thoracic and lumbar spine with a mild levolumbar scoliosis. There is no aggressive osseous lesion identified. Impression: 1. Post-embolization appearance to the upper and lower right hepatic lobe, with evolution of previously-seen hemorrhagic debris associated with the heterogeneous bilobed tumor. There are a couple of dots of air along the anterior inferior portion of the right hepatic tumor, and it is not clear if this appearance could be related to the prior Y 90 particle infusion, or could represent early evidence of infection. 2. Stable appearance of a heterogeneously-enhancing cystic lesion in the left kidney, highly suspicious of a renal cell carcinoma. 3. Distended fluid-filled stomach with small hiatal hernia and some mild narrowing and thickening of the descending portion of the duodenum adjacent to the right hepatic lobe. 4. Persistent though slightly diminishing complex fluid in the caudal right hemipelvis, and apparent organization/coagulation of previously-seen acute hemorrhage caudal to the right hepatic lobe (as noted on 12/20/2017). Findings were discussed with Zane Escobar MD at 1:08 AM, on 01/07/2018. Chest CT 01/06/18 23:48 Impression: 1. Because of pronounced breathing artifact, there is inadequate evaluation of the peripheral subsegmental pulmonary arteries the presence of thromboemboli. The main pulmonary arteries however appear patent. 2. Interval development of apparent thickening of the [id number] thoracic esophagus, which could represent some retained ingested debris or be related to esophagitis and GERD. Within the context of mild airspace disease seen bilaterally, could the patient have aspirated? 3. Heterogeneous enlarged appearance of the right lobe of the thyroid gland. When clinically feasible, correlation with serum thyroid function tests and sonography is suggested. Contrast Enhanced CT Scan of the Abdomen and Pelvis: Liver: This is enlarged (and seen in association with elevation of the right hemidiaphragm), and since the previous studies there is now beam hardening artifact associated with metallic embolization coils in the upper right hepatic lobe, and there has been development of tumoral necrosis involving the caudal right hepatic lobe with areas of heterogeneous enhancement and retention of some intraparenchymal hemorrhagic and/or seromatous components. On series 6, images 77-81, there appear to be a couple of dots of air in the anterior inferior right hepatic lobe, and it is unclear if this is related to the prior Y 90 particle administration, or could represent early evidence of infection ( the patient reportedly is not febrile, and does not have a significantly elevated white blood cell count according to Dr. Escobar). Since the previous study on 12/20/2017, there has been coagulation of blood along the caudal portion of the right hepatic lobe (compare current Hounsfield unit measurement of 42, with a previous Hounsfield unit measurement of 74). Bile Ducts: Stable. The common bile duct at the level of the pancreatic head measures 7 mm. Gallbladder: The gallbladder is moderately distended, and there are no calcified gallstones. There is trace pericholecystic fluid and some minimal wall thickening however this is seen adjacent to the aforementioned inferior right hepatic lobe chronic hemorrhagic and tumoral necrotic features. Pancreas: Negative. Spleen: Negative. Adrenal Glands: Normal. Kidneys/Ureters/Urinary Bladder: There is a persistent abnormally enhancing cystic renal mass associated with the lateral mid-lower interpolar junction of the left kidney, measuring 2.6 x 2.2 x 2.8 cm, highly concerning for a renal cell carcinoma. There is no evidence of hydronephrosis. There is a small extrarenal pelvis associated with the right kidney. GI Tract: The stomach is distended, with an air-fluid level present, and there is some mild narrowing of the second portion of the duodenum (adjacent to tumoral involvement of the inferior right hepatic lobe). There is a small hiatal hernia present. The jejunum and ileum appear normal. There is mild constipation and mild colonic diverticulosis. Retroperitoneum: There is no new adenopathy along the aortoiliac vascular tree. Mesentery/Omentum/Peritoneum: There is no evidence of pneumoperitoneum. There is some residual though diminishing complex free fluid seen in the lower right hemipelvis on series 6, image 245. There is no omental caking, or peritoneal nodule identified. Vessels: The abdominal aorta is normal in size, and tapers normally. There is some atherosclerotic features and calcification associated with the aorta. The IVC is normal in caliber. The splenic vein, superior mesenteric vein, and the main portal vein are patent. Reproductive Organs: The uterus is absent. There is no adnexal mass. Abdominal Wall: There is an infraumbilical midline incisional scar. Osseous Structures: There are degenerative features throughout the lower thoracic and lumbar spine with a mild levolumbar scoliosis. There is no aggressive osseous lesion identified. Impression: 1. Post-embolization appearance to the upper and lower right hepatic lobe, with evolution of previously-seen hemorrhagic debris associated with the heterogeneous bilobed tumor. There are a couple of dots of air along the anterior inferior portion of the right hepatic tumor, and it is not clear if this appearance could be related to the prior Y 90 particle infusion, or could represent early evidence of infection. 2. Stable appearance of a heterogeneously-enhancing cystic lesion in the left kidney, highly suspicious of a renal cell carcinoma. 3. Distended fluid-filled stomach with small hiatal hernia and some mild narrowing and thickening of the descending portion of the duodenum adjacent to the right hepatic lobe. 4. Persistent though slightly diminishing complex fluid in the caudal right hemipelvis, and apparent organization/coagulation of previously-seen acute hemorrhage caudal to the right hepatic lobe (as noted on 12/20/2017). Findings were discussed with Zane Escobar MD at 1:08 AM, on 01/07/2018. Visualized and Interpreted Chest x-ray results: Yes Chest X-Ray results: no infiltrate Visualized and Interpreted EKG results: Yes EKG Interpretation: Positive for: normal sinsus rhythm, NS ST wave abnormalities , other (1st degree AV block) Assessment & Plan Assessment: 77 yo F w/ AF and HCC p/w acute encephalopathy. Plan: 1. Acute encephalopathy - Unclear etiology; daughter describes very acute onset progressing from baseline mental status to agitated, disoriented, and nonsensical in a matter of minutes around 9 PM. She remains agitated and disoriented at this time. Broad work-up not entirely revealing of etiology: considerations include PRES (SBP 220 initially), infection (early air formation around hepatic tumor, possible aspiration), neurologic (seizure, stroke), and paraneoplastic (HCC, ?RCC). - Admit to ICU for close monitoring - S/p Vancomycin, Zosyn in ED, will continue and await blood culture results - On nicardipine gtt for BP control noting possibility of PRES - Neurology consult placed - Would benefit from MRI once able to cooperate with exam 2. HCC - With recent subcapsular bleeding complication requiring admission and transfusions, discharged on 12/25/17 with cessation of therapeutic anticoagulation. CT on admission reveals early gas formation around tumor of unclear significance. On sorafenib as outpatient. - Non-urgent Oncology consult 3. Hypertensive urgency/emergency - SBP 220 upon arrival of EMS. Concern for PRES noting presentation. - Nicardipine gtt for now - MRI when able 4. AF - In NSR on admission, holding AC after hepatic bleeding complication earlier in December. 5. Lactic acidosis - Resolved with IVF. 6. Abnormal LFTs - Most likely 2/2 HCC, fairly stable compared to prior. - Monitor CMP 7. Suspected RCC - Per imaging findings, recommend outpatient follow-up. 8. Hematuria - Likely related to above. Diet - NPO Code - Full per discussion with patient's daughter Ppx - SCDs I personally spent 60 minutes of critical care time evaluation patient, interpreting data, and coordinating care. I discussed the case with ED physician Dr. Fischer.
[2018-01-07] MEDS: niCARdipine/NACL 200 ML IV SCH ×6 (03:11→21:49)
[2018-01-07 05:23] LABS: PLATELET COUNT 161 10^3/uL (150-400)
[2018-01-07] MEDS ORDERED: ALTEPLASE 2 MG VIAL IVP PRN ×2 (05:25→10:11)
[2018-01-07] MEDS ORDERED: PIPERACILLIN/TAZO 3.375 GM/DEX 50 ML IV SCH ×2 (06:00→12:00)
[2018-01-07] MEDS ORDERED: PIPERACILLIN SODIUM/TAZOBACTAM 3.375 GM in D5W 50 ML IV ONE (06:00)
--- NOTE | 2018-01-07 09:31 | PDMN ---
Medical Necessity Medical necessity: Pt meets IP criteria per MD; est los >2 mn for eval/tx of hypertensive urgency & acute encephalopathy; admit to ICU for further workup/ close monitoring, IV abx, IV Nicardipine, Neurology/Oncology consults & therapy ; hx hepatocellular carcinoma w/recent hospitalization for subcapsular bleeding complication, possible renal carcinoma, AFIB, rheumatoid arthritis, HTN, diabetes; per H&P & order 01/07/18
--- NOTE | 2018-01-07 10:04 | NEUROPROG ---
Assessment: [id number] - Neurology Consult: - CC: Dr. Frausto consulted neurology for confusion. Results placed in EMR for his review. - HPI: Pt with prior history of afib (not on anticoagulation due to prior GI bleed), hepatocellar cancer, DM2, and rheumatoid arthritis. The patient became abruptly agitated, confused, and slurred her speech at 9 pm on 01/06/18 so EMS was called and she was brought to [facility]. Blood pressure was elevated to [address] showed no acute changes but chest CT showed possible infection of liver. She also has a liver tumor and a renal tumor. I initially saw the patient on 01/07/18. She had received some sedation in the ER and was somnolent. She would not answer questions or respond to commands. The nurse was planning on taking her very soon for brain MRI w/ and w/o con which appeared to be the next appropriate step. - PMHx: afib, RA, nocturia, HTN, HLD, DM2, hepatocellular carcinoma, possible renal carcinoma - Home Meds: zyrtec, Vit D, cymbalta, zantac, verapamil ER, fentanyl, remicade, trazodone - SHx: former tobacco user FHx: cancer - ROS: Pt denied acute fever, total vision loss, active severe chest pain, respiratory failure, total body severe rash, total bowel/bladder incontinence, psychosis, active seizures, or active bleeding - O: VS reviewed General: obtunded Eyes: Fundoscopic exam not able to visualize optic disks CV: Heart RRR, no murmur, no carotid bruit Lungs: Clear to auscultation bilaterally, no rhonchi or rales Neuro: - Mental: pt lying in bed obtunded, not following any commands or opening eyes - Cranial Nerves:no clear abnormalities noted but exam limited - Motor/Sensory exam: pt with normal tone, no clear response to pain but she had recently received sedation - Reflexes: B/L bic 2/4 - Coord: no abnormalities noted - Gait: deferred - Labs: 01/06/18- CBC WBC 9.52H, coags wnl, CMP Na 134L CO2 18L GLuc 147H AST 71H ALT 54H Alk Phos 149H Alb 3.3L, Ammonia 13, UA w/neg LE and nitrate, UTox +opiates - Rads: 01/06/18- Head CT: no acute intracranial abnormalities (I personally visualized the images on 01/07/18) - Assessment: 1. Acute encephalopathy on 01/07/18: Initial evaluation from a neurology perspective is obtaining a brain MRI w/ and w/o con to assess for any structural brain cause to explain her confusion. She has possible liver infection, liver tumor, renal tumor, and is on multiple medications all of which may be involved in acute encephalopathy as well. - Plan: - Brain MRI w/ and w/o con to assess for cause of abrupt confusion Objective: Vital Signs Temp Pulse Resp BP Pulse Ox 36.9 C 74 16 124/62 H 95 01/07/18 03:45 01/07/18 06:30 01/07/18 06:30 01/07/18 09:47 01/07/18 06:30 Laboratory Results 01/07/18 05:05 01/07/18 05:05 01/06/18 01/07/18 01/08/18 05:59 05:59 05:59 Intake Total 1600 Output Total 450 Balance 1600 -450 PT 15.0 SEC (12.0-15.0) 01/06/18 22:20 INR 1.16 (0.83-1.16) 01/06/18 22:20 Allergies/Adverse Reactions: cephalexin Allergy (Intermediate, Verified 01/06/18 22:40) Diarrhea ciprofloxacin Allergy (Intermediate, Verified 12/20/17 11:01) Diarrhea
--- NOTE | 2018-01-07 13:48 | WOCRNPDOC ---
WOCRN Advanced Assessment Note - Skin Integrity Problem, Advanced Assess Sacrum Pressure Injury Dressing Type: Open to Air Integumentary Issue Intervention: Dressing Applied, Hydrogel Applied Khadijah Wound Tissue: Erythema, Denuded Wound Bed Color: Red Wound Bed Constitution: Red/[place] - Non Granular Tissue Site Measurement - Head-to-Toe Length X Width X Depth (cm): 0.9x0.7x0.1 stage 2 within larger area of blanching erythema 12x7x0 Pressure Injury Stage: Stage 2 Pressure Injury Present on Admit: Yes Skin Integrity Problem Comment: Patient was encephalopathic and unable to follow commands for turns. RN Marilyn in room for consult. Large erythemic area with smaller pressure injury with friction component. Wound gel applied and mepilex sacral dressing placed. TAPS initiated. Wound care will round next week. Left Heel Deep Tissue Injury Dressing Type: Open to Air Khadijah Wound Tissue: Blanching Site Measurement - Head-to-Toe Length X Width X Depth (cm): 1.3x1.9x0 (intact DTI) Pressure Injury Stage: Deep Tissue Injury (DTI) Pressure Injury Present on Admit: Yes Skin Integrity Problem Comment: Likely DTI to patient's heel. Heels were not offloaded upon entering room. Pillow placed for heel offloading. RN to notify Wound Care if wound opens.
--- NOTE | 2018-01-07 13:57 | HOSPPROG ---
Hospitalist Progress Note Objective: Vital Signs Temp Pulse Resp BP Pulse Ox 36.9 C 58 L 14 106/39 L 95 01/07/18 03:45 01/07/18 13:02 01/07/18 13:02 01/07/18 13:36 01/07/18 13:02 Laboratory Results 01/07/18 05:05 01/07/18 05:05 01/06/18 01/07/18 01/08/18 05:59 05:59 05:59 Intake Total 1600 Output Total 450 Balance 1600 -450 PT 15.0 SEC (12.0-15.0) 01/06/18 22:20 INR 1.16 (0.83-1.16) 01/06/18 22:20 ICD10 Worksheet Patient Problems: Problems Problem Status Onset Dyspnea Acute Hypoxia Acute Leukocytosis Acute Hepatocellular carcinoma Acute Subcapsular hemorrhage of liver Acute Hypertensive encephalopathy Acute Altered mental state Acute
--- NOTE | 2018-01-07 14:11 | HOSPPROG ---
Hospitalist Progress Note Assessment/Plan: 77 yo F w/ AF and HCC p/w acute encephalopathy. Plan: 1. Acute encephalopathy - Unclear etiology; daughter describes very acute onset progressing from baseline mental status to agitated, disoriented, and nonsensical in a matter of minutes around 9 PM. She remains agitated and disoriented at this time. Broad work-up not entirely revealing of etiology: considerations include PRES (SBP 220 initially), infection (early air formation around hepatic tumor, possible aspiration), neurologic (seizure, stroke), and paraneoplastic (HCC, ?RCC). - Admit to ICU for close monitoring dc abx given no clear infectious source - On nicardipine gtt for BP control noting possibility of PRES - Neurology consult placed - MRI w/wo 2. HCC - With recent subcapsular bleeding complication requiring admission and transfusions, discharged on 12/25/17 with cessation of therapeutic anticoagulation. CT on admission reveals early gas formation around tumor of unclear significance. On sorafenib as outpatient. - Non-urgent Oncology consult 3. Hypertensive urgency/emergency - SBP 220 upon arrival of EMS. Concern for PRES noting presentation. - Nicardipine gtt for now - MRI when able 4. AF - In NSR on admission, holding AC after hepatic bleeding complication earlier in December. 5. Lactic acidosis - Resolved with IVF. 6. Abnormal LFTs - Most likely 2/2 HCC, fairly stable compared to prior. - Monitor CMP 7. Suspected RCC - Per imaging findings, recommend outpatient follow-up. 8. Hematuria - Likely related to above. Diet - NPO Code - Full per discussion with patient's daughter Ppx - SCDs Subjective: patient very somnolent, not verbally interactive Objective: Vital Signs Temp Pulse Resp BP Pulse Ox 36.9 C 57 L 19 130/38 H 93 01/07/18 03:45 01/07/18 14:00 01/07/18 14:00 01/07/18 14:00 01/07/18 14:00 Laboratory Results 01/07/18 05:05 01/07/18 05:05 01/06/18 01/07/18 01/08/18 05:59 05:59 05:59 Intake Total 1600 Output Total 450 Balance 1600 -450 PT 15.0 SEC (12.0-15.0) 01/06/18 22:20 INR 1.16 (0.83-1.16) 01/06/18 22:20 somnolent, moves spontaneously anicteric poor dentition rrr no mrg cta to ant exam obese soft nt no cce warm dry well perfused not responsive ICD10 Worksheet Patient Problems: Problems Problem Status Onset Dyspnea Acute Hypoxia Acute Leukocytosis Acute Hepatocellular carcinoma Acute Subcapsular hemorrhage of liver Acute Hypertensive encephalopathy Acute Altered mental state Acute
--- NOTE | 2018-01-07 14:14 | GCON ---
[f rep st] CONSULTATION CRITICAL CARE CONSULTATION DATE OF CONSULTATION: 01/07/2018 HISTORY OF PRESENT ILLNESS: This patient is a 77-year-old female with a known history of hepatocellu lar carcinoma and probably known renal cell carcinoma, who underwent recent embolization without comp lication that I am aware of. She was in her usual state of health and presented with acute onset of confusion and agitation, according to her daughter. She was brought to the emergency department, fou nd to have a blood pressure of 220 systolic, and was given some sedation for imaging studies, none of which provided a satisfactory answer for her acute confusional state. Nonetheless, she was brought to the intensive care unit, where she remained quite somnolent at that time and unable to answer any further questions. REVIEW OF SYSTEMS: Otherwise unremarkable. PAST MEDICAL HISTORY: Includes: 1. Atrial fibrillation. 2. Rheumatoid arthritis. 3. Chronic nocturia. 4. Hypertension. 5. Chronic sinusitis. 6. Hyperlipidemia. 7. Diabetes. 8. Hepatocellular carcinoma. PAST SURGICAL HISTORY: Includes knee surgery, shoulder surgery, and liver biopsy embolization as chloe cribed. SOCIAL HISTORY: She is a former smoker. No significant alcohol or IV drug use. FAMILY HISTORY: Noncontributory. MEDICATIONS: At this time include nicardipine drip, Zofran, Zosyn, fentanyl, Ativan p.r.n., Versed p .r.n.. PHYSICAL EXAMINATION: VITAL SIGNS: She was afebrile. Her blood pressure was 124/62, heart rate of 74, respirations 16, oxygen saturation 95% on 4 L. She was somnolent and did not answer questions, b ut did withdraw to pain. HEENT: Pupils were equally round and reactive to light, nonicteric and non injected. Mucous membranes appeared to be moist. NECK: Supple, without adenopathy or jugular vein distention. LUNGS: Breath sounds were distant, but clear to auscultation bilaterally, without wheez e or rales. HEART: Regular rate and rhythm, without murmurs, rubs, or gallops. ABDOMEN: Soft, non tender, nondistended, without hepatosplenomegaly. EXTREMITIES: No clubbing, cyanosis, or edema. NE UROLOGIC: Other than her somnolence, her neurological exam was nonfocal. SKIN: Warm and dry, witho ut evidence of rash. Objective data includes a CT scan of her chest, abdomen and pelvis, showing no major pathology, inclu ding lack of proximal pulmonary embolism. There are also some changes in her liver related to her re cent embolism procedure. LABORATORY DATA: Her white count was unremarkable on admission at 9.5, hematocrit 40, platelets 218. INR was normal. Blood gas showed pH 7.34, pCO2 48, pO2 76, bicarb of 25, sat of 94% on 4 L. Basic metabolic panel was unremarkable. AST and ALT were slightly elevated at 71 and 54, with an alkaline phosphatase of 149. These have essentially normalized today. Her troponin was negative, and BNP wa s 1310. Albumin 3.3. Urinalysis showed some blood, but was otherwise negative. Toxicology screen s howed opiates, but no alcohol or other drugs. ASSESSMENT/PLAN: 1. Acute onset mental status changes, difficult to know exactly what was driving this. The posterio r reversible encephalopathy syndrome typically is somnolence and not agitation, but certainly could i nvolve those features. An MRI is planned that will help determine whether there is PRES involved or stroke. Her head CT was, in fact, negative for this problem. Hepatic encephalopathy would also be u nusual to present in an agitation fashion. Infection seems very unlikely since she is afebrile, has no significant white count. Cultures are pending. UA was negative. CT was essentially negative, an d there is no evidence of clinical meningitis. Metastatic disease, I would expect to show up on a CT scan, but an MRI may be necessary. There was no evidence of hypoglycemia, no arrhythmias, and no ob vious seizures. I do not think there is an active infection. I think discontinuing the antibiotics would be worthwhile at this time. 2. Hypertension. In the meantime, I would keep her blood pressure with a systolic less than 160, us ing the nicardipine drip. 3. Atrial fibrillation. She seems to be in sinus rhythm right now. She probably has paroxysmal dis ease. A total of 35 minutes of critical care time was required for this patient. /[id number]/MODL
--- NOTE | 2018-01-07 14:20 | ASMTCASEMG ---
Living Arrangements What is your living Answers: With Child(roxanna) arrangement? Who do you live with? Type Of Residence What kind of residence do Answers: House you live in? Discharge Plan Comments Coordination Status Comments Notes: Patient is a 77yo female who is currently living with her daughter here in [place]. She resides in [place] but currently staying locally with her daughter. Patient has a prior hx of afib, hepatocellar cancer, DM2, and rheumatoid arthritis. Patient became abruptly agitated, confused and slurred speech at 9PM on 01-06-18. Patient also has a liver tumor and renal tumor. Patient was admitted for acute encephalopathy, HCC, hypertensive emergency, lactic acidosis, abnormal LFT's, suspected RCC and Hematuria. Obstetrician And Gynaecologist ordered and wound care. D/C plan TBD. CM will follow. Date Signed: 01/07/2018 02:19 PM Electronically Signed By:Shauna Jeffries LCSW
[2018-01-07] MEDS: PIPERACILLIN SODIUM/TAZOBACTAM 3.375 GM in D5W 50 ML IV SCH (17:52)
[2018-01-07] MEDS ORDERED: GADOBUTROL 10 ML VIAL IVP ONE (18:38)
[2018-01-08] MEDS: PIPERACILLIN SODIUM/TAZOBACTAM 3.375 GM in D5W 50 ML IV SCH ×2 (00:04→04:55)
--- NOTE | 2018-01-08 13:03 | NEUROPROG ---
Assessment: [id number] - Neurology Consult: - CC: F/U for encephalopathy - Narrative Summary: Pt with prior history of afib (not on anticoagulation due to prior GI bleed), hepatocellular cancer, DM2, and rheumatoid arthritis. The patient became abruptly agitated, confused, and slurred her speech at 9 pm on 01/06/18 so EMS was called and she was brought to [facility]. Blood pressure was elevated to [address] showed no acute changes but chest CT showed possible infection of liver. She also has a liver tumor and a renal tumor. I initially saw the patient on 01/07/18. She had received some sedation in the ER and was somnolent. She would not answer questions or respond to commands. The nurse was planning on taking her very soon for brain MRI w/ and w/o con which appeared to be the next appropriate step. - HPI: F/U 01/08/18. The brain MRI w/ and w/o con was unremarkable. Pt much improved today. She is somnolent but able to attend and answer questions. Oriented x person/place/date and neurologic exam shows no focal neurologic deficits. Pts daughter is at bedside and reported she is doing much better. - PMHx: afib, RA, nocturia, HTN, HLD, DM2, hepatocellular carcinoma, possible renal carcinoma - Home Meds: zyrtec, Vit D, cymbalta, zantac, verapamil ER, fentanyl, remicade, trazodone - SHx: former tobacco user FHx: cancer - ROS: Pt denied acute fever, total vision loss, active severe chest pain, respiratory failure, total body severe rash, total bowel/bladder incontinence, psychosis, active seizures, or active bleeding - O: VS reviewed General: Somnolent Eyes: Fundoscopic exam not able to visualize optic disks CV: Heart RRR, no murmur, no carotid bruit Lungs: Clear to auscultation bilaterally, no rhonchi or rales Neuro: - Mental: . Oriented x person/place/date . concentration appears reduced . speech fluency/comprehension normal . memory appears normal . fund of knowledge appear intact - Cranial Nerves: . II: PERRL, VFFTC . III/IV/: EOMI, no nystagmus, normal smooth pursuits, no Ptosis . V: facial sensation intact to LT . VII: face symmetric to eye closure and smile . VIII: hearing intact to conversation . IX/X: uvula raises symmetrically . XI: SCM 5/5 B/L strength . XII: tongue protrudes midline w/nl strength - Motor: . Tone: normal tone in all 4 extremity . Strength: no pronator drift, strength 5/5 throughout - Reflexes: B/L bic 2/4 - Sensory: all 4 extremity intact to light touch - Coord: LOIDA wnl - Gait: deferred - Labs: 01/06/18- CBC WBC 9.52H, coags wnl, CMP Na 134L CO2 18L GLuc 147H AST 71H ALT 54H Alk Phos 149H Alb 3.3L, Ammonia 13, UA w/neg LE and nitrate, UTox +opiates - Rads: 01/06/18- Head CT: no acute intracranial abnormalities 01/07/18- Brain MRI w/ and w/o con: no acute changes, mild atrophy and moderate white matter disease - Assessment: 1. Acute encephalopathy on 01/07/18: Neurologic exam on 01/08/18 showed no focal deficits and only mild somnolence/confusion (improved dramatically from mentation on 01/07/18) and brain MRI w/ and w/o con on 01/07/18 showed no acute changes. She has possible liver infection, liver tumor, renal tumor, and is on multiple medications all of which may be involved in acute encephalopathy. Pt is improving. - Plan: - Primary team ensuring no underlying cause for acute encephalopathy - Pt improving at this time, will continue to observe - 35 min spent counseling, majority of time spent counseling her and her daughter on her symptoms and diagnostic plans. Objective: Vital Signs Temp Pulse Resp BP Pulse Ox 36.6 C 82 22 H 163/63 H 97 01/08/18 08:00 01/08/18 12:00 01/08/18 12:00 01/08/18 12:00 01/08/18 12:00 Laboratory Results 01/07/18 05:05 01/07/18 05:05 01/07/18 01/08/18 01/09/18 05:59 05:59 05:59 Intake Total 1600 1337 Output Total 1650 Balance 1600 -313 PT 15.0 SEC (12.0-15.0) 01/06/18 22:20 INR 1.16 (0.83-1.16) 01/06/18 22:20 Allergies/Adverse Reactions: cephalexin Allergy (Intermediate, Verified 01/06/18 22:40) Diarrhea ciprofloxacin Allergy (Intermediate, Verified 12/20/17 11:01) Diarrhea
[2018-01-08] MEDS ORDERED: MOUTH WASH PO PRN (13:25)
[2018-01-08] MEDS ORDERED: BENZONATATE 100 MG CAP PO PRN (13:25)
[2018-01-08] MEDS ORDERED: ACETAMINOPHEN 325 MG TAB PO PRN (13:25)
[2018-01-08] MEDS ORDERED: FLUTICASONE NASAL 120 SPRAYS/16 GM MDI EACHNARE PRN (13:25)
[2018-01-08] MEDS ORDERED: oxyCODONE IR 5 MG TAB PO PRN (13:25)
[2018-01-08] MEDS ORDERED: NYSTATIN 15 GM CR TUBE TP PRN (13:25)
--- NOTE | 2018-01-08 14:24 | PDINTPN ---
Maitre D' Progress Note Assessment/Plan: Assessment/plan: 77 F with hepatocellular carcinoma complicated by recent bleeding and requiring embolization, was in normal mental status [employer] then developed acute confusion, agitation, incontinence. On arrival to ED she had a sbp 220 and was started anderson cardene drip. The etiology of her changed mental status was uncertain. CMP, CBC , ABG, chest CTA, head CT, MRI, troponins, abdominal CT, LFTs, tox screen have all been negative. * acute metabolic encephalopathy of uncertain etiology. I recommend dc antibiotics since there is no overt evidence of infection and continue observation (albeit monitored) over the next couple of days given the uncertain nature of her change. * HCC status unclear. Recent subcapsular bleeding seems stable by CT and no significant bleeding noted. Consider oncology on wednesday if she remains inpatient. Her mild LFT elevation dont explain the change. * atrial fibrillation- currently in NSR * * Subjective: more awake but amnestic to event Objective: Vital Signs Temp Pulse Resp BP Pulse Ox 36.6 C 82 22 H 163/63 H 97 01/08/18 08:00 01/08/18 12:00 01/08/18 12:00 01/08/18 12:00 01/08/18 12:00 Laboratory Results 01/07/18 05:05 01/07/18 05:05 01/07/18 01/08/18 01/09/18 05:59 05:59 05:59 Intake Total 1600 1337 Output Total 1650 500 Balance 1600 -313 -500 PT 15.0 SEC (12.0-15.0) 01/06/18 22:20 INR 1.16 (0.83-1.16) 01/06/18 22:20 Physical Exam - Physical Exam General Appearance: alert, no apparent distress, other (mostly oriented except didnt know BC) EENT: PERRL/EOMI, pharynx normal Neck: non-tender, supple Respiratory: lungs clear, normal breath sounds, No respiratory distress, No accessory muscle use Cardiac/Chest: regular rate, rhythm, No edema Abdomen: non-tender, soft, No distended Skin: normal color, warm/dry, No cyanosis Lymphatic: no adenopathy Extremities: No pedal edema Neuro/Psych: alert, normal mood/affect, oriented x 3, cognition abnormalities ICD10 Worksheet Patient Problems: Problems Problem Status Onset Altered mental state Acute Hypertensive encephalopathy Acute Dyspnea Acute Hepatocellular carcinoma Acute Hypoxia Acute Leukocytosis Acute Subcapsular hemorrhage of liver Acute
--- NOTE | 2018-01-08 14:37 | HOSPPROG ---
Hospitalist Progress Note Assessment/Plan: 77 yo F w/ AF and HCC p/w acute encephalopathy. Plan: # Acute encephalopathy -unclear etiology with w/u thus far unrevealing outside of HTN--head CT/brain MRI essentially negative, no evidence to support infectious process at this time and currently MS has now gone back to baseline. Possibilities include agitated hypertensive encephalopathy versus potentially medication related (inadvertent opiate overdose). PRES suspected on arrival with MRI not consistent with this, though there was mention by radiology of nonspecific bilateral white matter hyperintense signals in bilateral cerebral hemispheres. Appreciate neurology consult. Dc'ed abx given no e/o infection, will continue to monitor in house, pt/ot involved. # hypertensive emergency: as above, concern for htnsive encephalopathy with SBP > 220 on arrival. Sp cardene gtt that has now been off. Resuming home bp meds and monitoring. # HCC: with recent subcapsular bleed, CT appeared c/w typical post embolization liver per IR. # renal tumor: suspicious for RCC, will need to f/u with this with her usual oncologist. If patient remains in house will get IP onc consult. # AF: currently in nsr, holding AC # lactic acidosis: resolved # abnormal LfTS: in setting of HCC, stable # hematuria: likely related to kidney tumor # IP status, will monitor for another 1-2 days Care plan reviewed with Dr. Bill and multidisciplinary team on rounds. Further hx obtained from daughter present at bedside. Subjective: this am patient awake alert, mentating normally Objective: Vital Signs Temp Pulse Resp BP Pulse Ox 36.6 C 82 22 H 163/63 H 97 01/08/18 08:00 01/08/18 12:00 01/08/18 12:00 01/08/18 12:00 01/08/18 12:00 Laboratory Results 01/07/18 05:05 01/07/18 05:05 01/07/18 01/08/18 01/09/18 05:59 05:59 05:59 Intake Total 1600 1337 Output Total 1650 500 Balance 1600 -313 -500 PT 15.0 SEC (12.0-15.0) 01/06/18 22:20 INR 1.16 (0.83-1.16) 01/06/18 22:20 awake alert anicteric op clear rrr no mrg cta to ant exam soft nt nd no cce warm dry well perfused oriented appropriate - Time Spent With Patient Time Spent with Patient: greater than 35 minutes Time Spent with Patient: Greater than 35 minutes spent on this patients care, greater than 50% of time spent counseling, educating, and coordinating care regarding the above mentioned plan. ICD10 Worksheet Patient Problems: Problems Problem Status Onset Dyspnea Acute Hypoxia Acute Leukocytosis Acute Hepatocellular carcinoma Acute Subcapsular hemorrhage of liver Acute Hypertensive encephalopathy Acute Altered mental state Acute
[2018-01-08] MEDS: VERAPAMIL ER 240 MG TAB PO SCH (21:32)
[2018-01-08] MEDS: CHOLECALCIFEROL VIT D3 2,000 UNITS TAB/CAP PO SCH (21:33)
[2018-01-08] MEDS: CETIRIZINE 10 MG TAB PO SCH (21:33)
[2018-01-08] MEDS: LOSARTAN POTASSIUM 50 MG TAB PO SCH (21:33)
[2018-01-08] MEDS: DULoxetine 60 MG CAP PO SCH (21:34)
[2018-01-08] MEDS: FAMOTIDINE 20 MG TAB PO SCH (21:34)
[2018-01-08] MEDS: traZODone 50 MG TAB PO SCH (21:34)
[2018-01-08] MEDS: hydrALAZINE 20 MG/ML VIAL IVP PRN (23:55)
[2018-01-09] MEDS ORDERED: HYDROmorphONE/DILAUDID 2 MG TAB PO PRN (02:24)
[2018-01-09] MEDS: FAMOTIDINE 20 MG TAB PO SCH ×2 (09:01→20:47)
[2018-01-09] MEDS: hydrALAZINE 20 MG/ML VIAL IVP PRN (09:27)
[2018-01-09] MEDS ORDERED: LABETALOL HCL 5 MG/ML 20 ML MDV IVP PRN (11:19)
[2018-01-09] MEDS ORDERED: hydrALAZINE 20 MG/ML VIAL IVP PRN (11:20)
--- NOTE | 2018-01-09 12:17 | NEUROPROG ---
Assessment: [id number] - Neurology Consult: - CC: F/U for encephalopathy - Narrative Summary: Pt with prior history of afib (not on anticoagulation due to prior GI bleed), hepatocellular cancer, DM2, and rheumatoid arthritis. The patient became abruptly agitated, confused, and slurred her speech at 9 pm on 01/06/18 so EMS was called and she was brought to [facility]. Blood pressure was elevated to [address] showed no acute changes but chest CT showed possible infection of liver. She also has a liver tumor and a renal tumor. I initially saw the patient on 01/07/18. She had received some sedation in the ER and was somnolent. She would not answer questions or respond to commands. The nurse was planning on taking her very soon for brain MRI w/ and w/o con which appeared to be the next appropriate step. - F/U 01/08/18. The brain MRI w/ and w/o con was unremarkable. Pt much improved today. She is somnolent but able to attend and answer questions. Oriented x person/place/date and neurologic exam shows no focal neurologic deficits. Pts daughter is at bedside and reported she is doing much better. - HPI: F/U 01/09/18. Pt alert and oriented x 3. Confusion has resolved. No new complaints. - PMHx: afib, RA, nocturia, HTN, HLD, DM2, hepatocellular carcinoma, possible renal carcinoma - SHx: former tobacco user FHx: cancer - ROS: Pt denied acute fever, total vision loss, active severe chest pain, respiratory failure, total body severe rash, total bowel/bladder incontinence, psychosis, active seizures, or active bleeding - Labs: 01/06/18- CBC WBC 9.52H, coags wnl, CMP Na 134L CO2 18L GLuc 147H AST 71H ALT 54H Alk Phos 149H Alb 3.3L, Ammonia 13, UA w/neg LE and nitrate, UTox +opiates - Rads: 01/06/18- Head CT: no acute intracranial abnormalities 01/07/18- Brain MRI w/ and w/o con: no acute changes, mild atrophy and moderate white matter disease - Assessment: 1. Acute encephalopathy on 01/07/18 (resolved): Neurologic exam on 01/08/18 showed no focal deficits and only mild somnolence/confusion (improved dramatically from mentation on 01/07/18) and brain MRI w/ and w/o con on 01/07/18 showed no acute changes. She has possible liver infection, liver tumor, renal tumor, and is on multiple medications all of which may be involved in acute encephalopathy. Encephalopathy had resolved on 01/09/18. - Plan: - No further neurologic w/u needed, symptoms resolved, neurology will sign off - 35 min spent counseling, majority of time spent counseling her on her symptoms and diagnostic plans as well as expected prognosis. Objective: Vital Signs Temp Pulse Resp BP Pulse Ox 36.7 C 104 H 18 184/90 H 90 L 01/09/18 07:20 01/09/18 11:15 01/09/18 07:20 01/09/18 11:45 01/09/18 07:20 Laboratory Results 01/07/18 05:05 01/07/18 05:05 01/08/18 01/09/18 01/10/18 05:59 05:59 05:59 Intake Total 1337 950 Output Total 1650 800 Balance -313 150 PT 15.0 SEC (12.0-15.0) 01/06/18 22:20 INR 1.16 (0.83-1.16) 01/06/18 22:20 Allergies/Adverse Reactions: cephalexin Allergy (Intermediate, Verified 01/06/18 22:40) Diarrhea ciprofloxacin Allergy (Intermediate, Verified 12/20/17 11:01) Diarrhea
--- NOTE | 2018-01-09 15:03 | HOSPPROG ---
Hospitalist Progress Note Assessment/Plan: 77 yo F w/ AF and HCC p/w acute encephalopathy. Plan: # Acute encephalopathy -unclear etiology with w/u thus far unrevealing outside of HTN--head CT/brain MRI essentially negative, no evidence to support infectious process at this time and currently MS has now gone back to baseline. Possibilities include agitated hypertensive encephalopathy versus potentially medication related (inadvertent opiate overdose). Currently remains oriented and appropriate # hypertensive emergency: as above, concern for htnsive encephalopathy with SBP > 220 on arrival. Sp cardene gtt that has now been off. At home patient on verapamil 240 and losartan 100 and BP remains significantly elevated on these medications. Will add amlodipine 10, continue prn labetalol and hydralazine. # HCC: with recent subcapsular bleed, CT appeared c/w typical post embolization liver per IR. # renal tumor: suspicious for RCC, will need to f/u with this with her usual oncologist. If patient remains in house will get IP onc consult. # hyperglycemia: persistent, will check HgbA1c # AF: currently in nsr, has been off of AC since liver bleed in December # RA: relatively quiescent and not on any disease modifying medications at this time # lactic acidosis: resolved # abnormal LfTS: in setting of HCC, stable # hematuria: likely related to kidney tumor # IP status Subjective: no acute overnight events, patient is currently feeling anxious but otherwise better physically, BP has been elevated overnight Objective: Vital Signs Temp Pulse Resp BP Pulse Ox 36.7 C 103 H 18 165/69 H 90 L 01/09/18 07:20 01/09/18 13:29 01/09/18 07:20 01/09/18 13:29 01/09/18 07:20 Laboratory Results 01/07/18 05:05 01/07/18 05:05 01/08/18 01/09/18 01/10/18 05:59 05:59 05:59 Intake Total 1337 950 Output Total 1650 800 Balance -313 150 PT 15.0 SEC (12.0-15.0) 01/06/18 22:20 INR 1.16 (0.83-1.16) 01/06/18 22:20 awake alert anicteric op clear rrr no mrg cta to ant exam soft nt nd no cce warm dry well perfused oriented appropriate - Time Spent With Patient Time Spent with Patient: greater than 35 minutes Time Spent with Patient: Greater than 35 minutes spent on this patients care, greater than 50% of time spent counseling, educating, and coordinating care regarding the above mentioned plan. ICD10 Worksheet Patient Problems: Problems Problem Status Onset Altered mental state Acute Hypertensive encephalopathy Acute Dyspnea Acute Hepatocellular carcinoma Acute Hypoxia Acute Leukocytosis Acute Subcapsular hemorrhage of liver Acute
[2018-01-09] MEDS: DULoxetine 60 MG CAP PO SCH (20:45)
[2018-01-09] MEDS: CHOLECALCIFEROL VIT D3 2,000 UNITS TAB/CAP PO SCH (20:45)
[2018-01-09] MEDS: traZODone 50 MG TAB PO SCH (20:46)
[2018-01-09] MEDS: CETIRIZINE 10 MG TAB PO SCH (20:46)
[2018-01-09] MEDS: LOSARTAN POTASSIUM 50 MG TAB PO SCH (20:46)
[2018-01-09] MEDS: VERAPAMIL ER 240 MG TAB PO SCH (20:47)
[2018-01-10] MEDS: FAMOTIDINE 20 MG TAB PO SCH (08:37)
--- NOTE | 2018-01-10 12:22 | PDDCSUM ---
Discharge Summary Discharge Summary: Dates of service 01/07-01/10/18 Consultations: neurology, critical care medicine Procedures performed: abd/head CT, brain MRI, PICC placement Hospital course by problem: 77 yo F w/ AF and HCC p/w acute encephalopathy. Plan: # Acute encephalopathy -completely resolved and remains unclear etiology. Brain MRI, head CT negative. Neuro consult without etiology. ? HTNsive encephalopathy versus inadvertent med overdose--on many centrally acting medications. # hypertensive emergency: as above, concern for htnsive encephalopathy with SBP > 220 on arrival. Artemio bardales gtt, at home patient on verapamil 240 and losartan 100-- added amlodipine 10. Will need to f/u with PCP to be sure BP remains controlled. At this time BP largely in 140s systolic but a couple readings up to 170 overnight--will need ongoing f/u but do not want to lower too quickly # HCC: with recent subcapsular bleed, CT appeared c/w typical post embolization liver per IR. # renal tumor: suspicious for RCC, will need to f/u with this with her usual oncologist. If patient remains in house will get IP onc consult. # hyperglycemia: persistent, HgbA1c pending # AF: currently in nsr, has been off of AC since liver bleed in December # RA: relatively quiescent and not on any disease modifying medications at this time # lactic acidosis: resolved # abnormal LfTS: in setting of HCC, stable # hematuria: likely related to kidney tumor Items pending at discharge: Hgb A1c Items for f/u: BP management, f/u hyperglycemia DC home in good condition f/u with PCP > 35 min spent in dc more than half in coordination of care
--- NOTE | 2018-01-10 12:29 | ASDISCHSUM ---
Discharge Information Plan Status:Home with No Needs Medically Cleared to Leave:01/10/2018 Discharge Date:01/10/2018 CM D/C Disposition:Home, Routine, Self-Care ADT D/C Disposition:Home, Routine, Self-Care Projected Discharge Date:01/10/2018 Transportation at D/C:Family Discharge Delay Reason: Follow-Up Date:01/10/2018 Discharge Slot: Final Diagnosis: Placement Information Patient Contact Information Contact Name:YORDY Relationship:Daughter Address:[address] Work Phone: City:[facility] Alternate Phone: State/Zip Code:[place] [address] Email: Financial Information Financial Class:Medicare Primary Plan Desc:MEDICARE INPATIENT Primary Plan Number:[id number] Secondary Plan Desc:[facility] Secondary Plan Number:[id number] Assessment Information LACE LACE Length of stay for Answers: 3 days current admission Acuity / Level of Answers: Yes Care: Did the patient have an inpatient admission? Comorbidities - select Answers: Diabetes (uncontrolled or all that apply controlled) Other Notes: HTN, liver and renal tumors # of Emergency department Answers: 3-4 visits in the last 6 months Score: 11 Date Signed: 01/10/2018 12:27 PM Electronically Signed By:MICHEL Hutchinson [facility] Initial CM Assessment Living Arrangements What is your living Answers: With Child(roxanna) arrangement? Who do you live with? Type Of Residence What kind of residence do Answers: House you live in? Discharge Plan Comments Coordination Status Comments Notes: Patient is a 77yo female who is currently living with her daughter here in [place]. She resides in [place] but currently staying locally with her daughter. Patient has a prior hx of afib, hepatocellar cancer, DM2, and rheumatoid arthritis. Patient became abruptly agitated, confused and slurred speech at 9PM on 01-06-18. Patient also has a liver tumor and renal tumor. Patient was admitted for acute encephalopathy, HCC, hypertensive emergency, lactic acidosis, abnormal LFT's, suspected RCC and Hematuria. [employer] Counsel[employer] ordered and wound care. D/C plan TBD. CM will follow. Date Signed: 01/07/2018 02:19 PM Electronically Signed By:Shauna Jeffries LCSW Intervention Information
[2018-01-10 14:14] VITALS: BP 139/90
== END 2018-01-10 15:00 | disposition home or self-care (01) | DRG 304 ==
LOC: EDUNIT# → F2N 01-07 02:18 → F3N 01-08 14:27
PROVIDERS: ADMIT Student in an Organized Health Care Education/Training Program; ATTEND Student in an Organized Health Care Education/Training Program
PROC: 02HV33Z Insertion of Infusion Device into Superior Vena Cava, Percutaneous Approach (ICD-10-PCS; principal; 2018-01-07)
DX: I16.1 Hypertensive emergency (principal); G93.49 Other encephalopathy; E87.2 Acidosis; N28.89 Other specified disorders of kidney and ureter; E86.9 Volume depletion, unspecified; R73.9 Hyperglycemia, unspecified; I48.91 Unspecified atrial fibrillation; M06.9 Rheumatoid arthritis, unspecified; R94.5 Abnormal results of liver function studies; R31.9 Hematuria, unspecified; L89.152 Pressure ulcer of sacral region, stage 2; Z87.891 Personal history of nicotine dependence; Z85.520 Personal history of malignant carcinoid tumor of kidney
CPT/HCPCS: 80305; 92526-GN; 92610-GN; 96365; 97161-GP; 97165-GO; 97535-GO; A9585; C1751; G0480; G8978-GP-CI; G8979-GP-CI; G8980-GP-CI; G8987-GO-CJ; G8988-GO-CI; G8996-GN-CI; G8997-GN-CI; G8998-GN-CH; J0360; J2060; J2250; J2405; J2543; J2997; J3010; J3370; Q9967

== ENCOUNTER → 2018-02-01 | Day surgery (SDC) | payer OTHER, BC ==
[~2018-02-01] MED LIST: ALTEPLASE 2 MG VIAL IVP PRN; FLUMAZENIL 0.5 MG/5 ML MDV IVP ONE; FLUMAZENIL 0.5 MG/5 ML MDV IVP PRN; GLUCAGON HCL 1 MG VIAL IVP PRN; HEPARIN 10,000 UNIT/10 ML MDV (1,000 UNIT/ML) IVP PRN; IOPAMIDOL (ISOVUE-300) 100 ML BTL ONE; LIDOCAINE 1% 300 MG/30 ML SDV ONE; MEPERIDINE 25 MG/ML SYR IVP PRN; MIDAZOLAM 2 MG/2 ML VIAL IVP PRN; MIDAZOLAM 2 MG/2 ML VIAL ONE; NALOXONE HCL 0.4 MG/ML INJ IVP PRN; NALOXONE HCL 0.4 MG/ML INJ ONE; NS 1,000 ML IV SCH; ONDANSETRON 4 MG/2 ML VIAL IVP PRN; OXYCODONE/APAP 5/325 TAB PO PRN; PROTAMINE SULFATE 50 MG/5 ML VIAL IVP PRN; fentaNYL 100 MCG/2 ML INJ IVP PRN; fentaNYL 100 MCG/2 ML INJ ONE
[2018-02-01 08:39] LABS: INR 1.11 (0.83-1.16); PROTIME(PATIENT) 14.5 SEC (12.0-15.0)
--- NOTE | 2018-02-01 08:41 | PDGENHP ---
History & Physical Chief Complaint: HCC History of Present Illness: S/P BLEND EMBOLIZATION FOR BLEEDING HCC. REMAPPING ANGIO TODAY FOR Y90 Pertinent Past, Social, Family History: LT ATHROSCOPY, LT KNEE REPLACEMENT, HYSTERECTOMY, BOWEL RESECTION, Relevant Physical Exam: SWOLLEN LEGS. SOB SINCE NOVEMBER. Cardiorespiratory Assessment: RRR,CTA
[2018-02-01 10:42] VITALS: BP 128/56
--- NOTE | 2018-02-01 11:33 | PDRADPN ---
Radiology Procedure Note Date of Procedure: 02/01/18 Radiologist: Florina Peterson Anesthesia: IV Sedation Pre-op Diagnosis: HCC Post-op Diagnosis: SAME Indication: REPEAT MAPPING FOR Y90 TREATMENT Procedure: VISCERAL ANGIOGRAM; MAA INJECTION Finding(s): MAPPING DONE Inf/Abcess present in the surg proc area at time of surgery?: No Complications: NONE
== END | disposition home or self-care (01) ==
LOC: FIMAGING 07:39
PROVIDERS: ATTEND Radiology Diagnostic Radiology
PROC: CF1 Nuclear Medicine, Hepatobiliary System and Pancreas, Planar Nuclear Medicine Imaging (ICD-10-PCS; principal; 2018-02-01)
PROC: 04H333Z Insertion of Infusion Device into Hepatic Artery, Percutaneous Approach (ICD-10-PCS; principal; 2018-02-01)
PROC: 5A2204Z Restoration of Cardiac Rhythm, Single (ICD-10-PCS; 2018-02-01)
DX: C22.0 Liver cell carcinoma (principal); I48.91 Unspecified atrial fibrillation; M06.9 Rheumatoid arthritis, unspecified
CPT/HCPCS: 36248; 75726; 78201; 92960; 99152; 99153; A9540; C1769; C1894; C1760; J1644; J2250; J2310; J3010; Q9967

== ENCOUNTER → 2018-03-02 | Day surgery (SDC) | payer OTHER, BC ==
[~2018-03-02] MED LIST changes: -ALTEPLASE 2 MG VIAL IVP PRN; -FLUMAZENIL 0.5 MG/5 ML MDV IVP ONE; -HEPARIN 10,000 UNIT/10 ML MDV (1,000 UNIT/ML) IVP PRN; -LIDOCAINE 1% 300 MG/30 ML SDV ONE; -MIDAZOLAM 2 MG/2 ML VIAL ONE; -NALOXONE HCL 0.4 MG/ML INJ ONE; +NS 1,000 ML IV ONE; -NS 1,000 ML IV SCH; +PANTOPRAZOLE SODIUM 40 MG VIAL IVP ONE; -PROTAMINE SULFATE 50 MG/5 ML VIAL IVP PRN; -fentaNYL 100 MCG/2 ML INJ ONE; +methylPREDNISolone SOD SUCC 125 MG/2 ML VIAL IVP ONE
[2018-03-02 09:13] LABS: PLATELET COUNT 334 10^3/uL (150-400)
[2018-03-02 09:23] LABS: INR 1.09 (0.83-1.16); PROTIME(PATIENT) 14.3 SEC (12.0-15.0)
--- NOTE | 2018-03-02 09:24 | PDGENHP ---
History & Physical Chief Complaint: HCC History of Present Illness: S/P HCC WITH INTERNAL BLEEDING. S/P MAPPING ANGIOGRAM X 2. HERE FOR Y90 TREATMENT. Pertinent Past, Social, Family History: NOW LIVING IN A SENIOR COMMUNITY IN [facility]. Relevant Physical Exam: NO DISTRESS. SWOLLEN LEGS. NECK PAIN Cardiorespiratory Assessment: RRR, CTA
--- NOTE | 2018-03-02 09:25 | PDPROPOC ---
Sedation Plan of Care Sedation Plan of Care: vital signs stable, mental status noted, patient educated of risks, benefits, alternatives, patient can tolerate sedation ASA Classification: ASA 2 Planned drugs: fentanyl, midazolam Mallampati Score: Class 3 Mallampati Reference Image: Patient passed 3-3-2 rule?: Yes
[2018-03-02 10:50] VITALS: BP 147/59
--- NOTE | 2018-03-02 11:18 | PDRADPN ---
Radiology Procedure Note Date of Procedure: 03/02/18 Radiologist: Florina Peterson Anesthesia: IV Sedation Pre-op Diagnosis: HCC Post-op Diagnosis: SAME Indication: COMPLETION OF TREATMENT Procedure: y90 EMBOLIZATION Inf/Abcess present in the surg proc area at time of surgery?: No
== END | disposition home or self-care (01) ==
LOC: FIMAGING 08:26
PROVIDERS: ATTEND Radiology Diagnostic Radiology
PROC: B4121ZZ Fluoroscopy of Hepatic Artery using Low Osmolar Contrast (ICD-10-PCS; principal; 2018-03-02)
PROC: 04H333Z Insertion of Infusion Device into Hepatic Artery, Percutaneous Approach (ICD-10-PCS; principal; 2018-03-02)
PROC: 04L33DZ Occlusion of Hepatic Artery with Intraluminal Device, Percutaneous Approach (ICD-10-PCS; principal; 2018-03-02)
DX: C22.0 Liver cell carcinoma (principal)
CPT/HCPCS: 36247; 37243; 75726; 77790; 78201; 79445; 99152; 99153; C1769; C1887; C1894; C2616; C1760; J1200; J1644; J2250; J2310; J2930; J3010; Q9967

== ENCOUNTER 2018-08-05 18:17 | Observation (INO) | payer OTHER, BC ==
--- NOTE | 2018-08-05 19:32 | EDPHY ---
H & P Stated Complaint: Cough~2wks; keeping pt awake at night;also want pain meds ( out of RX) Time Seen by Provider: 08/05/18 19:32 HPI/ROS: HPI CHIEF COMPLAINT: Bad cough. HISTORY OF PRESENT ILLNESS: Patient is 77-year-old female, history of hepatocellular carcinoma, hypertension, hyponatremia, delirium, AFib, presents to the emergency room with shortness of breath, cough nonproductive, intermittent wheezing. Patient states she has had this cough that is been going on for the past 2 weeks it has progressively gotten worse. Nonproductive. Also endorses chills. No significant shortness of breath no chest pain. No dyspnea on exertion. Past Medical History:hepatocellular carcinoma, hypertension, hyponatremia, delirium, AFib, Past Surgical History: No recent surgical history Social History: Denies drugs alcohol tobacco. Family History: Noncontributory ROS REVIEW OF SYSTEMS: 10 Systems were reviewed and negative with the exception of the elements mentioned in the history of present illness. Exam Constitutional elderly, nontoxic triage nursing summary reviewed, vital signs reviewed, awake/alert. Eyes normal conjunctivae and sclera, EOMI, PERRLA. HENT normal inspection, atraumatic, moist mucus membranes, no epistaxis, neck supple/ no meningismus, no raccoon eyes. Respiratory wheezing faintly throughout lung [place], bronchitic sounding cough on exam. Cardiovascular rate normal, regular rhythm, no murmur, no edema, distal pulses normal. Gastrointestinal soft, non-tender, no rebound, no guarding, normal bowel sounds, no distension, no pulsatile mass. Genitourinary no CVA tenderness. Musculoskeletal no midline vertebral tenderness, full range of motion, no calf swelling, no tenderness of extremities, no meningismus, good pulses, neurovascularly intact. Skin pink, warm, & dry, no rash, skin atraumatic. Neurologic awake, alert and oriented x 3, AAOx3, moves all 4 extremities equally, motor intact, sensory intact, CN II-XII intact, normal cerebellar, normal vision, normal speech. Psychiatric normal mood/affect. Heme/Lymph/Immune no lymphadenopathy. Differential Diagnosis: Includes but is not limited to in a particular order viral syndrome, URI, viral pneumonia, bacterial pneumonia, influenza Medical Decision Making: Plan for this patient two view chest x-ray, DuoNeb breathing treatment, IV fluid bolus, check basic blood work, influenza re- evaluate. Re-evaluation: CT angiogram of the chest shows no evidence of pulmonary embolism. No focal pneumonia. Called to me by Dr. Hudson Patient's urinalysis reviewed this shows nitrite positive UTI. Urine culture sent. Zosyn 4.5 mg ordered. Patient has allergies to cephalexin, Cipro. Patient CT scan angiogram does not show any evidence of pulmonary embolism. Patient's urinalysis indicate nitrite positive UTI. Urine culture sent. Systemic white blood cell count seen on blood stream. Plan for admission today for UTI, high blood pressure, high white count, not feeling well. Spoke with the hospitalist service Dr. Frausto Agrees to admit. Source: Patient - Personal History Current Tetanus Diphtheria and Acellular Pertussis (TDAP): Yes - Medical/Surgical History Hx Asthma: No Hx Chronic Respiratory Disease: No Hx Diabetes: No Hx Cardiac Disease: Yes Hx Renal Disease: No Hx Cirrhosis: No Hx Alcoholism: No Hx HIV/AIDS: No Hx Splenectomy or Spleen Trauma: No Other PMH: renal carcinoma with mets to liver diagnosed 11/2017,rheumatoid arth , afib, dm - poss resolved, hypertension, hyperlipidemia, surg - ruptured intest abcess, colostomy - reversed, hysterectomy, L rotator cuff surg, L knee replace, cataract surg bilat eyes, deg disc disease - Social History Smoking Status: Former smoker Constitutional: Initial Vital Signs Temperature (C) 36.7 C 08/05/18 18:18 Heart Rate 86 08/05/18 18:18 Respiratory Rate 18 08/05/18 18:18 Blood Pressure 198/78 H 08/05/18 18:18 O2 Sat (%) 92 08/05/18 18:18 O2 Delivery Mode Nasal Cannula O2 (L/minute) 2 Allergies/Adverse Reactions: cephalexin Allergy (Intermediate, Verified 08/05/18 18:17) Diarrhea ciprofloxacin Allergy (Intermediate, Verified 08/05/18 18:17) Diarrhea metformin Allergy (Intermediate, Verified 08/05/18 18:17) Diarrhea Home Medications: Medication Instructions Recorded Cetirizine [ZyrTEC 10 mg (*)] 10 mg PO HS 12/05/17 Cholecalciferol Vit D3 [Vitamin D3 2,000 units PO HS 12/05/17 2000 units tab (OTC)] Ranitidine HCl [Zantac] 150 mg PO HS 12/05/17 Verapamil ER [Calan SR/ER 240MG 240 mg PO HS 12/05/17 (*)] traZODone [traZODONE 50MG (*)] 50 mg PO HS 12/20/17 Fluticasone Nasal [Flonase Nasal 1 sprays NASAL HS 08/05/18 [place]] Losartan Potassium [Cozaar 50 mg 50 mg PO HS 08/05/18 (*)] amLODIPine BESYLATE [Norvasc 5 mg 5 mg PO HS 08/05/18 (*)] Albuterol Sulfate [Proventil Hfa] 6.7 gm IH BID PRN #1 hfa.aer.ad 08/06/18 Azithromycin [Zithromax] 250 mg PO DAILY #6 tab 08/06/18 oxyCODONE IR [Oxycodone Ir (*)] 5 mg PO Q6 #20 tab 08/06/18 predniSONE 20 mg PO DAILY #5 tablet 08/06/18 Medical Decision Making - Data Points Laboratory Results: Laboratory Results 08/05/18 19:40 08/05/18 19:40 Microbiology Results: MICROBIOLOGY 08/05/18 19:42 Nasal, Sinus - Swab Respiratory Panel (PCR) - Final No Organism Detected By Pcr Medications Given: Discontinued Medications Albuterol/Ipratropium (Duoneb) 3 ml IH EDNOW ONE Stop: 08/05/18 19:40 Last Admin: 08/05/18 19:55 Dose: 3 ml Amlodipine Besylate (Norvasc) 5 mg PO HS [facility] Stop: 02/01/19 22:44 Last Admin: 08/05/18 23:06 Dose: 5 mg Sodium Chloride (Ns) 1,000 mls @ 0 mls/hr IV ONCE ONE; Wide Open PRN Reason: Protocol Stop: 08/05/18 19:40 Last Admin: 08/05/18 19:54 Dose: 1,000 mls Piperacillin/Tazobactam/Dextrose (Zosyn (Premix)) 100 mls @ 200 mls/hr IV EDNOW ONE PRN Reason: Protocol Stop: 08/05/18 22:32 Last Admin: 08/05/18 22:24 Dose: 100 mls Losartan Potassium (Cozaar) 50 mg PO HS MITESH Stop: 02/01/19 22:44 Last Admin: 08/05/18 23:06 Dose: 50 mg Oxycodone HCl (Oxycodone Ir) 5 mg PO EDNOW ONE Stop: 08/05/18 20:30 Last Admin: 08/05/18 20:32 Dose: 5 mg Oxycodone HCl (Oxycodone Ir) 5 mg PO Q6HRS PRN PRN Reason: Pain, Severe Able to Take PO Stop: 08/15/18 22:39 Last Admin: 08/06/18 11:34 Dose: 5 mg Ranitidine HCl (Zantac) 150 mg PO HS PRN PRN Reason: Heartburn Stop: 02/01/19 22:41 Last Admin: 08/05/18 23:43 Dose: 150 mg Trazodone HCl (Trazodone) 50 mg PO HS PRN PRN Reason: Sleep/Insomnia Stop: 02/02/19 20:59 Last Admin: 08/06/18 01:29 Dose: 50 mg Verapamil HCl (Calan Sr) 240 mg PO HS MITESH Stop: 02/01/19 22:44 Last Admin: 08/05/18 23:06 Dose: 240 mg Departure - Departure Disposition: [facility] In[facility] Acute Clinical Impression: Chills UTI (urinary tract infection) Qualifiers: Urinary tract infection type: acute cystitis Hematuria presence: with hematuria Qualified Code(s): N30.01 - Acute cystitis with hematuria URI (upper respiratory infection) Qualifiers: URI type: unspecified URI Qualified Code(s): J06.9 - Acute upper respiratory infection, unspecified Elevated white blood cell count Qualifiers: Leukocytosis type: unspecified Qualified Code(s): D72.829 - Elevated white blood cell count, unspecified Fatigue Qualifiers: Fatigue type: unspecified Qualified Code(s): R53.83 - Other fatigue Condition: Fair
[2018-08-05] MEDS ORDERED: NS 1,000 ML IV ONE (19:39)
[2018-08-05] MEDS ORDERED: IPRATROPIUM/ALBUTEROL 3 ML DEYVIAL IH ONE (19:39)
[2018-08-05 20:07] LABS: PLATELET COUNT 267 10^3/uL (150-400)
[2018-08-05] MEDS ORDERED: oxyCODONE IR 5 MG TAB PO ONE (20:29)
[2018-08-05] MEDS ORDERED: oxyCODONE IR 5 MG TAB ONE (20:30)
[2018-08-05] MEDS ORDERED: IOPAMIDOL (ISOVUE 370) 100 ML BTL IV ONE (20:50)
[2018-08-05] MEDS ORDERED: PIPERACILLIN/TAZO 4.5 GM/DEX 100 ML IV ONE (22:03)
[2018-08-05] MEDS ORDERED: ONDANSETRON DISINTEGRATING 4 MG TAB PO PRN (22:23)
[2018-08-05] MEDS ORDERED: ACETAMINOPHEN 325 MG TAB PO PRN (22:23)
[2018-08-05] MEDS ORDERED: ONDANSETRON 4 MG/2 ML VIAL IVP PRN (22:23)
[2018-08-05] MEDS ORDERED: ALBUTEROL 3 ML DEYVIAL IH PRN (22:23)
[2018-08-05] MEDS ORDERED: hydrALAZINE 25 MG TAB PO PRN (22:25)
[2018-08-05] MEDS ORDERED: GUAIFENESIN/DM 10 ML UDCUP PO PRN (22:25)
[2018-08-05] MEDS ORDERED: BENZONATATE 100 MG CAP PO PRN (22:25)
[2018-08-05] MEDS ORDERED: traZODone 50 MG TAB PO PRN (22:38)
[2018-08-05] MEDS ORDERED: RANITIDINE HCL 150 MG/10 ML UDCUP PO PRN (22:42)
[2018-08-05] MEDS ORDERED: VERAPAMIL ER 240 MG TAB PO SCH (22:45)
[2018-08-05] MEDS ORDERED: amLODIPine BESYLATE 5 MG TAB PO SCH (22:45)
[2018-08-05] MEDS ORDERED: LOSARTAN POTASSIUM 25 MG TAB PO SCH (22:45)
[2018-08-05] MEDS: oxyCODONE IR 5 MG TAB PO PRN (23:12)
--- NOTE | 2018-08-06 01:46 | PDGENHP ---
History and Physical - Chief Complaint Cough, fatigue - History of Present Illness 77 yo F w/ hx of HCC, HTN, renal cyst (?RCC), and AF presents with cough and fatigue. She has had a cough for about 2 weeks. Over the last 3 days, however, this has worsened in frequency and severity. The cough remains mostly dry and she denies fevers. Over the last couple of days she has also developed chills, fatigue, and body aches. In the ED she has an elevated WBC but displays no other SIRS criteria. CTPE negative for PE or pneumonia. UA has heavy RBC's and moderate WBC's. she denies urinary symptoms She is being admitted for observation. Case discussed with ED physician Dr. Fischer; records reviewed and summarized above. History Information - Allergies/Home Medication List Allergies/Adverse Reactions: cephalexin Allergy (Intermediate, Verified 08/05/18 18:17) Diarrhea ciprofloxacin Allergy (Intermediate, Verified 08/05/18 18:17) Diarrhea metformin Allergy (Intermediate, Verified 08/05/18 18:17) Diarrhea Home Medications: Cetirizine [ZyrTEC 10 mg (*)] 10 mg PO HS 12/05/17 [Last Taken 08/04/18 21:00] Cholecalciferol Vit D3 [Vitamin D3 2000 units tab (OTC)] 2,000 units PO HS 12/05 [Last Taken 08/04/18 21:00] Ranitidine HCl [Zantac] 150 mg PO HS 12/05/17 [Last Taken 08/04/18 21:00] Verapamil ER [Calan SR/ER 240MG (*)] 240 mg PO HS 12/05/17 [Last Taken 08/04/18 20:00] traZODone [traZODONE 50MG (*)] 50 mg PO HS 12/20/17 [Last Taken 08/04/18 21:00] Fluticasone Nasal [Flonase Nasal [place] (RX)] 1 sprays NASAL HS 08/05/18 [Last Taken 08/04/18 21:00] Losartan Potassium [Cozaar 50 mg (*)] 50 mg PO HS 08/05/18 [Last Taken 08/04/18 21:00] amLODIPine BESYLATE [Norvasc 5 mg (*)] 5 mg PO HS 08/05/18 [Last Taken 08/04/18 21:00] I have personally reviewed and updated: family history, medical history - Past Medical History atrial fibrillation (Diagnosis several years ago, had a stress test at that time ), cancer (HCC) Additional medical history: Rheumatoid arthritiscontrolled. Chronic nocturia. Chronic sinus congestion. Hypertension. Hyperlipidemia. Diabetes mellitus type 2. Hepatocellular carcinoma, possible renal cell carcinoma - Surgical History Additional surgical history: Knee surgery, shoulder surgery, recent liver biopsy - Family History Positive for: hypertension, stroke Additional family history: Second-degree relative with colon cancer, sibling with testicular cancer - Social History Smoking Status: Former smoker Review of Systems Review of Systems: ROS: 10pt was reviewed & negative except for what was stated in HPI & below Physical Exam Physical Exam: Temp Pulse Resp BP Pulse Ox 36.8 C 75 18 164/83 H 95 08/06/18 01:01 08/06/18 01:01 08/06/18 01:01 08/06/18 01:01 08/06/18 01:01 O2 (L/minute) 2 Constitutional: appears nourished, uncomfortable Eyes: PERRL, EOMI Ears, Nose, Mouth, Throat: moist mucous membranes, no oral mucosal ulcers Cardiovascular: regular rate and rhythym, no murmur, rub, or gallop Respiratory: no respiratory distress, clear to auscultation Gastrointestinal: normoactive bowel sounds, soft, non-tender abdomen Skin: warm, normal color Musculoskeletal: full muscle strength, no muscle tenderness Neurologic: AAOx3, CN II-XII Intact Psychiatric: interacting appropriately, not anxious Lab Data & Imaging Review 08/05/18 19:40 08/05/18 19:40 WBC 17.31 10^3/uL (3.80-9.50) H 08/05/18 19:40 RBC 4.65 10^6/uL (4.18-5.33) 08/05/18 19:40 Hgb 13.8 g/dL (12.6-16.3) 08/05/18 19:40 Hct 42.6 % (38.0-47.0) 08/05/18 19:40 MCV 91.6 fL (81.5-99.8) 08/05/18 19:40 MCH 29.7 pg (27.9-34.1) 08/05/18 19:40 MCHC 32.4 g/dL (32.4-36.7) 08/05/18 19:40 RDW 13.7 % (11.5-15.2) 08/05/18 19:40 Plt Count 267 10^3/uL (150-400) 08/05/18 19:40 MPV 10.5 fL (8.7-11.7) 08/05/18 19:40 Neut % (Auto) 78.2 % (39.3-74.2) H 08/05/18 19:40 Lymph % (Auto) 10.9 % (15.0-45.0) L 08/05/18 19:40 [place] % (Auto) 10.0 % (4.5-13.0) 08/05/18 19:40 Eos % (Auto) 0.2 % (0.6-7.6) L 08/05/18 19:40 Baso % (Auto) 0.2 % (0.3-1.7) L 08/05/18 19:40 Nucleat RBC Rel Count 0.0 % (0.0-0.2) 08/05/18 19:40 Absolute Neuts (auto) 13.54 10^3/uL (1.70-6.50) H 08/05/18 19:40 Absolute Lymphs (auto) 1.89 10^3/uL (1.00-3.00) 08/05/18 19:40 Absolute Monos (auto) 1.73 10^3/uL (0.30-0.80) H 08/05/18 19:40 Absolute Eos (auto) 0.03 10^3/uL (0.03-0.40) 08/05/18 19:40 Absolute Basos (auto) 0.03 10^3/uL (0.02-0.10) 08/05/18 19:40 Absolute Nucleated RBC 0.00 10^3/uL (0-0.01) 08/05/18 19:40 Immature Gran % 0.5 % (0.0-1.1) 08/05/18 19:40 Immature Gran # 0.09 10^3/uL (0.00-0.10) 08/05/18 19:40 RBC/WBC/PLT Morphology TNP 08/05/18 19:40 Platelet Estimate TNP 08/05/18 19:40 Sodium 136 mEq/L (135-145) 08/05/18 19:40 Potassium 4.1 mEq/L (3.5-5.2) 08/05/18 19:40 Chloride 106 mEq/L (97-110) 08/05/18 19:40 Carbon Dioxide 20 mEq/l (22-31) L 08/05/18 19:40 Anion Gap 10 mEq/L (6-14) 08/05/18 19:40 BUN 23 mg/dL (7-23) 08/05/18 19:40 Creatinine 1.0 mg/dL (0.6-1.0) 08/05/18 19:40 Estimated GFR 53 08/05/18 19:40 Glucose 152 mg/dL (70-100) H 08/05/18 19:40 Calcium 10.7 mg/dL (8.5-10.4) H 08/05/18 19:40 Phosphorus 2.9 mg/dL (2.5-4.5) 08/05/18 19:40 Procalcitonin 0.08 ng/mL (0.02-0.10) 08/05/18 19:40 Urine Color YELLOW 08/05/18 21:47 Urine Appearance HAZY 08/05/18 21:47 Urine pH 5.0 (5.0-7.5) 08/05/18 21:47 Ur Specific [place] 1.018 (1.002-1.030) 08/05/18 21:47 Urine Protein 2+ (NEGATIVE) H 08/05/18 21:47 Urine Ketones NEGATIVE (NEGATIVE) 08/05/18 21:47 Urine Blood 3+ (NEGATIVE) H 08/05/18 21:47 Urine Nitrate POSITIVE (NEGATIVE) H 08/05/18 21:47 Urine Bilirubin NEGATIVE (NEGATIVE) 08/05/18 21:47 Urine Urobilinogen NEGATIVE EU (0.2-1.0) 08/05/18 21:47 Ur Leukocyte Esterase 1+ (NEGATIVE) H 08/05/18 21:47 Urine RBC 50-182 /hpf (0-3) H 08/05/18 21:47 Urine WBC 25-50 /hpf (0-3) H 08/05/18 21:47 Ur Epithelial Cells TRACE /lpf (NONE-1+) 08/05/18 21:47 Urine Bacteria 3+ /hpf (NONE SEEN) H 08/05/18 21:47 Urine Mucus TRACE /lpf (NONE-1+) 08/05/18 21:47 Urine Glucose NEGATIVE (NEGATIVE) 08/05/18 21:47 Nasal Influenza A PCR NEGATIVE FOR FLU A (NEGATIVE) 08/05/18 19:40 Nasal Influenza B PCR NEGATIVE FOR FLU B (NEGATIVE) 08/05/18 19:40 RSV (PCR) NEGATIVE FOR RSV (NEGATIVE) 08/05/18 19:40 Imaging Review: Imaging Impressions Chest X-Ray 08/05/18 19:40 Impression: No acute findings in the chest. Chest/Thorax CTA 08/05/18 20:44 Impression: 1. Slightly limited study, with no visible pulmonary embolus. 2. New small pulmonary nodules, which could be related to metastases but are nonspecific. Short-term follow-up CT is recommended in three months. 3. Possible new hyperenhancing lesion in the left lobe of the liver. This could represent new/recurrent HCC. 4. Additional findings, as above. Findings discussed with Zane Escobar M.D., on August 05, 2018 at 2158. E:amm Assessment & Plan Assessment: 77 yo F w/ HTN, HCC, AF, and renal cyst(?RCC) presents with likely viral URI. Plan: 1. Cough, fatigue - Suspect viral URI noting constellation of symptoms. CTPE ( personally reviewed/interpreted) negative for PE or pneumonia. - Admit for observation - Observe off of antibiotics - Blood cultures, respiratory PCR ordered - Will check procalcitonin - Cough suppressants PRN 2. Asymptomatic bacteriuria - UA with heavy RBC's and moderate WBC's. The patient denies urinary symptoms. Known renal cyst (?RCC) may explain urinary abnormalities. - S/p Zosyn x1 in ED - Will observe off of further antibiotics noting lack of symptoms - Urine culture pending 3. HTN - Elevated initially but she had not taken her nighttime meds. - Will continue amlodipine, verapamil, and losartan qHS 4. HCC - S/p embolization with prior hx of subcapsular bleed. 5. AF - Off of anticoagulation since bleed related to HCC. 6. Cystic lesion, L kidney - Imaging concerning for RCC. Per patient this is simply being observed at this time. Diet - Regular Code - Full Ppx - SCDs noting hx of prior bleeding complications Dispo - Admit under observation status
[2018-08-06] MEDS: oxyCODONE IR 5 MG TAB PO PRN ×2 (05:40→11:34)
[2018-08-06 05:46] LABS: PLATELET COUNT 254 10^3/uL (150-400)
[2018-08-06 07:43] VITALS: BP 150/62
--- NOTE | 2018-08-06 12:16 | GDS ---
ALL DIAGNOSES: 1. Acute bronchitis. 2. Asymptomatic bacteriuria. 3. Hypertension. 4. Hepatocellular carcinoma. 5. Atrial fibrillation, off anticoagulation. 6. Left kidney cystic lesion, concerning for renal cell carcinoma. HOSPITAL COURSE: This is a 77-year-old female who presented with 2 weeks of a cough. She was noted to have an elevated white count, prompting her being admitted for observation. She received 1 dose o f cefepime in the emergency department. Additional antibiotics were not continued at that point. She had a procalcitonin of 0.08. She had a CT angio, which was negative for a PE, as well as pneumonia. It did show pulmonary nodules. When I am seeing her, she is not short of breath. She is still cou ghing. She is anxious for discharge. Her white counts have been chronically elevated. She is on lo w-dose prednisone for rheumatoid arthritis. I do not think that this represents an immunologic respo nse to a severe infection at this point. I think it is reasonable to treat her with a Z-Jl given he r 2 weeks of cough for a bacterial bronchitis. I will also increase her steroids from 5 mg daily to 20 mg daily for the next 5 days given her difficulty with clearing her secretions. I have recommende d that she use an albuterol inhaler to help her clear her secretions, as well as Mucinex. She unders tands all this and feels anxious for discharge overall. She should follow up with Dr. Munguia, who is tracking her hepatocellular carcinoma, as well as following her renal cyst. Her blood cultures ar e no growth to date, but they are still pending. DISPOSITION: She is discharged in stable condition. /[id number]/MODL
--- NOTE | 2018-08-06 12:35 | ASDISCHSUM ---
Discharge Information Plan Status:Home with No Needs Medically Cleared to Leave:08/05/2018 Discharge Date:08/05/2018 CM D/C Disposition:Home, Routine, Self-Care ADT D/C Disposition:Home, Routine, Self-Care Projected Discharge Date:08/05/2018 Transportation at D/C:Family Discharge Delay Reason: Follow-Up Date:08/05/2018 Discharge Slot: Final Diagnosis:UTI, bronchitis Placement Information Patient Contact Information Contact Name:YORDY Relationship:Daughter Address:[address] Work Phone: City:[place] Alternate Phone: State/Zip Code:[place] [address] Email: Financial Information Financial Class:Medicare Primary Plan Desc:MEDICARE OUTPATIENT Primary Plan Number:[id number] Secondary Plan Desc: OUT OF STATE [facility] Secondary Plan Number:[id number] Assessment Information Case Management Discharge Plan Note Case Management Discharge Discharge Order Complete? Answers: Yes Patient to Obtain Answers: via Family Medications Transportation Arranged Answers: Family/Friends Transport will Pick (Date 08/06/2018 12:00 AM & Time) Family Notified Answers: Yes Notes: by pt. Discharge Comments Notes: Spoke with pt in the room. Pt waiting for daughter who lives near her to pick her up and help her obtain medications on the way home. Pt denied needing further support. No CM needs noted at this time. Date Signed: 08/06/2018 11:33 AM Electronically Signed By:Janis Silverman NEOE LACKierra Length of stay for Answers: Less than 1 day current admission Acuity / Level of Answers: No Care: Did the patient have an inpatient admission? Comorbidities - select Answers: Any tumor (including all that apply lymphoma or leukemia) Other Notes: HTN, A fib # of Emergency department Answers: 1-2 visits in the last 6 months Score: 4 Date Signed: 08/06/2018 11:35 AM Electronically Signed By:Janis Silverman Intervention Information
--- NOTE | 2018-08-06 12:41 | ASMTDCNOTE ---
Case Management Discharge Discharge Order Complete? Answers: Yes Patient to Obtain Answers: via Family Medications Transportation Arranged Answers: Family/Friends Transport will Pick (Date 08/06/2018 12:00 AM & Time) Family Notified Answers: Yes Notes: by pt. Discharge Comments Notes: Spoke with pt in the room. Pt waiting for daughter who lives near her to pick her up and help her obtain medications on the way home. Pt denied needing further support. No CM needs noted at this time. Date Signed: 08/06/2018 11:33 AM Electronically Signed By:Janis Silverman
--- NOTE | 2018-08-06 12:41 | ASMTLACE ---
LACE Length of stay for Answers: Less than 1 day current admission Acuity / Level of Answers: No Care: Did the patient have an inpatient admission? Comorbidities - select Answers: Any tumor (including all that apply lymphoma or leukemia) Other Notes: HTN, A fib # of Emergency department Answers: 1-2 visits in the last 6 months Score: 4 Date Signed: 08/06/2018 11:35 AM Electronically Signed By:Janis Silverman
[2018-08-06] MEDS ORDERED: FLUTICASONE NASAL 120 SPRAYS/16 GM MDI EACHNARE SCH (21:00)
[2018-08-06] MEDS ORDERED: CHOLECALCIFEROL VIT D3 2,000 UNITS TAB/CAP PO SCH (21:00)
[2018-08-06] MEDS ORDERED: NON-FORMULARY NEW DRUG (Ranitidine Hcl [Zantac] 150 MG) PO SCH (21:00)
[2018-08-06] MEDS ORDERED: CETIRIZINE 10 MG TAB PO SCH (21:00)
== END 2018-08-06 13:12 | disposition home or self-care (01) ==
LOC: F3E 08-06 00:50
PROVIDERS: ADMIT Student in an Organized Health Care Education/Training Program; ATTEND Student in an Organized Health Care Education/Training Program
DX: J20.9 Acute bronchitis, unspecified (principal); R82.71 Bacteriuria; I10 Essential (primary) hypertension; I48.91 Unspecified atrial fibrillation; C22.0 Liver cell carcinoma; N28.1 Cyst of kidney, acquired; M06.9 Rheumatoid arthritis, unspecified
CPT/HCPCS: 71046; 71275; 96361; 96374; 99285; G0378; J2543; Q9967

== ENCOUNTER 2018-09-09 11:28 | Day surgery (SDC) | payer OTHER, BC ==
[2018-09-09] MEDS ORDERED: ALTEPLASE 2 MG VIAL IVP PRN (11:33)
[2018-09-09] MEDS ORDERED: methylPREDNISolone SOD SUCC 125 MG/2 ML VIAL IVP ONE (11:33)
[2018-09-09] MEDS ORDERED: GLUCAGON HCL 1 MG VIAL IVP PRN (11:33)
[2018-09-09] MEDS ORDERED: PROTAMINE SULFATE 50 MG/5 ML VIAL IVP PRN (11:33)
[2018-09-09] MEDS ORDERED: NALOXONE HCL 0.4 MG/ML INJ IVP PRN (11:33)
[2018-09-09] MEDS ORDERED: fentaNYL 100 MCG/2 ML INJ IVP PRN ×2 (11:33→15:56)
[2018-09-09] MEDS ORDERED: HEPARIN 10,000 UNIT/10 ML MDV (1,000 UNIT/ML) IVP PRN (11:33)
[2018-09-09] MEDS ORDERED: FLUMAZENIL 0.5 MG/5 ML MDV IVP PRN (11:33)
[2018-09-09] MEDS ORDERED: MEPERIDINE 25 MG/ML SYR IVP PRN (11:33)
[2018-09-09] MEDS ORDERED: PANTOPRAZOLE SODIUM 40 MG VIAL IVP ONE ×2 (11:33→13:00)
[2018-09-09] MEDS ORDERED: MIDAZOLAM 2 MG/2 ML VIAL IVP PRN (11:33)
[2018-09-09] MEDS ORDERED: NS 1,000 ML IV ONE (11:33)
[2018-09-09 12:41] LABS: PROTIME(PATIENT) 13.4 SEC (12.0-15.0)
[2018-09-09] MEDS ORDERED: NALOXONE HCL 0.4 MG/ML INJ ONE (13:15)
[2018-09-09] MEDS ORDERED: FLUMAZENIL 0.5 MG/5 ML MDV IVP ONE (13:15)
[2018-09-09] MEDS ORDERED: fentaNYL 100 MCG/2 ML INJ ONE ×2 (13:16→16:36)
[2018-09-09] MEDS ORDERED: MIDAZOLAM 2 MG/2 ML VIAL ONE (13:16)
[2018-09-09] MEDS ORDERED: IOPAMIDOL (ISOVUE 370) 100 ML BTL IV ONE ×2 (13:41→15:26)
[2018-09-09] MEDS ORDERED: OXYCODONE/APAP 5/325 TAB PO PRN (15:43)
[2018-09-09] MEDS ORDERED: ONDANSETRON 4 MG/2 ML VIAL IVP PRN (15:43)
--- NOTE | 2018-09-09 15:46 | PDRADPN ---
Radiology Procedure Note Date of Procedure: 09/09/18 Radiologist: Florina Peterson Anesthesia: IV Sedation Pre-op Diagnosis: HCC Post-op Diagnosis: SAME Indication: LT LOBE Y90 TREATMENT Procedure: LT LOBE Y90 Inf/Abcess present in the surg proc area at time of surgery?: No
--- NOTE | 2018-09-09 15:49 | PDGENHP ---
History & Physical Chief Complaint: HCC History of Present Illness: S/P RT HEPATIC LOBE TREATMENT IN FEBRUARY 2018. NOW WITH LT HEPATIC LOBE TUMORS. Pertinent Past, Social, Family History: NON SMOKER. LFTS NORMAL. Relevant Physical Exam: IN NO DISTRESS Cardiorespiratory Assessment: RRR, CTA
[2018-09-09] MEDS ORDERED: OXYCODONE/APAP 5/325 TAB ONE (16:44)
[2018-09-09 18:37] VITALS: BP 165/70
== END 2018-09-09 18:40 | disposition home or self-care (01) ==
LOC: FIMAGING 11:28
PROVIDERS: ATTEND Radiology Diagnostic Radiology
DX: C22.0 Liver cell carcinoma (principal)
CPT/HCPCS: 36247; 37243; 75726; 77790; 78201; 79445; 99152; 99153; C1769; C1894; C1760; C2616; J1200; J1644; J2250; J2310; J2930; J3010; Q9967

== ENCOUNTER → 2019-01-16 | Outpatient (CLI) | payer OTHER, BC | LOC: BMCIMAGING 12:13 ==

== ENCOUNTER 2019-01-27 13:52 | Observation (INO) | payer OTHER, BC | END 2019-01-28 14:35 | disposition home or self-care (01) | LOC: F1N 16:55 ==